=== PATIENT | male | born 1950 | race Caucasian/White ===

== ENCOUNTER → 2017-07-09 09:56 | Outpatient (CLI) | payer OTHER, SELFPAY ==
[2017-07-09 12:58] LABS: Microalbumin,Random Urine 52.4 mg/L (NO RANGE EST.)
[2017-07-14 12:08] LABS: Testosterone, Free 16.57 ng/dL (5.00-21.00)
[2017-07-14 14:24] LABS: Testosterone, % Free 3.03 % (1.50-4.20); Testosterone, Total 547 ng/dL (264-916)
== END ==
PROVIDERS: Family Provider Internal Medicine; PCP Internal Medicine; Visit Provider Internal Medicine
DX: E11.69 Type 2 diabetes mellitus with other specified complication (principal); E66.9 Obesity, unspecified; N52.9 Male erectile dysfunction, unspecified
CPT/HCPCS: 36415; 82043; 84402; 84403

== ENCOUNTER 2017-07-19 05:59 | Day surgery (SDC) | payer OTHER, SELFPAY ==
[2017-07-09 09:03] VITALS: BP 129/78; BMI 29.0
[2017-07-19 06:26] VITALS: BP 129/74; PULSE 89; RESP 18; O2SAT 98; BMI 29.3
[2017-07-19 07:15] VITALS: BP 107/56; BP 129/74; PULSE 85; RESP 16; TEMP 36.5; O2SAT 94
--- NOTE | 2017-07-19 07:17 | PCM.OPRPT ---
Problem List (1) Epigastric pain Status: Acute Report of Operation Date of Procedure: 07/19/17 Pre-Operative Diagnosis: r10.13 epigastric abdominal pain Post-Operative Diagnosis: Same Surgery/Procedure Performed:: [id number] esophagogastroduodenoscopy with biopsy Type of Anesthesia:: MAC Anesthesiologist: Abhilash Stephenson Description of Procedure: Patient was brought into the endoscopy suite. Back of his throat was sprayed with Cetacaine spray. A bite-block was placed. He was given graded anesthesia. The scope was inserted in the back of his throat and directed down through the esophagus into the stomach and into the duodenum without difficulty. Operative findings: 1. Duodenum: Normal appearance no mass lesions no ulcerations. 2. Stomach: Normal appearance no mass lesions minimal erythema was identified. Biopsy for H. pylori was obtained. Retroflexion did not reveal any signs of hiatal hernia. There was no ulcerations identified. There were no mass lesions identified. 3. Esophagus: Normal appearance no mass lesions no signs of esophagitis. The Z line was entirely normal. There was no signs of any erythema. This was an entirely normal upper scope we will wait for the biopsy for H. pylori. - Admit VTE Documentation VTE Present on Admission: No VTE Mechan Device Prophylaxis: None VTE Pharm Prophylaxis ordered?: No Reason prophylaxis not ordered:: Treatment Not Indicated
[2017-07-19 07:20] VITALS: BP 105/57; BP 129/74; PULSE 85; RESP 16; O2SAT 97
[2017-07-19 07:25] VITALS: BP 109/55; BP 129/74; PULSE 82; RESP 16; O2SAT 97
[2017-07-19 07:30] VITALS: BP 129/70; BP 129/74; PULSE 78; RESP 16; TEMP 36.3; O2SAT 100
[2017-07-19 07:45] VITALS: BP 129/74
== END 2017-07-19 07:45 | disposition home or self-care (01) ==
LOC: EN 06:00 → AC 06:02
PROVIDERS: Family Provider Internal Medicine; PCP Internal Medicine; Visit Provider Surgery
PROC: 0DJ08ZZ Inspection of Upper Intestinal Tract, Via Natural or Artificial Opening Endoscopic (ICD-10-PCS; CPT 43235; principal; 2017-07-19 06:55)
DX: R10.13 Epigastric pain (principal); E78.2 Mixed hyperlipidemia; I10 Essential (primary) hypertension; E11.9 Type 2 diabetes mellitus without complications; I44.0 Atrioventricular block, first degree; Z95.1 Presence of aortocoronary bypass graft; Z79.82 Long term (current) use of aspirin; Z87.891 Personal history of nicotine dependence
CPT/HCPCS: 43239; J7120

== ENCOUNTER 2017-08-02 16:10 | Outpatient (RCR) | payer OTHER, SELFPAY | END 2017-08-11 23:59 | LOC: NS 16:10 | PROVIDERS: Family Provider Internal Medicine; PCP Internal Medicine; Visit Provider Internal Medicine | DX: E11.69 Type 2 diabetes mellitus with other specified complication (principal); E66.9 Obesity, unspecified; Z71.3 Dietary counseling and surveillance | CPT/HCPCS: 97802 ==

== ENCOUNTER 2017-08-31 11:00 | Outpatient (RCR) | payer OTHER, SELFPAY | END 2017-09-11 23:59 | LOC: NS 11:00 | PROVIDERS: Family Provider Internal Medicine; PCP Internal Medicine; Visit Provider Internal Medicine | DX: E66.9 Obesity, unspecified (principal); E11.69 Type 2 diabetes mellitus with other specified complication; Z71.3 Dietary counseling and surveillance | CPT/HCPCS: 97803 ==

== ENCOUNTER → 2017-09-03 09:56 | Outpatient (CLI) | payer OTHER, SELFPAY | PROVIDERS: Family Provider Internal Medicine; PCP Internal Medicine; Visit Provider Nurse Practitioner Family | DX: E11.69 Type 2 diabetes mellitus with other specified complication (principal); E66.9 Obesity, unspecified | CPT/HCPCS: 36415; 83036 ==

== ENCOUNTER 2017-09-28 11:00 | Outpatient (RCR) | payer OTHER, SELFPAY | END 2017-10-11 23:59 | LOC: NS 11:00 | PROVIDERS: Family Provider Internal Medicine; PCP Internal Medicine; Visit Provider Internal Medicine | DX: E66.9 Obesity, unspecified (principal); E11.69 Type 2 diabetes mellitus with other specified complication; Z71.3 Dietary counseling and surveillance | CPT/HCPCS: 97803 ==

== ENCOUNTER 2017-10-27 09:00 | Outpatient (RCR) | payer OTHER, SELFPAY | END 2017-10-27 09:01 | disposition home or self-care (01) | LOC: NS 09:00 | PROVIDERS: Family Provider Internal Medicine; PCP Internal Medicine; Visit Provider Internal Medicine | DX: E66.9 Obesity, unspecified (principal); E11.69 Type 2 diabetes mellitus with other specified complication; Z71.3 Dietary counseling and surveillance | CPT/HCPCS: 97803 ==

== ENCOUNTER 2017-12-14 18:13 | Observation (INO) | payer OTHER, SELFPAY ==
[2017-12-14 18:14] VITALS: BP 162/80; PULSE 81; RESP 16; TEMP 36.4; O2SAT 100; BMI 28.0
--- NOTE | 2017-12-14 18:27 | ED.RN ---
PT WITH PUNCTURE ON BOTTOM OF RIGHT FOOT PT REPORTS STEPPING ON PIECE OF MULCH YESTERDAY. MINIMAL BLEEDING. REDNESS UP TO BASE OF ANKLE ON RIGHT LEG. MARKED WITH KARRIE.
--- NOTE | 2017-12-14 18:33 | ED.RN ---
pt reports stepping on mulch in the garage yesterday. puncture wound to right lower foot. reports minimal bleeding yesterday. pt with redness up into right ankle . marked with marker. pt reports tenderness but is walking.
--- NOTE | 2017-12-14 19:05 | ED.VISSUMM ---
- ER Visit Summary Date of Service: 12/14/17 Chief Complaint: Right foot cellulitis History of Present Illness: The patient is a 67 M puncture right foot yesterday around 4 PM while stepping in mulch. States put a piece of wood through his sandals. States he tried removing more with the razor yesterday. Tetanus unknown. Bleeding while removing however controlled. He is on baby aspirins. No fevers. He is a diabetic, states over past 24 hours increasing redness to the ankles. No previous similar symptoms. No allergies. Does not follow experience specialist. Physical Examination: General: Alert and oriented ?3, no acute distress HEENT: Normocephalic, atraumatic. Moist mucosa membranes Neck: supple, nontender. Cardiovascular: Regular rate and rhythm, no murmurs Respiratory: Normal breath sounds, symmetric, no distress Abdomen: Soft, nontender, nondistended Extremities: Right lower extremity: No knee or ankle tenderness. There is a puncture plantar aspect of foot near the third metatarsal. Mild tender palpation no active drainage. There is swelling erythema of the whole foot up to the ankle line. Neuro: no focal neurological deficits. Test Results: WBC 6.5. Hemoglobin 15.2. Creatinine 1.05. Glucose 153. ESR 3, CRP 4. Blood culture ?2. Right foot x-ray: No radiopaque foreign bodies, no soft tissue gas. Emergency Department Course and Treatment: Patient with progressive cellulitis foot to his ankle, erythema was outlined by nursing on presentation, on my evaluation the erythema was moving past the line. He is a diabetic. There is no drainage from the wound. Labs are stable, slightly elevated CRP. Was given Zosyn and vancomycin IV. There is no radiopaque foreign bodies on x-ray. Concerns for residual foreign body with the puncture causing his cellulitis, I did speak with covering experience specialist, Dr. Espinoza, he will follow-up as an inpatient. He states if symptoms do not improve tomorrow would likely get an MRI of the foot. I spoke with Dr. Yip, who will admit for further management. Treatment Plan: [] Disposition: Admission Impression: 1. Right foot cellulitis 2. Right foot puncture 3. History diabetes This note was generated with [employer] software. It may contain incorrect words, spelling, and punctuation that were not noted in review of the chart prior to signing ED Disposition - Plan for ED Patient: Disposition: Acute Care Hospital [facility] Chief Complaint: Lower Extremity Injury Diagnosis: Right foot and ankle cellulitis, Puncture wound of right foot Referrals: Orlando Claire MD [Primary Care Provider] -
[2017-12-14 19:21] LABS: Absolute Lymphocyte Count 1.67 X10^3/ul (0.83-4.51); Absolute Neutrophil Count 3.8 X10^3/uL (2.0-7.7); Basophil# 0.04 X10^3/uL; Basophil% 0.6 % (0-1); Eosinophil# 0.28 X10^3/uL; Eosinophils% 4.3 % (0-5); Hematocrit 45.5 % (40-54); Hemoglobin 15.2 g/dl (13.0-16.5); Lymphocyte # 1.67 X10^3/ul (4.0); Lymphocyte % 25.7 % (19-41); Mean Corp Hgb Conc 33.4 g/gl (32-36); Mean Corpuscular Hgb 31.8 pg (27.0-32.0); Mean Corpuscular Volume 95.2 fL (80-94); Mean Platelet Vol. 9.5 fl (6.2-12.0); Monocyte# 0.67 X10^3/uL; Monocyte% 10.3 % (0-10); Neutrophil # 3.84 X10^3/uL (2.7-7.7); Neutrophil % 58.9 % (47-70); Platelet Count 238 K/mm3 (150-450); RBC Distribution Width CV 12.4 % (11.6-14.6); RBC Distribution Width SD 42.7 fl (35.1-43.9); Red Blood Count 4.78 M/mm3 (4.6-6.2); White Blood Count 6.5 K/mm3 (4.4-11.0)
[2017-12-14 19:22] LABS: POSITIVE COUNT NO; POSITIVE DIFFERENTIAL NO; POSITIVE MORPHOLOGY NO
[2017-12-14 19:30] LABS: Prothrombin Time (Protime)PT. 13.3 SECONDS (11.7-14.9)
[2017-12-14] MEDS: Diphth,Pertuss(Acell),Tet Vac 0.5 ML Vial IM (19:30)
[2017-12-14 19:31] LABS: Partial Thromboplast Time 30.4 Seconds (24.1-36.2)
[2017-12-14 19:41] LABS: Anion Gap 7 (5-15); BUN 26 mg/dL (7-18); BUN/Creat Ratio 24.8 RATIO (10-20); CRP, High Sensitivity Cardiac 4.08 mg/L; Calcium,Total 8.8 mg/dL (8.5-10.1); Chloride 102 mmol/L (98-107); Creatinine, Serum 1.05 mg/dL (0.70-1.30); EST Glomerular Filtration Rate 75 mL/min (>60); Est Glom Filt Rate - Afr Amer 91 mL/min (>60); Estimated Creatinine Clearance 81.55 ml/min; Glucose 153 mg/dL (74-106); Potassium 4.3 mmol/L (3.5-5.1); Sodium Level 138 mmol/L (136-145)
[2017-12-14 19:48] LABS: Erythrocyte Sedimentation Rate 3 mm/hr (0-20)
[2017-12-14 20:28] VITALS: BP 131/64; PULSE 82; RESP 14; O2SAT 96
--- NOTE | 2017-12-14 20:50 | RAD_ITS ---
STUDY: X-RAY - RIGHT FOOT CLINICAL: Male, 67 years old. PATIENT STEPPED ON OBJECT 4PM YESTERDAY, POSSIBLE FOREIGN BODY POSTERIOR FOOT NEAR BASE OF METATARSALS, NOW HAS SYMPTOMS OF CELLULITIS. TECHNIQUE: 3 view(s) of the foot. COMPARISON: None. FINDINGS: Normal talus, calcaneus, and tarsal bones. Normal visualized subtalar, talonavicular, calcaneocuboid, tarsal and tarsometatarsal articulations. Normal metatarsi. Normal metatarsophalangeal joint of the great toe. Normal tibial and fibular sesamoid bones. Normal interphalangeal joint of the great toe. Normal phalanges of the great toe. Normal second through fifth metatarsophalangeal joints. Normal interphalangeal joints and phalanges of the lesser toes. The soft tissue structures are unremarkable. RAD/Foot min 3 Views IMPRESSION: Normal x-ray examination of the foot. There are no radiodense foreign bodies noted. Electronically Signed: Eyal Casarez MD at 21:32 EDT , Service support ,
[2017-12-14 22:18] VITALS: BP 130/74; PULSE 85; RESP 14; TEMP 36.1; O2SAT 99
[2017-12-14 22:20] LABS: Bedside Glucose 100 mg/dL (70-110)
--- NOTE | 2017-12-14 23:02 | PCM.HP.STD ---
Problem List (1) Cellulitis Status: Acute Qualifiers: Site of cellulitis: extremity Site of cellulitis of extremity: lower extremity Laterality: right Qualified Code(s): L03.115 - Cellulitis of right lower limb (2) Diabetes mellitus type 2 in nonobese Status: Chronic (3) Puncture wound of right foot Status: Acute (4) GERD (gastroesophageal reflux disease) Status: Chronic (5) Type 2 diabetes mellitus Status: Chronic (6) Epigastric pain Status: Resolved (7) Erectile dysfunction Status: Chronic (8) Valvular heart disease Status: Chronic Comment: Bicuspid aortic valve, mitral valve prolapse (9) Hyperlipemia, mixed Status: Chronic (10) Essential (primary) hypertension Status: Chronic (11) Hx of tonsillectomy Status: Chronic (12) Atherosclerosis of [place] coronary artery of [place] heart without angina pectoris Status: Chronic Comment: DYSON to LAD, Radial artery to high LCX, IVETT composite graft to lateral LCX 04/07/2005; (13) Overweight (BMI 25.0-29.9) Status: Chronic (14) History of tobacco use Status: Chronic (15) Unstable angina pectoris Status: Acute (16) S/P CABG x 2 Status: Chronic (17) Bicuspid aortic valve Status: Chronic (18) MVP (mitral valve prolapse) Status: Chronic History of Present Illness Date of Admission: 12/14/17 Chief Complaint: redness and pain in the Right foot The patient is a 67 year old M with a past medical history of hypertension, diabetes mellitus type 2, hyperlipidemia, coronary artery disease, CABG ?2 vessels in 2004, bicuspid aortic valve, mitral valve prolapse and GERD who presented to the emergency department at [facility] on 12/14/2017 complaining of pain with weightbearing in his right foot associated with redness extending up to the ankle. On 12/13/17 he was walking outside in his slippers through some mulch and apparently his slipper was penetrated by some sliver of wood. He felt a foreign body type sensation in his foot and he initially tried to do get out with a needle and when this was nonproductive he used a razor blade. Today his right foot is mildly swollen and painful with weightbearing. The erythema is now extending to just above the ankle. He denies fevers, chills, sweats. Plain x-ray of the foot in the emergency room revealed no foreign objects. Temp at presentation to the ER was 97.5?F. White blood cell count is normal at 6.5 with a normal differential. Electrolytes are normal and the BUN is mildly increased with a creatinine of 1.05. The sed rate is 3 and the CRP is 4.08. He was given Vanco and Zosyn in the ED. The ED physician was in contact with Dr. Espinoza who will see him in consult in the AM and if there is no improvement will recommend and MRI of the foot. On PE there is no DC from the puncture wound. Past Medical History Past Medical History (Chronic Problems): Chronic Problems (This Medical Record has been edited. Action required.) Diabetes mellitus type 2 in nonobese (Chronic) GERD (gastroesophageal reflux disease) (Chronic) Type 2 diabetes mellitus (Chronic) Erectile dysfunction (Chronic) Valvular heart disease (Chronic) Bicuspid aortic valve, mitral valve prolapse Hyperlipemia, mixed (Chronic) Essential (primary) hypertension (Chronic) Hx of tonsillectomy (Chronic) Atherosclerosis of [place] coronary artery of [place] heart without angina pectoris (Chronic) DYSON to LAD, Radial artery to high LCX, IVETT composite graft to lateral LCX 04/07/2005; Overweight (BMI 25.0-29.9) (Chronic) History of tobacco use (Chronic) S/P CABG x 2 (Chronic ~04/07/05) Bicuspid aortic valve (Chronic) MVP (mitral valve prolapse) (Chronic) Medical History: Medical History (This Medical Record has been edited. Action required.) Hyperlipemia, mixed (Chronic) E78.2 Essential (primary) hypertension (Chronic) I10 Diabetes mellitus type 2 in obese (Chronic) E11.69, E66.9 Overweight (BMI 25.0-29.9) (Chronic) E66.3 History of tobacco use (Chronic) Z87.891 Unstable angina pectoris (Acute) I20.0 Bicuspid aortic valve (Chronic) Q23.1 MVP (mitral valve prolapse) (Chronic) I34.1 Allergies No Known Allergies Allergy (Verified 12/14/17 18:15) Home Medications: Ambulatory Orders Medication Instructions Recorded Aspirin 325 mg PO DAILY 06/03/17 Niacin [Niacin ER] 500 mg PO DAILY 06/03/17 Ramipril [Altace] 2.5 mg PO DAILY 06/03/17 blood sugar diagnostic strips See Dose Instructions .ROUTE 06/09/17 .MEDSUPPLY #50 ea blood-glucose meter See Dose Instructions .ROUTE 06/09/17 .MEDSUPPLY #1 ea easy touch test strips #100 ea 07/09/17 lancets 30 gauge See Dose Instructions .ROUTE 07/14/17 .MEDSUPPLY #100 ea blood pressure monitor kit See Dose Instructions .ROUTE 08/06/17 .MEDSUPPLY #1 ea atorvastatin 40 mg tablet 20 mg PO QHS tab 10/15/17 metformin 1,000 mg tablet 1,000 mg PO BID #180 tab 10/15/17 tadalafil 20 mg tablet 20 mg PO QDAY PRN #6 tab 10/15/17 Surgical History: Surgical History (This Medical Record has been edited. Action required.) S/P CABG x 2 (Chronic) Onset Date: ~04/07/05 Z95.1 Surgical History: coronary bypass surgery - 2004, tonsillectomy Psychiatric History: No pertinent psych hx Lives: Spouse/ Significant Other Smoking Status: Never smoker - quit in 1997 Tobacco Use: Non-smoker Alcohol: Occasional Drugs: None - *Family History Maternal Family History: Family History (This Medical Record has been edited. Action required.) Mother CAD (coronary artery disease) Father CAD (coronary artery disease) Diabetes History Items: Heart Disease Paternal Family History: Family History (This Medical Record has been edited. Action required.) Mother CAD (coronary artery disease) Father CAD (coronary artery disease) Diabetes History Items: Heart Disease Sibling Family History: Family History (This Medical Record has been edited. Action required.) Mother CAD (coronary artery disease) Father CAD (coronary artery disease) Diabetes History Items: Cancer - of the throat in his brother who was a heavy drinker and a smoker Review of Systems Constitutional: Denies: Chills, Fever, Weight Change Eyes: Denies: Vision Change HEENT: Denies: Head Aches, Sinus Congestion, Sinus Drainage Cardiovascular: Denies: Chest Pain, Palpitations Respiratory: Denies: Cough, Shortness of breath at rest, Sputum production Gastrointestinal: Denies: Abdominal Pain, Nausea, Vomiting Genitourinary: Denies: Dysuria Musculoskeletal: Reports: Foot Pain - right. Denies: Joint Pain, Joint Tenderness Skin: Denies: Rash, Wounds Neurological: Denies: Numbness, Tingling, Focal weakness Psychiatric: Denies: Anxiety, Depression, Homicidal Ideations, Suicidal Ideations Hematologic/ Lymphatic: Denies: Easy Bruising, Easy Bleeding, Hx of blood clot VTE Information - Inpt Only VTE Present on Admission: No VTE Mechan Device Prophylaxis: None - he is ambulatory and the risk is only 2 VTE Pharm Prophylaxis ordered?: Yes Patient Problems: Active and Suspected Problems (This Medical Record has been edited. Action required.) Puncture wound of right foot (Acute) Cellulitis (Acute) - Physical Exam General: Alert, Oriented x3, Cooperative HEENT: Atraumatic, PERRLA, EOMI, Normocephalic Oral: No Gingival or Mucosal Lesions/ Ulcerations, Dry Mucosa Neck: Supple, No JVD, Negative Carotid Bruits, No Nodes, Trachea Midline Lungs: Clear to auscultation, Normal air movement Cardiovascular: Regular rate, Regular Rhythm, Normal S1, Normal S2, No murmurs, No rub noted, No Gallop Abdomen: Bowel Sounds Present, Soft, Non Tender Extremities: - - there is an opening in the skin over the plantar surface of the R foot. There is edema around the puncture site. The toes and dorsum of the foot are erythematous and the erythema extends to just proximal to the ankle. No DC could be expressed from the wound Skin: No rashes, Ulcer/ Wound - R foot plantar surface Musculoskeletal: No Muscle Wasting Neurological: Cranial nerves II-XII grossly intact, Neuro grossly intact Psych/Mental Status: Normal Affect, Appropriate Vital Signs Temp Pulse Resp BP Pulse Ox 97.0 F L 85 14 130/74 H 99 12/14/17 22:18 12/14/17 22:18 12/14/17 22:18 12/14/17 22:18 12/14/17 22:18 Oxygen Delivery Method Room Air Weight: 218 lb Body Mass Index (BMI) 28.0 Finger Stick Blood Glucose 100 Laboratory Tests Past 24 Hrs 12/14/17 12/14/17 12/14/17 19:13 19:13 19:13 WBC 6.5 RBC 4.78 Hgb 15.2 Hct 45.5 MCV 95.2 H MCH 31.8 MCHC 33.4 RDW 12.4 RDW Differential 42.7 Plt Count 238 MPV 9.5 Immature Gran % (Auto) 0.200 Neut % (Auto) 58.9 Lymph % (Auto) 25.7 [place] % (Auto) 10.3 H Eos % (Auto) 4.3 Baso % (Auto) 0.6 Absolute Neuts (auto) 3.8 Absolute Lymphs (auto) 1.67 Total Counted Not Reportable ESR 3 PT 13.3 INR 1.0 APTT 30.4 Sodium 138 Potassium 4.3 Chloride 102 Carbon Dioxide 29.0 Anion Gap 7 BUN 26 H Creatinine 1.05 Estim Creat Clear Calc 81.55 Est GFR (MDRD) Af Amer 91 Est GFR (MDRD) Non-Af 75 BUN/Creatinine Ratio 24.8 H Glucose 153 H Calcium 8.8 C-React Prot High Sens 4.08 H POC Glucose 12/14/17 22:09 POC Glucose 100 Assessment/Plan All Active Problems (This Medical Record has been edited. Action required.) Puncture wound of right foot (Acute) Cellulitis (Acute) Unstable angina pectoris (Acute) Epigastric pain (Resolved) Impressions 1. Puncture wound plantar surface of the Right foot 2. diabetic foot infection 3. DM II 4. Hypertension 5. Hyperlipidemia 6. Coronary artery disease 7. History of CABG ?2 in 2004 8. GERD 9. Bicuspid aortic valve 10. Mild mitral valve prolapse Admit to medical floor for observation Consult Dr. Espinoza check a HGBA1C Tight BS control dry dressing Recheck lab in the AM No hx of MRSA and not recently in a health care facility so will place him on Rocephin and Metronidazole per protocol Elevate the RLE If the erythema increases he gets worse in any way overnight will check an MRI of the right foot in the AM Code Visit OBSV E&M: [id number] Initial observation care L3
[2017-12-15 00:20] VITALS: BP 134/70; PULSE 82; RESP 16; TEMP 36.3; O2SAT 96
[2017-12-15] MEDS: 0.9% Normal Saline 1,000 ML 100 ML IV (00:51)
[2017-12-15] MEDS: 0.9% NaCl Peripheral Flush Adult/Peds IV (00:53)
[2017-12-15 00:57] VITALS: BMI 28.0; BMI 28.9
[2017-12-15] MEDS: Ceftriaxone 1 GM/50 ML BAG IV (02:22)
[2017-12-15 05:47] VITALS: BP 132/70; PULSE 83; RESP 18; TEMP 36.4; O2SAT 95
[2017-12-15 05:54] LABS: Absolute Lymphocyte Count 1.51 X10^3/ul (0.83-4.51); Absolute Neutrophil Count 3.1 X10^3/uL (2.0-7.7); Basophil# 0.04 X10^3/uL; Basophil% 0.7 % (0-1); Eosinophil# 0.28 X10^3/uL; Hematocrit 44.3 % (40-54); Hemoglobin 15.2 g/dl (13.0-16.5); Lymphocyte # 1.51 X10^3/ul (4.0); Lymphocyte % 26.9 % (19-41); Mean Corp Hgb Conc 34.3 g/gl (32-36); Mean Corpuscular Hgb 32.5 pg (27.0-32.0); Mean Corpuscular Volume 94.7 fL (80-94); Mean Platelet Vol. 9.8 fl (6.2-12.0); Monocyte# 0.67 X10^3/uL; Monocyte% 11.9 % (0-10); Neutrophil # 3.09 X10^3/uL (2.7-7.7); Neutrophil % 55.1 % (47-70); Platelet Count 228 K/mm3 (150-450); RBC Distribution Width CV 12.1 % (11.6-14.6); RBC Distribution Width SD 41.4 fl (35.1-43.9); Red Blood Count 4.68 M/mm3 (4.6-6.2); White Blood Count 5.6 K/mm3 (4.4-11.0)
[2017-12-15 06:00] LABS: Anion Gap 8 (5-15); BUN 22 mg/dL (7-18); BUN/Creat Ratio 23.7 RATIO (10-20); Calcium,Total 8.5 mg/dL (8.5-10.1); Chloride 107 mmol/L (98-107); Creatinine, Serum 0.93 mg/dL (0.70-1.30); EST Glomerular Filtration Rate 87 mL/min (>60); Est Glom Filt Rate - Afr Amer 105 mL/min (>60); Estimated Creatinine Clearance 92.07 ml/min; Glucose 145 mg/dL (74-106); Potassium 4.1 mmol/L (3.5-5.1); Sodium Level 141 mmol/L (136-145)
[2017-12-15 06:15] LABS: POSITIVE COUNT NO; POSITIVE DIFFERENTIAL NO; POSITIVE MORPHOLOGY NO
[2017-12-15 07:15] LABS: Hemoglobin A1c 6.4 % (4.2-6.3)
[2017-12-15 07:26] LABS: Bedside Glucose 146 mg/dL (70-110)
[2017-12-15 10:20] VITALS: BP 144/79; PULSE 92; RESP 16; TEMP 36.6; O2SAT 97
[2017-12-15] MEDS: metFORMIN HCl 1,000 MG Tablet 1000 MG PO (10:25)
[2017-12-15] MEDS: Ramipril 2.5 MG Capsule PO (10:27)
--- NOTE | 2017-12-15 10:31 | PCM.PROGNOTE ---
Patient Problems: Active and Suspected Problems (This Medical Record has been edited. Action required.) Puncture wound of right foot (Acute) Cellulitis (Acute) Subjective: This 67 year old diabetic male was consulted to podiatry after being admitted through the emergency room for cellulitis of foot and lower ankle after having stepped on a piece of mulch Wednesday around 4pm that went through the bottom of his slipper and into his foot. Patient is resting in bed with in the room. Patient says that they tried to make sure nothing was left in the foot using a pin and that the patient also use a razor blade to lightly try to remove anything that may have been left. He says that over the course of yesterday he noticed some redness and swelling and they decided to come to the ER since he is diabetic. Patient says there is some slight tenderness around the area but it is getting better. He also denies ever having any feelings of nausea, vomiting, fever, or chills. - Physical Exam General: Alert, Oriented x3, Cooperative, No apparent distress Extremities: Capillary Refill Less than 3 Seconds - to distal digits of foot bilateral, No Calf Tenderness - negative marizol and antoine sign bilateral, Edema - Very slight edema appreciated to plantar forefoot, but this is much improved since last night according to the patient and his , Peripheral Pulses Normal - DP and PT pulses palpable bilateral Skin: Ulcer/ Wound - Small puncture wound appreciated to plantar right foot. with some overlying hyperkeratotic tissue. This hyperkeratotic tissue was debrided. There was no remaining foreign body able to be visualized in the immediate area. There was no purulence, no deep probing or tracking. No cellulitis appreciated today. Some minor edema appreciated to forefoot plantarly, however, this is much improved since last night according to the patient and his . No increase in warmth today appreciated to foot. Musculoskeletal: Tenderness - Some slight tenderness appreciated in all directions surrounding the puncture wound. This tenderness is much improved again since yesterday, according to the patient. Neurological: Sensory exam intact to light touch and pain Psych/Mental Status: Normal Affect, Appropriate Vital Signs Temp Pulse Resp BP Pulse Ox 98 F 92 16 144/79 H 97 12/15/17 10:20 12/15/17 10:20 12/15/17 10:20 12/15/17 10:20 12/15/17 10:20 Oxygen Delivery Method Room Air Weight: 102.1 kg Body Mass Index (BMI) 28.9 Intake and Output for Last 24 Hours 12/13/17 12/14/17 12/15/17 23:59 23:59 23:59 Intake Total 677 / 677 Balance 677 / 677 Laboratory Tests Past 24 Hrs 12/15/17 12/15/17 12/15/17 05:05 05:05 05:05 WBC 5.6 RBC 4.68 Hgb 15.2 Hct 44.3 MCV 94.7 H MCH 32.5 H MCHC 34.3 RDW 12.1 RDW Differential 41.4 Plt Count 228 MPV 9.8 Immature Gran % (Auto) 0.400 Neut % (Auto) 55.1 Lymph % (Auto) 26.9 [place] % (Auto) 11.9 H Eos % (Auto) 5.0 Baso % (Auto) 0.7 Absolute Neuts (auto) 3.1 Absolute Lymphs (auto) 1.51 Total Counted Not Reportable Sodium 141 Potassium 4.1 Chloride 107 Carbon Dioxide 26.0 Anion Gap 8 BUN 22 H Creatinine 0.93 Estim Creat Clear Calc 92.07 Est GFR (MDRD) Af Amer 105 Est GFR (MDRD) Non-Af 87 BUN/Creatinine Ratio 23.7 H Glucose 145 H Hemoglobin A1c 6.4 H Calcium 8.5 POC Glucose 12/15/17 07:05 POC Glucose 146 H Medical Necessity - Tobacco Use Smoking Status: Former smoker Tobacco Use: Non-smoker Assessment/Plan All Active Problems (This Medical Record has been edited. Action required.) Puncture wound of right foot (Acute) Cellulitis (Acute) Unstable angina pectoris (Acute) Epigastric pain (Resolved) Puncture wound right plantar forefoot Cellulitis right foot-resolved Pain right foot This patient was carefully examined and evaluated bedside this morning. His vital signs remain stable at this time. His WBC is 5.6 and ESR is 3. Blood cultures pending. 3 view foot x-rays were taken last evening and results showed no radiodense foreign bodies and no soft tissue emphysema noted. Could consider MRI if necessary in the future. Over the last evening, the patient's cellulitis has resolved while on antibiotics. No erythema to the area today. Some improving edema to plantar forefoot as well as improving tenderness to area. The site of the puncture was carefully cleansed and then the area was carefully debrided using a number 15 blade in a selective manner. Upon debridement, the patient said he noticed even more of an improvement to his tenderness, but still noted some slight tenderness around the area. There was no purulence or any other drainage appreciated from the area, and no remaining foreign body was able to be visualized in the immediate area. If necessary in the future, could consider MRI or other imaging to evaluate if there is any remaining foreign body in the foot. The area was again carefully cleansed and then dressed with sterile gauze and katty dressing. If patient is discharged, I discussed the importance of keeping weight and pressure off the area until the forefoot is healed. They are to continue to carefully cleanse the area daily and dress the area in the manner discussed above. They were educated on all signs and symptoms of local and systemic infection to watch for. The patient will follow up at [facility] upon discharge for continued care. Please contact with any questions or concerns. Podiatry will continue to follow while in house.
[2017-12-15 11:31] LABS: Bedside Glucose 193 mg/dL (70-110)
--- NOTE | 2017-12-15 11:38 | PCM.DC ---
- Discharge Diagnoses Current Active Problems: Current Active and Chronic Problems (This Medical Record has been edited. Action required.) Puncture wound of right foot (Acute) Cellulitis (Acute) Diabetes mellitus type 2 in nonobese (Chronic) Reason(s) for Visit for Discharge Instructions: R Foot puncture wound with redness of surrounding skin You will use the following diet at home:: Calorie/Carbohydrate Controlled (specify 1200, 1400, etc) Your food should be the consistency of: Regular Discharge Activity: Return to Normal Activity - When your pain is controlled. Call your doctor if your incision/area has: Foul Smelling Discharge Call your doctor if you observe: Fever of 101 or Higher, Uncontrolled pain Allergies/Adverse Reactions: Allergies No Known Allergies Allergy (Verified 12/14/17 18:15) Medications to take at Discharge Aspirin 325 mg PO DAILY 06/03/17 Niacin [Niacin ER] 500 mg PO DAILY 06/03/17 Ramipril [Altace] 2.5 mg PO DAILY 06/03/17 blood sugar diagnostic strips See Dose Instructions .ROUTE .MEDSUPPLY #50 ea 06/09/17 blood-glucose meter See Dose Instructions .ROUTE .MEDSUPPLY #1 ea 06/09/17 easy touch test strips #100 ea 07/09/17 lancets 30 gauge See Dose Instructions .ROUTE .MEDSUPPLY #100 ea 07/14/17 blood pressure monitor kit See Dose Instructions .ROUTE .MEDSUPPLY #1 ea 08/06/17 atorvastatin 40 mg tablet 20 mg PO QHS tab 10/15/17 metformin 1,000 mg tablet 1,000 mg PO BID #180 tab 10/15/17 tadalafil 20 mg tablet 20 mg PO QDAY PRN #6 tab 10/15/17 Acetaminophen [Tylenol Tablet] 650 mg PO Q6H PRN PRN 10 Days #30 tab 12/15/17 Ciprofloxacin [Cipro] 500 mg PO BID 6 Days #12 tab 12/15/17 Metronidazole 500 mg PO BID 6 Days #12 tab 12/15/17 The following prescriptions were given: Acetaminophen [Tylenol Tablet] 650 mg PO Q6H PRN PRN 10 Days #30 tab PRN Reason: Mild Pain (scale 0-3)/T>100.7 Ciprofloxacin [Cipro] 500 mg PO BID 6 Days #12 tab Metronidazole 500 mg PO BID 6 Days #12 tab Primary Care Physician: Orlando Claire MD [Primary Care Provider] - Please follow up with your Primary Care Physician in: in 1 to 2 week Test Results: Please Follow Up With: Juan M Espinoza DPM When: within one to 2 weeks Proposed Discharge Date: 12/15/17
--- NOTE | 2017-12-15 11:48 | DCINST_ITS ---
- Discharge Diagnoses Current Active Problems: Current Active and Chronic Problems (This Medical Record has been edited. Action required.) Puncture wound of right foot (Acute) Cellulitis (Acute) Diabetes mellitus type 2 in nonobese (Chronic) Reason(s) for Visit for Discharge Instructions: R Foot puncture wound with redness of surrounding skin You will use the following diet at home:: Calorie/Carbohydrate Controlled ( specify 1200, 1400, etc) Your food should be the consistency of: Regular Discharge Activity: Return to Normal Activity - When your pain is controlled. Call your doctor if your incision/area has: Foul Smelling Discharge Call your doctor if you observe: Fever of 101 or Higher, Uncontrolled pain Allergies/Adverse Reactions: Allergies No Known Allergies Allergy (Verified 12/14/17 18:15) Medications to take at Discharge Aspirin 325 mg PO DAILY 06/03/17 Niacin [Niacin ER] 500 mg PO DAILY 06/03/17 Ramipril [Altace] 2.5 mg PO DAILY 06/03/17 blood sugar diagnostic strips See Dose Instructions .ROUTE .MEDSUPPLY #50 ea blood-glucose meter See Dose Instructions .ROUTE .MEDSUPPLY #1 ea 06/09/17 easy touch test strips #100 ea 07/09/17 lancets 30 gauge See Dose Instructions .ROUTE .MEDSUPPLY #100 ea 07/14/17 blood pressure monitor kit See Dose Instructions .ROUTE .MEDSUPPLY #1 ea atorvastatin 40 mg tablet 20 mg PO QHS tab 10/15/17 metformin 1,000 mg tablet 1,000 mg PO BID #180 tab 10/15/17 tadalafil 20 mg tablet 20 mg PO QDAY PRN #6 tab 10/15/17 Acetaminophen [Tylenol Tablet] 650 mg PO Q6H PRN PRN 10 Days #30 tab 12/15/17 Ciprofloxacin [Cipro] 500 mg PO BID 6 Days #12 tab 12/15/17 Metronidazole 500 mg PO BID 6 Days #12 tab 12/15/17 The following prescriptions were given: Acetaminophen [Tylenol Tablet] 650 mg PO Q6H PRN PRN 10 Days #30 tab PRN Reason: Mild Pain (scale 0-3)/T>100.7 Ciprofloxacin [Cipro] 500 mg PO BID 6 Days #12 tab Metronidazole 500 mg PO BID 6 Days #12 tab Primary Care Physician: Orlando Claire MD [Primary Care Provider] - Please follow up with your Primary Care Physician in: in 1 to 2 week Test Results: Please Follow Up With: Juan M Espinoza DPM When: within one to 2 weeks Proposed Discharge Date: 12/15/17
--- NOTE | 2017-12-15 17:03 | PCM.DC.SUM ---
Discharge Date and Diagnosis Date of Admission: 12/14/17 Date of Discharge: 12/15/17 - Secondary Discharge Diagnosis Chronic Problems (This Medical Record has been edited. Action required.) Diabetes mellitus type 2 in nonobese (Chronic) GERD (gastroesophageal reflux disease) (Chronic) Type 2 diabetes mellitus (Chronic) Erectile dysfunction (Chronic) Valvular heart disease (Chronic) Bicuspid aortic valve, mitral valve prolapse Hyperlipemia, mixed (Chronic) Essential (primary) hypertension (Chronic) Hx of tonsillectomy (Chronic) Atherosclerosis of [place] coronary artery of [place] heart without angina pectoris (Chronic) DYSON to LAD, Radial artery to high LCX, IVETT composite graft to lateral LCX 04/07/2005; Overweight (BMI 25.0-29.9) (Chronic) History of tobacco use (Chronic) S/P CABG x 2 (Chronic ~04/07/05) Bicuspid aortic valve (Chronic) MVP (mitral valve prolapse) (Chronic) Hospital Course and Treatment Imaging Results: Impressions Foot X-Ray 12/14/17 20:50 IMPRESSION: Normal x-ray examination of the foot. There are no radiodense foreign bodies noted. Electronically Signed: Eyal Casarez MD at 21:32 EDT , Service support , 12/14/17 20:50 Xray Foot [Foot min 3 Views] [RAD] Stat Laboratory Results 12/14/17 12/14/17 12/14/17 Range/Units 19:13 19:13 19:13 WBC 6.5 (4.4-11.0) K/mm3 RBC 4.78 (4.6-6.2) M/mm3 Hgb 15.2 (13.0-16.5) g/dl Hct 45.5 (40-54) % MCV 95.2 H (80-94) fL MCH 31.8 (27.0-32.0) pg MCHC 33.4 (32-36) g/gl RDW 12.4 (11.6-14.6) % RDW Differential 42.7 (35.1-43.9) fl Plt Count 238 (150-450) K/mm3 MPV 9.5 (6.2-12.0) fl Immature Gran % (Auto) 0.200 (0.0-0.9) % Neut % (Auto) 58.9 (47-70) % Lymph % (Auto) 25.7 (19-41) % [place] % (Auto) 10.3 H (0-10) % Eos % (Auto) 4.3 (0-5) % Baso % (Auto) 0.6 (0-1) % Absolute Neuts (auto) 3.8 (2.0-7.7) X10^3/uL Absolute Lymphs (auto) 1.67 (0.83-4.51) X10^3/ul Total Counted Not Reportable ESR 3 (0-20) mm/hr PT 13.3 (11.7-14.9) SECONDS INR 1.0 APTT 30.4 (24.1-36.2) Seconds Sodium 138 (136-145) mmol/L Potassium 4.3 (3.5-5.1) mmol/L Chloride 102 (98-107) mmol/L Carbon Dioxide 29.0 (21.0-32.0) mmol/L Anion Gap 7 (5-15) BUN 26 H (7-18) mg/dL Creatinine 1.05 (0.70-1.30) mg/dL Estim Creat Clear Calc 81.55 ml/min Est GFR (MDRD) Af Amer 91 (>60) mL/min Est GFR (MDRD) Non-Af 75 (>60) mL/min BUN/Creatinine Ratio 24.8 H (10-20) RATIO Glucose 153 H (74-106) mg/dL Hemoglobin A1c (4.2-6.3) % Calcium 8.8 (8.5-10.1) mg/dL C-React Prot High Sens 4.08 H ( - 3.00) mg/L POC Glucose (70-110) mg/dL 12/14/17 12/15/17 12/15/17 Range/Units 22:09 05:05 05:05 WBC 5.6 (4.4-11.0) K/mm3 RBC 4.68 (4.6-6.2) M/mm3 Hgb 15.2 (13.0-16.5) g/dl Hct 44.3 (40-54) % MCV 94.7 H (80-94) fL MCH 32.5 H (27.0-32.0) pg MCHC 34.3 (32-36) g/gl RDW 12.1 (11.6-14.6) % RDW Differential 41.4 (35.1-43.9) fl Plt Count 228 (150-450) K/mm3 MPV 9.8 (6.2-12.0) fl Immature Gran % (Auto) 0.400 (0.0-0.9) % Neut % (Auto) 55.1 (47-70) % Lymph % (Auto) 26.9 (19-41) % [place] % (Auto) 11.9 H (0-10) % Eos % (Auto) 5.0 (0-5) % Baso % (Auto) 0.7 (0-1) % Absolute Neuts (auto) 3.1 (2.0-7.7) X10^3/uL Absolute Lymphs (auto) 1.51 (0.83-4.51) X10^3/ul Total Counted Not Reportable ESR (0-20) mm/hr PT (11.7-14.9) SECONDS INR APTT (24.1-36.2) Seconds Sodium 141 (136-145) mmol/L Potassium 4.1 (3.5-5.1) mmol/L Chloride 107 (98-107) mmol/L Carbon Dioxide 26.0 (21.0-32.0) mmol/L Anion Gap 8 (5-15) BUN 22 H (7-18) mg/dL Creatinine 0.93 (0.70-1.30) mg/dL Estim Creat Clear Calc 92.07 ml/min Est GFR (MDRD) Af Amer 105 (>60) mL/min Est GFR (MDRD) Non-Af 87 (>60) mL/min BUN/Creatinine Ratio 23.7 H (10-20) RATIO Glucose 145 H (74-106) mg/dL Hemoglobin A1c (4.2-6.3) % Calcium 8.5 (8.5-10.1) mg/dL C-React Prot High Sens ( - 3.00) mg/L POC Glucose 100 (70-110) mg/dL 12/15/17 12/15/17 12/15/17 Range/Units 05:05 07:05 11:21 WBC (4.4-11.0) K/mm3 RBC (4.6-6.2) M/mm3 Hgb (13.0-16.5) g/dl Hct (40-54) % MCV (80-94) fL MCH (27.0-32.0) pg MCHC (32-36) g/gl RDW (11.6-14.6) % RDW Differential (35.1-43.9) fl Plt Count (150-450) K/mm3 MPV (6.2-12.0) fl Immature Gran % (Auto) (0.0-0.9) % Neut % (Auto) (47-70) % Lymph % (Auto) (19-41) % [place] % (Auto) (0-10) % Eos % (Auto) (0-5) % Baso % (Auto) (0-1) % Absolute Neuts (auto) (2.0-7.7) X10^3/uL Absolute Lymphs (auto) (0.83-4.51) X10^3/ul Total Counted ESR (0-20) mm/hr PT (11.7-14.9) SECONDS INR APTT (24.1-36.2) Seconds Sodium (136-145) mmol/L Potassium (3.5-5.1) mmol/L Chloride (98-107) mmol/L Carbon Dioxide (21.0-32.0) mmol/L Anion Gap (5-15) BUN (7-18) mg/dL Creatinine (0.70-1.30) mg/dL Estim Creat Clear Calc ml/min Est GFR (MDRD) Af Amer (>60) mL/min Est GFR (MDRD) Non-Af (>60) mL/min BUN/Creatinine Ratio (10-20) RATIO Glucose (74-106) mg/dL Hemoglobin A1c 6.4 H (4.2-6.3) % Calcium (8.5-10.1) mg/dL C-React Prot High Sens ( - 3.00) mg/L POC Glucose 146 H 193 H (70-110) mg/dL Podiatry Operations: None Procedures: - - Incision and drainage Summary of Care Provided: The patient is a 67 year old M with a significant history of diabetes, CABG, bicuspid aortic valve and mitral valve prolapse who was admitted because of a puncture wound of the plantar side of his right foot with associated cellulitis. In the emergency department patient was treated with vancomycin and Zosyn; and he had a tetanus shot. In patients patient was treated with IV ceftriaxone and IV Flagyl. Podiatry was consulted. Podiatry did incision and drainage of the puncture wound. The patient noticed a dramatic improvements of the pain and swelling of his right foot. A shared decision was made to discharge patient home on oral antibiotics. Oral ciprofloxacin and oral metronidazole was prescribed. Patient was instructed to return to the emergency department if his pain increases [] Discharge Diet: Carb Control Diet Discharge Activity: Return to Normal Activity - When your pain is controlled. Call your doctor if your incision/area has: Foul Smelling Discharge Call your doctor if you observe: Fever of 101 or Higher, Uncontrolled pain Home Medications: Medications to take at Discharge Aspirin 325 mg PO DAILY 06/03/17 Niacin [Niacin ER] 500 mg PO DAILY 06/03/17 Ramipril [Altace] 2.5 mg PO DAILY 06/03/17 blood sugar diagnostic strips See Dose Instructions .ROUTE .MEDSUPPLY #50 ea 06/09/17 blood-glucose meter See Dose Instructions .ROUTE .MEDSUPPLY #1 ea 06/09/17 easy touch test strips #100 ea 07/09/17 lancets 30 gauge See Dose Instructions .ROUTE .MEDSUPPLY #100 ea 07/14/17 blood pressure monitor kit See Dose Instructions .ROUTE .MEDSUPPLY #1 ea 08/06/17 atorvastatin 40 mg tablet 20 mg PO QHS tab 10/15/17 metformin 1,000 mg tablet 1,000 mg PO BID #180 tab 10/15/17 tadalafil 20 mg tablet 20 mg PO QDAY PRN #6 tab 10/15/17 Acetaminophen [Tylenol Tablet] 650 mg PO Q6H PRN PRN 10 Days #30 tab 12/15/17 Ciprofloxacin [Cipro] 500 mg PO BID 6 Days #12 tab 12/15/17 Metronidazole 500 mg PO BID 6 Days #12 tab 12/15/17 Following Prescrptions Were Given to Patient: Acetaminophen [Tylenol Tablet] 650 mg PO Q6H PRN PRN 10 Days #30 tab PRN Reason: Mild Pain (scale 0-3)/T>100.7 Ciprofloxacin [Cipro] 500 mg PO BID 6 Days #12 tab Metronidazole 500 mg PO BID 6 Days #12 tab Primary Care Physician: Orlando Claire MD [Primary Care Provider] - Please follow up with your Primary Care Physician in: in 1 to 2 week Please Follow Up With: Juan M Espinoza DPM When: within one to 2 weeks Please Follow Up With: Orlando Claire MD Disposition: Home Minutes spent on discharge:: 20 Patient Condition:: Good Medical Necessity - Tobacco Use Smoking Status: Former smoker Tobacco Use: Non-smoker Meaningful Use Info Meaningful Use Diagnoses (Choose all that apply): None applicable Code Visit Inpatient E&M: 39269 Disch Hosp
--- NOTE | 2017-12-15 17:11 | DS.PCM_ITS ---
Discharge Date and Diagnosis Date of Admission: 12/14/17 Date of Discharge: 12/15/17 - Secondary Discharge Diagnosis Chronic Problems (This Medical Record has been edited. Action required.) Diabetes mellitus type 2 in nonobese (Chronic) GERD (gastroesophageal reflux disease) (Chronic) Type 2 diabetes mellitus (Chronic) Erectile dysfunction (Chronic) Valvular heart disease (Chronic) Bicuspid aortic valve, mitral valve prolapse Hyperlipemia, mixed (Chronic) Essential (primary) hypertension (Chronic) Hx of tonsillectomy (Chronic) Atherosclerosis of [place] coronary artery of [place] heart without angina pectoris (Chronic) DYSON to LAD, Radial artery to high LCX, IVETT composite graft to lateral LCX ; Overweight (BMI 25.0-29.9) (Chronic) History of tobacco use (Chronic) S/P CABG x 2 (Chronic ~04/07/05) Bicuspid aortic valve (Chronic) MVP (mitral valve prolapse) (Chronic) Hospital Course and Treatment Imaging Results: Impressions Foot X-Ray 12/14/17 20:50 IMPRESSION: Normal x-ray examination of the foot. There are no radiodense foreign bodies noted. Electronically Signed: Eyal Casarez MD at 21:32 EDT , Service support , 12/14/17 20:50 Xray Foot [Foot min 3 Views] [RAD] Stat Laboratory Results 12/14/17 12/14/17 12/14/17 Range/Units 19:13 19:13 19:13 WBC 6.5 (4.4-11.0) K/mm3 RBC 4.78 (4.6-6.2) M/mm3 Hgb 15.2 (13.0-16.5) g/dl Hct 45.5 (40-54) % MCV 95.2 H (80-94) fL MCH 31.8 (27.0-32.0) pg MCHC 33.4 (32-36) g/gl RDW 12.4 (11.6-14.6) % RDW Differential 42.7 (35.1-43.9) fl Plt Count 238 (150-450) K/mm3 MPV 9.5 (6.2-12.0) fl Immature Gran % (Auto) 0.200 (0.0-0.9) % Neut % (Auto) 58.9 (47-70) % Lymph % (Auto) 25.7 (19-41) % [place] % (Auto) 10.3 H (0-10) % Eos % (Auto) 4.3 (0-5) % Baso % (Auto) 0.6 (0-1) % Absolute Neuts (auto) 3.8 (2.0-7.7) X10^3/uL Absolute Lymphs (auto) 1.67 (0.83-4.51) X10^3/ul Total Counted Not Reportable ESR 3 (0-20) mm/hr PT 13.3 (11.7-14.9) SECONDS INR 1.0 APTT 30.4 (24.1-36.2) Seconds Sodium 138 (136-145) mmol/L Potassium 4.3 (3.5-5.1) mmol/L Chloride 102 (98-107) mmol/L Carbon Dioxide 29.0 (21.0-32.0) mmol/L Anion Gap 7 (5-15) BUN 26 H (7-18) mg/dL Creatinine 1.05 (0.70-1.30) mg/dL Estim Creat Clear Calc 81.55 ml/min Est GFR (MDRD) Af Amer 91 (>60) mL/min Est GFR (MDRD) Non-Af 75 (>60) mL/min BUN/Creatinine Ratio 24.8 H (10-20) RATIO Glucose 153 H (74-106) mg/dL Hemoglobin A1c (4.2-6.3) % Calcium 8.8 (8.5-10.1) mg/dL C-React Prot High Sens 4.08 H ( - 3.00) mg/L POC Glucose (70-110) mg/dL 12/14/17 12/15/17 12/15/17 Range/Units 22:09 05:05 05:05 WBC 5.6 (4.4-11.0) K/mm3 RBC 4.68 (4.6-6.2) M/mm3 Hgb 15.2 (13.0-16.5) g/dl Hct 44.3 (40-54) % MCV 94.7 H (80-94) fL MCH 32.5 H (27.0-32.0) pg MCHC 34.3 (32-36) g/gl RDW 12.1 (11.6-14.6) % RDW Differential 41.4 (35.1-43.9) fl Plt Count 228 (150-450) K/mm3 MPV 9.8 (6.2-12.0) fl Immature Gran % (Auto) 0.400 (0.0-0.9) % Neut % (Auto) 55.1 (47-70) % Lymph % (Auto) 26.9 (19-41) % [place] % (Auto) 11.9 H (0-10) % Eos % (Auto) 5.0 (0-5) % Baso % (Auto) 0.7 (0-1) % Absolute Neuts (auto) 3.1 (2.0-7.7) X10^3/uL Absolute Lymphs (auto) 1.51 (0.83-4.51) X10^3/ul Total Counted Not Reportable ESR (0-20) mm/hr PT (11.7-14.9) SECONDS INR APTT (24.1-36.2) Seconds Sodium 141 (136-145) mmol/L Potassium 4.1 (3.5-5.1) mmol/L Chloride 107 (98-107) mmol/L Carbon Dioxide 26.0 (21.0-32.0) mmol/L Anion Gap 8 (5-15) BUN 22 H (7-18) mg/dL Creatinine 0.93 (0.70-1.30) mg/dL Estim Creat Clear Calc 92.07 ml/min Est GFR (MDRD) Af Amer 105 (>60) mL/min Est GFR (MDRD) Non-Af 87 (>60) mL/min BUN/Creatinine Ratio 23.7 H (10-20) RATIO Glucose 145 H (74-106) mg/dL Hemoglobin A1c (4.2-6.3) % Calcium 8.5 (8.5-10.1) mg/dL C-React Prot High Sens ( - 3.00) mg/L POC Glucose 100 (70-110) mg/dL 12/15/17 12/15/17 12/15/17 Range/Units 05:05 07:05 11:21 WBC (4.4-11.0) K/mm3 RBC (4.6-6.2) M/mm3 Hgb (13.0-16.5) g/dl Hct (40-54) % MCV (80-94) fL MCH (27.0-32.0) pg MCHC (32-36) g/gl RDW (11.6-14.6) % RDW Differential (35.1-43.9) fl Plt Count (150-450) K/mm3 MPV (6.2-12.0) fl Immature Gran % (Auto) (0.0-0.9) % Neut % (Auto) (47-70) % Lymph % (Auto) (19-41) % [place] % (Auto) (0-10) % Eos % (Auto) (0-5) % Baso % (Auto) (0-1) % Absolute Neuts (auto) (2.0-7.7) X10^3/uL Absolute Lymphs (auto) (0.83-4.51) X10^3/ul Total Counted ESR (0-20) mm/hr PT (11.7-14.9) SECONDS INR APTT (24.1-36.2) Seconds Sodium (136-145) mmol/L Potassium (3.5-5.1) mmol/L Chloride (98-107) mmol/L Carbon Dioxide (21.0-32.0) mmol/L Anion Gap (5-15) BUN (7-18) mg/dL Creatinine (0.70-1.30) mg/dL Estim Creat Clear Calc ml/min Est GFR (MDRD) Af Amer (>60) mL/min Est GFR (MDRD) Non-Af (>60) mL/min BUN/Creatinine Ratio (10-20) RATIO Glucose (74-106) mg/dL Hemoglobin A1c 6.4 H (4.2-6.3) % Calcium (8.5-10.1) mg/dL C-React Prot High Sens ( - 3.00) mg/L POC Glucose 146 H 193 H (70-110) mg/dL Podiatry Operations: None Procedures: - - Incision and drainage Summary of Care Provided: The patient is a 67 year old M with a significant history of diabetes, CABG, bicuspid aortic valve and mitral valve prolapse who was admitted because of a puncture wound of the plantar side of his right foot with associated cellulitis. In the emergency department patient was treated with vancomycin and Zosyn; and he had a tetanus shot. In patients patient was treated with IV ceftriaxone and IV Flagyl. Podiatry was consulted. Podiatry did incision and drainage of the puncture wound. The patient noticed a dramatic improvements of the pain and swelling of his right foot. A shared decision was made to discharge patient home on oral antibiotics. Oral ciprofloxacin and oral metronidazole was prescribed. Patient was instructed to return to the emergency department if his pain increases [] Discharge Diet: Carb Control Diet Discharge Activity: Return to Normal Activity - When your pain is controlled. Call your doctor if your incision/area has: Foul Smelling Discharge Call your doctor if you observe: Fever of 101 or Higher, Uncontrolled pain Home Medications: Medications to take at Discharge Aspirin 325 mg PO DAILY 06/03/17 Niacin [Niacin ER] 500 mg PO DAILY 06/03/17 Ramipril [Altace] 2.5 mg PO DAILY 06/03/17 blood sugar diagnostic strips See Dose Instructions .ROUTE .MEDSUPPLY #50 ea blood-glucose meter See Dose Instructions .ROUTE .MEDSUPPLY #1 ea 06/09/17 easy touch test strips #100 ea 07/09/17 lancets 30 gauge See Dose Instructions .ROUTE .MEDSUPPLY #100 ea 07/14/17 blood pressure monitor kit See Dose Instructions .ROUTE .MEDSUPPLY #1 ea atorvastatin 40 mg tablet 20 mg PO QHS tab 10/15/17 metformin 1,000 mg tablet 1,000 mg PO BID #180 tab 10/15/17 tadalafil 20 mg tablet 20 mg PO QDAY PRN #6 tab 10/15/17 Acetaminophen [Tylenol Tablet] 650 mg PO Q6H PRN PRN 10 Days #30 tab 12/15/17 Ciprofloxacin [Cipro] 500 mg PO BID 6 Days #12 tab 12/15/17 Metronidazole 500 mg PO BID 6 Days #12 tab 12/15/17 Following Prescrptions Were Given to Patient: Acetaminophen [Tylenol Tablet] 650 mg PO Q6H PRN PRN 10 Days #30 tab PRN Reason: Mild Pain (scale 0-3)/T>100.7 Ciprofloxacin [Cipro] 500 mg PO BID 6 Days #12 tab Metronidazole 500 mg PO BID 6 Days #12 tab Primary Care Physician: Orlando Claire MD [Primary Care Provider] - Please follow up with your Primary Care Physician in: in 1 to 2 week Please Follow Up With: Juan M Espinoza DPM When: within one to 2 weeks Please Follow Up With: Orlando Claire MD Disposition: Home Minutes spent on discharge:: 20 Patient Condition:: Good Medical Necessity - Tobacco Use Smoking Status: Former smoker Tobacco Use: Non-smoker Meaningful Use Info Meaningful Use Diagnoses (Choose all that apply): None applicable Code Visit Inpatient E&M: 44236 Disch Hosp
== END 2017-12-15 11:47 | disposition home or self-care (01) ==
LOC: ED 22:26 → PCU 23:06
PROVIDERS: Admitting Provider Internal Medicine; Emergency Provider Emergency Medicine; Family Provider Internal Medicine; PCP Internal Medicine; Visit Provider Hospitalist
DX: L03.115 Cellulitis of right lower limb (principal); S91.331A Puncture wound without foreign body, right foot, initial encounter; E11.9 Type 2 diabetes mellitus without complications; I10 Essential (primary) hypertension; E78.5 Hyperlipidemia, unspecified; K21.9 Gastro-esophageal reflux disease without esophagitis; I34.1 Nonrheumatic mitral (valve) prolapse; I25.10 Atherosclerotic heart disease of native coronary artery without angina pectoris; Q23.1 Congenital insufficiency of aortic valve; E78.00 Pure hypercholesterolemia, unspecified; Z23 Encounter for immunization; Z95.1 Presence of aortocoronary bypass graft; Z79.82 Long term (current) use of aspirin; Z79.84 Long term (current) use of oral hypoglycemic drugs; Z79.899 Other long term (current) drug therapy; W26.8XXA Contact with other sharp object(s), not elsewhere classified, initial encounter; Y93.01 Activity, walking, marching and hiking; Y92.007 Garden or yard of unspecified non-institutional (private) residence as the place of occurrence of the external cause; Y99.8 Other external cause status
CPT/HCPCS: 36415; 73630; 80048; 82962; 83036; 85025; 85610; 85652; 85730; 86141; 87040; 90715; 96361; 96365; 96366; 96367; 99218; 99282; J7030; J7040; J7050; A4216; G0378

== ENCOUNTER → 2018-03-24 07:20 | Outpatient (CLI) | payer OTHER, SELFPAY ==
[2018-03-24 08:40] LABS: Microalbumin,Random Urine 11.5 mg/L (NO RANGE EST.); Microalbumin:Creatinine Ratio 9.6 mg/g CRE (<30 mg/g CRE)
[2018-03-24 08:51] LABS: AST(SGOT) 16 U/L (15-37); Alanine Aminotransfer ALT/SGPT 34 U/L (16-61); Albumin, Serum 3.9 g/dL (3.2-5.0); Alkaline Phosphatase 59 U/L (45-117); Bilirubin, Direct 0.11 mg/dL (0.00-0.30); Cholesterol 129 mg/dL (200); Globulin 3.9 g/dL (2.2-4.2); High Density Lipoprotein 35 mg/dL; PSA,Total - Annual Screen 1.01 ng/mL (0.00-4.00); Protein, Total 7.8 g/dL (6.4-8.2); Thyroid Stim Hormone (TSH) 2.55 uIU/mL (0.358-3.74); Triglycerides 107 mg/dL; Very Low Density Lipoprotein 21 mg/dL (5-40)
[2018-03-24 10:58] LABS: Hemoglobin A1c 6.6 % (4.2-6.3)
== END ==
PROVIDERS: Family Provider Internal Medicine; PCP Internal Medicine; Referring Provider Nurse Practitioner Family; Visit Provider Nurse Practitioner Family
DX: E11.9 Type 2 diabetes mellitus without complications (principal); E78.2 Mixed hyperlipidemia; E66.3 Overweight; Z12.5 Encounter for screening for malignant neoplasm of prostate
CPT/HCPCS: 36415; 80061; 80076; 82043; 82570; 83036; 84153; 84443; G0103

== ENCOUNTER → 2018-09-22 08:56 | Outpatient (CLI) | payer OTHER, SELFPAY ==
[2018-09-21 09:06] VITALS: BMI 29.7
[2018-09-22 09:41] LABS: AST(SGOT) 21 U/L (15-37); Alanine Aminotransfer ALT/SGPT 35 U/L (16-61); Albumin, Serum 3.8 g/dL (3.2-5.0); Alkaline Phosphatase 51 U/L (45-117); Bilirubin, Direct 0.17 mg/dL (0.00-0.30); Cholesterol 113 mg/dL (200); Globulin 3.4 g/dL (2.2-4.2); High Density Lipoprotein 39 mg/dL; Protein, Total 7.2 g/dL (6.4-8.2); Triglycerides 52 mg/dL; Very Low Density Lipoprotein 10 mg/dL (5-40)
== END ==
PROVIDERS: Family Provider Internal Medicine; PCP Internal Medicine; Referring Provider Nurse Practitioner Family; Visit Provider Nurse Practitioner Family
DX: E78.5 Hyperlipidemia, unspecified (principal); Z79.899 Other long term (current) drug therapy
CPT/HCPCS: 36415; 80061; 80076

== ENCOUNTER → 2018-12-28 06:31 | Outpatient (CLI) | payer OTHER, SELFPAY ==
[2018-09-26 08:53] VITALS: BMI 29.2
[2018-12-28 08:54] LABS: AST(SGOT) 17 U/L (15-37); Alanine Aminotransfer ALT/SGPT 29 U/L (16-61); Alkaline Phosphatase 53 U/L (45-117); Bilirubin, Direct 0.15 mg/dL (0.00-0.30); Cholesterol 118 mg/dL (200); Globulin 3.3 g/dL (2.2-4.2); High Density Lipoprotein 39 mg/dL; Protein, Total 7.3 g/dL (6.4-8.2); Triglycerides 69 mg/dL; Very Low Density Lipoprotein 14 mg/dL (5-40)
== END ==
PROVIDERS: Family Provider Internal Medicine; PCP Internal Medicine; Referring Provider Nurse Practitioner Family; Visit Provider Nurse Practitioner Family
DX: E78.2 Mixed hyperlipidemia (principal); I25.10 Atherosclerotic heart disease of native coronary artery without angina pectoris
CPT/HCPCS: 36415; 80061; 80076

== ENCOUNTER → 2019-04-14 09:45 | Outpatient (CLI) | payer OTHER, SELFPAY ==
[2019-03-29 09:15] VITALS: BMI 29.2
--- NOTE | 2019-04-14 09:47 | ART_ITS ---
Reason For Study: DIMINISHED PEDAL PULSES Procedure A bilateral lower extremity continuous wave Doppler with analog waveform analysis and ankle brachial indexes. Left Segmental Pressures Left brachial= 137mmHg. Left posterior tibial artery = 182mmHg. Left dorsalis pedis artery = 175mmHg. The left dorsalis pedis waveforms are triphasic. The left posterior tibial artery waveforms are triphasic. ABSENT toe waveform bilaterally. Right Segmental Pressures Right brachial= 143mmHg. Right posterior tibial artery = 185mmHg. Right dorsalis pedis artery = 170mmHg. The right dorsalis pedis waveforms are triphasic. The right posterior tibial artery waveforms are triphasic. Indices The right ankle brachial index by the dorsalis pedis is 1.22. The right ankle brachial index by the posterior tibial artery is 1.27. The left ankle brachial index by the dorsalis pedis is 1.19. The left ankle brachial index by the posterior tibial artery is 1.29. Interpretation Summary Triphasic Doppler waveforms are noted at ankle level bilaterally. Resting ankle-brachial indices are normal bilaterally. Arterial flow could not be detected at digital level bilaterally. Arterial flow appears to be normal at ankle level bilaterally. Arterial flow could not be demonstrated at digital level bilaterally, suggesting severe, distal, small-vessel arterial occlusive disease at digital level bilaterally. Ordering Physician: Sid Nye Referring Physician: Sid Nye Performed By: SHAMAR MCKEON RDCS
== END ==
PROVIDERS: Family Provider Nurse Practitioner Family; PCP Nurse Practitioner Family; Referring Provider Nurse Practitioner Family; Visit Provider Nurse Practitioner Family
DX: R09.89 Other specified symptoms and signs involving the circulatory and respiratory systems (principal)
CPT/HCPCS: 93922

== ENCOUNTER → 2019-05-22 08:02 | Outpatient (CLI) | payer OTHER, SELFPAY ==
[2019-05-08 08:14] VITALS: BMI 29.4
--- NOTE | 2019-05-22 08:04 | ECHOCS_ITS ---
Reason For Study: MURMUR Procedure This was a 2D Doppler, Color Flow transthoracic echocardiogram. The study was technically difficult. Contrast injection was performed. Exam performed in department. Left Ventricle Normal LV size. Left ventricular systolic function is normal. The estimated ejection fraction is 60 %. No evidence for diastolic dysfunction. No regional wall motion abnormalities noted. Right Ventricle Normal RV size. Normal systolic function. Atria Normal left atrium. Normal right atrium. No doppler evidence for ASD. Mitral Valve There is mild to moderate mitral annular calcification. Extension of the mitral annular calcification onto the posterior mitral valve leaflet. Mild diffuse mitral valve thickening. Trivial mitral valve insufficiency. Tricuspid Valve Normal tricuspid valve. Mild tricuspid valve insufficiency. Right ventricular systolic pressure estimated to be 26 mmHg. Aortic Valve Bicuspid aortic valve. Moderate to severe focal aortic valve calcification. Mild aortic stenosis. Trivial aortic valve insufficiency. Pulmonic Valve The pulmonic valve is not well visualized. Mild (1+) pulmonic valve insufficiency. Great Vessels The aortic root is not well visualized. Pericardium/Pleural No pericardial effusion. Medication 22 gauge I.V. with prn adaptor inserted into right arm. Diluted definity 4.0ml given slow IV push to enhance endocardial definition. MMode/2D Measurements & Calculations LVIDd: 4.3 cm IVSd: 1.2 cm LVOT diam: 2.4 cm LVIDs: 3.1 cm LVPWd: 1.2 cm RVDd: 4.2 cm FS: 28.2 % LVOT area: 4.5 cm2 LAV(MOD-bp): 56.7 ml LVAd ap4: 40.6 cm2 SV(MOD-sp4): 86.9 ml LAV(MOD-bp) Indexed: 24.8 ml/m2 EDV(MOD-sp4): 139.4 ml LAV(MOD-sp2): 57.9 ml EDV(sp4-el): 148.0 ml LAV(MOD-sp4): 57.5 ml LVAs ap4: 22.6 cm2 ESV(MOD-sp4): 52.5 ml ESV(sp4-el): 54.3 ml EF(MOD-sp4): 62.3 % EF(sp4-el): 63.3 % SV(sp4-el): 93.7 ml LA A4 area: 20.3 cm2 LA dimension(2D): 3.9 cm RA A4 area: 15.1 cm2 Time Measurements MV dec time: 0.18 sec Doppler Measurements & Calculations MV E max dhaval: 72.6 cm/sec Lat Peak E' Dhaval: 7.9 cm/sec Med Peak E' Dhaval: 6.3 cm/sec MV A max dhaval: 70.2 cm/sec E/E' lat: 9.1 E/E' med: 11.6 MV E/A: 1.0 Ao V2 max: 203.4 cm/sec LV V1 max: 76.4 cm/sec SV(LVOT): 73.5 ml Ao max P.6 mmHg LV V1 max P.3 mmHg Ao V2 mean: 149.8 cm/sec LV V1 mean P.3 mmHg Ao mean P.9 mmHg LV V1 mean: 53.8 cm/sec Ao V2 VTI: 42.9 cm LV V1 VTI: 16.3 cm PERRI(I,D): 1.7 cm2 PERRI(V,D): 1.7 cm2 TR max dhaval: 239.7 cm/sec TR max P.0 mmHg Interpretation Summary The study was technically difficult. Contrast injection was performed. Left ventricular systolic function is normal. The estimated ejection fraction is 60 %. There is mild to moderate mitral annular calcification. Extension of the mitral annular calcification onto the posterior mitral valve leaflet. Mild diffuse mitral valve thickening. Trivial mitral valve insufficiency. Mild tricuspid valve insufficiency. Bicuspid aortic valve. Moderate to severe focal aortic valve calcification. Mild aortic stenosis. Trivial aortic valve insufficiency. Mild (1+) pulmonic valve insufficiency. Right ventricular systolic pressure estimated to be 26 mmHg. No evidence for diastolic dysfunction. Ordering Physician: Nikos Márquez Referring Physician: EYAL WHARTON Performed By: Val White, MINACS, RVT
== END ==
PROVIDERS: Family Provider Nurse Practitioner Family; PCP Nurse Practitioner Family; Referring Provider Internal Medicine Cardiovascular Disease; Visit Provider Internal Medicine Cardiovascular Disease
DX: R01.1 Cardiac murmur, unspecified (principal); I38 Endocarditis, valve unspecified
CPT/HCPCS: 93306; Q9957; A4216; C8929

== ENCOUNTER → 2019-05-23 08:24 | Outpatient (CLI) | payer OTHER, SELFPAY ==
[2019-05-08 08:14] VITALS: BMI 29.4
[2019-05-23 12:21] LABS: Anion Gap 6 (5-15); BUN 16 mg/dL (7-18); BUN/Creat Ratio 14.4 RATIO (10-20); Calcium,Total 9.5 mg/dL (8.5-10.1); Chloride 100 mmol/L (98-107); Creatinine, Serum 1.11 mg/dL (0.70-1.30); EST Glomerular Filtration Rate 70 mL/min (>60); Est Glom Filt Rate - Afr Amer 85 mL/min (>60); Glucose 179 mg/dL (74-106); Sodium Level 136 mmol/L (136-145)
== END ==
PROVIDERS: Family Provider Nurse Practitioner Family; PCP Nurse Practitioner Family; Visit Provider Nurse Practitioner Family
DX: I10 Essential (primary) hypertension (principal)
CPT/HCPCS: 36415; 80048

== ENCOUNTER → 2019-05-31 11:22 | Outpatient (CLI) | payer OTHER, SELFPAY ==
[2019-05-31 11:11] VITALS: BMI 28.2
--- NOTE | 2019-05-31 11:22 | RAD_ITS ---
STUDY: X-RAY - PELVIS AND LEFT HIP REASON FOR EXAM: Male, 68 years old. Left hip pain TECHNIQUE: 3 views of the pelvis and hip. COMPARISON: None. FINDINGS: There is a non-specific bowel gas pattern. Normal visualized soft tissue structures. Normal bilateral iliac wings, sacroiliac joints and visualized sacrum. Normal bilateral superior and inferior pubic rami. Normal pubic symphysis. Normal bilateral ischial tuberosities. Normal visualized femoral head. Normal acetabulum. Normal hip joint. RAD/HIP, UNI W/ Pelvis 2-3 Views IMPRESSION: Normal x-ray examination of the pelvis and hip. Electronically Signed: Jovanni Lee DO at 23:17 EST Tel [phone], Service support ,
--- NOTE | 2019-05-31 11:22 | RAD_ITS ---
STUDY: X-RAY - LUMBOSACRAL SPINE REASON FOR EXAM: Male, 68 years old. Left hip pain x2 years. TECHNIQUE: 7 view(s) of the lumbosacral spine were obtained. COMPARISON: None FINDINGS: Normal lumbar lordosis. There is no substantial scoliosis. There is normal alignment of the vertebrae. No subluxation following lateral flexion and extension positioning. Schmorl''s nodes in the anterior vertebral endplates at T12-L1, L1-L2 and L2-L3 disc space levels. No acute fractures. Moderate disc space height narrowing at L1-L2, L2-L3 and L5-S1 disc space levels. Normal bilateral sacral ala, sacroiliac joints, and visualized sacrum. Vascular calcifications along the abdominal aorta increases at the aortoiliac bifurcation and in both common iliac arteries. RAD/L/S Spine Comp/w Bending Views IMPRESSION: 1. No acute fracture or malalignment of the lumbar spine. 2. Moderate disc space height narrowing at L1-L2, L2-L3 and L5-S1 disc space levels. 3. No subluxation of the lumbar spine in the lateral flexion and extension views. Electronically Signed: José Miguel Nguyen MD at 13:16 EST , Service support ,
== END ==
PROVIDERS: Family Provider Nurse Practitioner Family; PCP Nurse Practitioner Family; Referring Provider Orthopaedic Surgery; Visit Provider Orthopaedic Surgery
DX: M54.5 Low back pain (principal); M25.552 Pain in left hip
CPT/HCPCS: 72114; 73502

== ENCOUNTER 2019-06-20 08:00 | Outpatient (RCR) | payer OTHER, SELFPAY ==
[2019-05-31 11:11] VITALS: BMI 28.2
--- NOTE | 2019-06-02 08:08 | HP.PTEVAL ---
Patient's Visit Information POLI LUCAS is a 68 year old M referred to Physical Therapy by Sav Block DO with a diagnosis of L hip OA. Date of Evaluation: 06/02/19 Physical Therapist: Eyal Loya PT, ATC - Visit Plan Frequency: 2-3x /Week Duration: 4 Weeks Plan: L hip strengthening and stretching, balance and proprio, core strengthening, nustep, and HEP - Subjective Findings: Pt reports he has had L hip pain for over one year. Pt reports he has been pain meds which have made a big difference. Pt reports his pain is located on the medial aspect of his L hip. Pt reports he fell about one year ago which may have been what caused his pain, but he isnt sure this is what caused his pain. Pt reports he had xrays on his L hip which revealed bone spurs throughout. Pt reports occasional sleep difficulty secondary to pain. Pt reports walking and car transfers were very difficult until he started taking the pain meds he is on now. No popping/clicking/locking up in his L hip. Pt reports he has had LBP for a chronic period of time. 2/10 pain at rest, 12/10 pain at worst. - Pain L hip Pain Intensity (Out of 10): 2 Pain Intensity Range: 10 - Objective Neuro: B LE sensation is WNL to light touch. B patellar reflex= 2/3. Palpation: No pain on the lateral aspect of L hip. No obvious deformity. ROM: Minimal limitation with hip adduction and flexion. MMT: L hip strength is grossly 4/5 throughout. R hip strength is 5/5 throughout. Special tests: Pos darion and quadrant test - Goals Goal 1:: Decrease L hip pain x 50% to aid with sleep Goal Time Frame: 4-6 Weeks Goal 2:: Increase L LE strength x 1 grade to aid with IADL's Goal Time Frame: 4-6 Weeks Goal 3:: I with HEP Goal Time Frame: 4-6 Weeks - Rehabilitation Potential Physical Therapy Diagnosis: L hip pain, weakness, and limited ROM secondary to L hip OA Rehabilitation Potential: Good - Anticipated Interventions Patient/Client Instruction: Educate patient on: Condition, Plan of Care For the Purpose of:: To improve self management Therapeutic Exercise to Include: Strength training, Endurance training, Balance training, Flexibilty training, Dynamic Lumbar Stabilization For the Purpose of:: To decrease pain, To increase ROM, To improve muscle performance and motor function Thank you for the opportunity to evaluate your patient. For Medicare and Medicare HMO plans, please review the plan of care and approve it. It will need to be FAXED BACK to us at [phone] for Medicare purposes. For Medicare only, by signing this I certify the plan of care. Please let me know if there are questions or concerns regarding this plan of care. Physician Signature: Date:
--- NOTE | 2019-06-20 08:20 | HP.PTDCSUM ---
HP - PT D/C Summary It has been my pleasure to treat POLI LUCAS under orders from Sav Block DO, for the diagnosis of L hip OA for a total of 3 visit(s). Discharge Date: Please see the following information for a summary of their discharge status. - Subjective Subjective: This isnt helping at all. I am going to just go and get the surgery done. - Pain L hip Pain Intensity (Out of 10): 7 - Overall Improvement % Improvement: 0 - Objective Objective/Function: L hip pain 7/10. Pt feels as though PT has made no significant improvements at this time. - Goals Goal 1:: Decrease L hip pain x 50% to aid with sleep Goal Progress: Not Progressing Goal 2:: Increase L LE strength x 1 grade to aid with IADL's Goal Progress: Not Progressing Goal 3:: I with HEP Goal Progress: Goal Met - Plan Plan: Discontinue, RTD. - D/C Information If there are questions or concerns regarding this patient's physical therapy, please feel free to call me at [phone]. Thank you for the referral of this patient. Sincerely, Eyal Loya, PT, ATC
--- NOTE | 2019-06-21 08:24 | RAD_ITS ---
STUDY: X-RAY - PELVIS REASON FOR EXAM: Male, 68 years old. PRE OP with measuring ball per order, left hip pain TECHNIQUE: One view of the pelvis was obtained. COMPARISON: None. FINDINGS: There is a non-specific bowel gas pattern. Normal visualized soft tissue structures. Normal bilateral iliac wings, sacroiliac joints and visualized sacrum. Normal visualized bilateral superior and inferior pubic rami. Normal pubic symphysis. Normal ischial tuberosities. There are osteoarthritic changes of the right femoral head with marginal osteophyte formation. There is osteoarthritic spur formation of the right acetabular rim. There is mild articular joint space narrowing of the right hip. There are osteoarthritic changes of the left femoral head with marginal osteophyte formation. There is osteoarthritic spur formation of the left acetabular rim. There is moderate articular joint space narrowing of the left hip. RAD/Pelvis 1 or 2 Views IMPRESSION: Left worse than right osteoarthrosis. Electronically Signed: Cralos Karimi MD (Brooks) at 12:10 EST , Service support ,
== END 2019-06-20 19:00 | disposition home or self-care (01) ==
LOC: PT 08:00
PROVIDERS: Family Provider Nurse Practitioner Family; PCP Nurse Practitioner Family; Referring Provider Orthopaedic Surgery; Visit Provider Orthopaedic Surgery
DX: M16.12 Unilateral primary osteoarthritis, left hip (principal); M51.36 Other intervertebral disc degeneration, lumbar region; M76.12 Psoas tendinitis, left hip
CPT/HCPCS: 72170; 97110; 97161; 97530

== ENCOUNTER → 2019-06-21 08:27 | Outpatient (CLI) | payer OTHER, SELFPAY ==
[2019-06-21 07:58] VITALS: BMI 28.2
== END ==
PROVIDERS: Family Provider Nurse Practitioner Family; PCP Nurse Practitioner Family; Referring Provider Orthopaedic Surgery; Visit Provider Orthopaedic Surgery
DX: Z00.00 Encounter for general adult medical examination without abnormal findings (principal)

== ENCOUNTER → 2019-06-30 07:50 | Outpatient (CLI) | payer OTHER, SELFPAY ==
[2019-06-21 07:58] VITALS: BMI 28.2
[2019-06-29 14:14] VITALS: BMI 28.3
--- NOTE | 2019-06-30 07:50 | CT_ITS ---
Exam: CT of the pelvis and hips. HISTORY: Left hip pain. FINDINGS: TECHNIQUE: Transaxial CT of the hip, knee were obtained. Coronal and sagittal reconstruction images of the knee were provided. Individualized dose optimization techniques were used for this CT. COMPARISON: Radiographs 06/21/2019 FINDINGS: Standard protocol for the preoperative planning for the MakoPlasty robotic knee surgery was performed. There is mild symmetric osteoarthrosis of both hips. No significant degenerative changes of the knees. Normal femoral shafts. Normal pelvic bones. Grossly normal soft tissues. CT/Extremity Lower without Contra IMPRESSION: Preoperative MakoPlasty Robotic knee surgical CT evaluation with findings as described above. Electronically Signed: León Coughlin MD at 17:14 EST , Service support ,
== END ==
PROVIDERS: Family Provider Nurse Practitioner Family; PCP Nurse Practitioner Family; Referring Provider Orthopaedic Surgery; Visit Provider Orthopaedic Surgery
DX: M16.12 Unilateral primary osteoarthritis, left hip (principal)
CPT/HCPCS: 73700

== ENCOUNTER 2019-07-13 09:56 | Observation (INO) | payer OTHER, MEDICARE, SELFPAY ==
[2019-06-21 07:58] VITALS: BMI 28.2
[2019-06-29 14:14] VITALS: BP 142/80; PULSE 89; RESP 16; TEMP 36.6; O2SAT 97; BMI 28.3
--- NOTE | 2019-06-29 14:42 | SDCEKG_ITS ---
Test Reason : Blood Pressure : / mmHG Vent. Rate : 085 BPM Atrial Rate : 085 BPM P-R Int : 246 ms QRS Dur : 092 ms QT Int : 354 ms P-R-T Axes : 058 071 052 degrees QTc Int : 421 ms Sinus rhythm with 1st degree A-V block Otherwise normal ECG Confirmed by MALCOLM CAMPO, BRITTNEY ([id number]), editor school photograph EILEEN ISLAS ([id number]) on 07/03/2019 12:10:58 PM Referred By: Sav Block Confirmed By:BRITTNEY FOWLER MD
[2019-06-29 15:10] LABS: Hematocrit 48.1 % (40-54); Hemoglobin 16.3 g/dL (13.0-16.5); Mean Corp Hgb Conc 33.9 g/dL (32-36); Mean Corpuscular Hgb 31.4 pg (27.0-32.0); Mean Corpuscular Volume 92.7 fL (80-94); Mean Platelet Vol. 9.5 fl (6.2-12.0); Platelet Count 315 K/mm3 (150-450); RBC Distribution Width CV 11.6 % (11.6-14.6); RBC Distribution Width SD 39.5 fl (35.1-43.9); Red Blood Count 5.19 M/mm3 (4.6-6.2); White Blood Count 6.8 K/mm3 (4.4-11.0)
[2019-06-29 17:25] LABS: Hemoglobin A1c 6.7 % (4.2-6.3)
[2019-07-13] VITALS (16 sets, daily range): BP systolic 99–150; BP diastolic 55–78; PULSE 53–103; RESP 16–96; TEMP 36–36.7; O2SAT 92–100; BMI 28.3; BMI 31.4
[2019-07-13] MEDS: Acetaminophen 500 MG Tablet 1000 MG PO ×3 (06:04→22:51)
[2019-07-13] MEDS: Gabapentin 600 MG Tablet PO (06:04)
[2019-07-13] MEDS: Celecoxib 200 MG Capsule 400 MG PO (06:05)
[2019-07-13] MEDS: Scopolamine 1mg/72hr Patch 1 PATCH TRANSDERM. (06:06)
[2019-07-13] MEDS: Magnesium Sulfate 4gm/100mL 4 GM/100 ML IV.SOLN. IV (06:12)
[2019-07-13] MEDS: Lactated Ringers 1,000 ML 100 ML IV ×3 (06:14→10:01)
[2019-07-13] MEDS: Insulin Lispro 100 UNIT/ML INSULN.PEN SC ×3 (06:53→22:51)
[2019-07-13 06:56] LABS: Bedside Glucose 269 mg/dL (70-110)
[2019-07-13] MEDS: Cefazolin 2 GM in 0.9% Normal Saline 100 ML IV ×2 (07:27→22:58)
--- NOTE | 2019-07-13 07:33 | HP.PCM_ITS ---
History and Physical Date of Admission: 07/13/19 Intake Intake Visit Reasons: LEFT HIP Is patient in pain?: Yes Allergies No Known Allergies Allergy (Verified 06/21/19 08:29) [facility] Social History (Updated 06/21/19 @ 11:12 by Sav Block DO) Smoking Status: Former smoker how long ago did patient quit smokin years ago alcohol intake: current alcohol intake frequency: a few times a week Alcohol type: beer, wine substance use type: does not use caffeine: Yes Type: coffee Number of servings: 2 what type of physical activity do you participate in: none seatbelt use: always do you feel safe at home: Yes HPI LEFT HIP: Details: Parts of this documentation were recorded by a scribe, this documentation accurately reflects the service provided and the decisions made by me, Sav Block DO 06/21/19 0758. POLI LUCAS is a 68 year old M here today for continued left hip pain. Patient states that his pain is over his anterior hip and thigh, deep into his groin. Patient complains of pain into his knee. He has increased pain with standing and walking. He complains of a catching into his hip. He tried aquatic therapy and land therapy which is not helpful. Denies numbness, tingling or other associated symptoms. ROS Musc Reports joint pain, Reports limited joint movement, Reports stiffness Ortho Exam Left Hip Skin/Wound: Yes CDI, No Ecchymosis, No soft tissue swelling, No Erythema Hip: Absent eccymosis, soft tissue swelling, erythema or TTP Greater Troch HIP: ER 80 degrees with groin pain. 0 degrees IR with groin pain. groin pain with adduction. good ankle strength. Supplemental Info 06/21/2019 x-ray left hip: moderate DJD Assessment & Plan Problems 1. Primary osteoarthritis of left hip M16.12 Plan Spoke with the patient about the hip replacement surgery and hip precautions for 3 months to prevent a dislocation. Risks, benefits and alternatives of surgery reviewed including risk of bleeding, infection, nerve, artery and/or tissue damage continued pain or symptoms and expected post-operative course, leg length discrepancy dislocation fracture continued pain. He will need physical therapy following surgery. discussed use of robotics and pin sites Ordered a CT scan for preop planning with liz. Follow up for his 2 week post op appointment or sooner if pain, swelling, numbness or associated symptoms, or concerns develop. All questions answered. Patient in agreement of plan. Orders Orders: Pelvis 1 or 2 Views Today M16.12, M76.12 Extremity Lower without Contra Today M16.12 Coding Level of Care Code Off vis,est,level 3 Diagnoses Primary osteoarthritis of left hip M16.12 ??Osteoarthritis type: primary I have re-examined the patient. There are no clinical changes since date of exam
[2019-07-13] MEDS: dexAMETHasone 10 MG/ML Vial IV (07:39)
--- NOTE | 2019-07-13 09:57 | RAD_ITS ---
STUDY: X-RAY - PELVIS AND LEFT HIP REASON FOR EXAM: Male, 68 years old. POST OP TECHNIQUE: 2 views of the pelvis and hip. COMPARISON: Comparison is made with prior study of June 21, 2019. FINDINGS: The patient is status post left total hip replacement. There is good alignment. Postoperative soft tissue changes. RAD/Hip Min 2 Views (Portable) IMPRESSION: Status post total hip replacement. There is good alignment. Postoperative soft tissue changes. Electronically Signed: Cristopher Fox, at 12:36 EST , Service support ,
--- NOTE | 2019-07-13 10:03 | PCM.OPRPT ---
Report of Operation Date of Procedure: 07/13/19 Description of Surgical Findings:: Preoperative diagnosis: DJD left hip Postoperative diagnosis: Same Procedure: CT-guided Tim plasty assisted left total hip arthroplasty Implants: Essie Accolade II stem size 5, 127 degree neck angle +7.5 neck length 54 mm cup with 30 mm cancellous screw 36 mm ceramic head Anesthesia: General EBL: 650 cc Complications: None Condition: Stable to PACU Indication for procedure: This is a 68-year-old male who has had long-standing arthrosis of the hip who has failed conservative treatment and wished to undergo total hip arthroplasty. We did discuss operative versus nonoperative intervention including risks of bleeding, infection , nerve artery tissue damage, need for further surgery, fracture, leg length discrepancy dislocation blood clot and need for postoperative physical therapy and postoperative expectations. An informed consent was signed. Procedure: Patient was met in the preoperative holding area once again the operative extremity was identified by both patient and physician and was marked. Patient was met by anesthesia general anesthesia was started. patient was then positioned in the lateral decubitus position on a well-padded pegboard with an axillary roll. All bony prominences were checked and padded. The patient was prepped and draped in the usual sterile fashion. A timeout was called to ensure the proper patient procedure and extremity were being contemplated. Anatomic landmarks were palpated and marked for a standard posterior lateral approach. Prior to this the ASIS was palpated and 3 fingerbreadths proximal to this 3 pins were placed at a 45 degree angle into the iliac crest with good purchase stab incisions were made into the skin prior to placement. The Tim plasty array was then secured. A 10 blade scalpel was used to make a posterior incision through the skin and subcutaneous tissue. In retractors were used and electrocautery was used to maintain meticulous hemostasis and dissect full-thickness flaps until the gluteal fascia was reached. The gluteal fascia was incised in line with the gluteal fibers. The bursal tissue was then freed from the underside and a Charnley retractor was placed. The femoral trochanteric checkpoint was placed in leg length was assessed using the trochanteric checkpoint and an EKG lead that was placed on the knee prior to prepping the leg .the fat pad was then elevated off of the external rotators with electrocautery and the external rotators were dissected off of the greater trochanter including the piriformis and were tagged with #1 Ethibond for later repair. The joint capsule opened with posterior trapdoor technique. The hip was surgically dislocated. The measurement on the preoperative CT from the top of the lesser trochanter to the femoral neck cut was marked Hohmann was placed around the lesser trochanter. A neck cutting guide was used to cameron the neck with a Bovie and an oscillating saw was used complete the femoral neck cut. The femoral head was then removed and sized. We then turned our attention to the acetabulum. A Bovie was used to make a perforation in the anterior joint capsule and a Zhou retractor was placed this was repeated in the 6 o'clock position a wide marizol was placed there. With a long handled knife the labral and pulvinar tissue were removed. We then registered the acetabulum with the pointing array and confirmed our landmarks. Also placed a checkpoint in the superior acetabulum and a Steinmann pin was also placed in this location to aid in retraction. Once the socket was thoroughly prepared and labral tissue pulmonary was removed we single reamed with the robotic arm. We then used the robotic arm to position the acetabular implant and impacted it into place under robotic guidance. We then proceeded to place a posterior superior screw by drilling first measuring and inserting the screw. We then inserted a trial liner. And turned our attention back to the femur at this point a femoral elevator was used. As well as a pointed wide Hohmann around the lesser trochanter and a Hohmann to help retract the gluteus medius. A box chisel was used to remove excess lateral neck followed by a canal finder and a lateralizing reamer. This was followed by sequential broaches. Attention was made of the version within the canal based on preoperative templating. Once the final broach was seated we then trialed reduced the hip it was determined that a 127 degree neck angle with a 7.5 neck length was the appropriate size. We then checked stability with shuck testing as well as flexion and internal rotation. then proceeded with hip extension and checked leg lengths at the knees and heels as well as with the trochanteric checkpoint and knee EKG lead. At this point trials were removed. A liner was inserted to the cup. The femoral stem was inserted. We re-trialed and then proceeded to impact the femoral head onto the Ba taper. We then surgically reduce the hip check stability again and leg lengths and were satisfied. Betadine rinse was allowed to sit for 5 minutes while everyone changed their gloves. Thorough irrigation was performed. Followed by closure of the external rotators with #2 FiberWire followed by closure of gluteal fascia with #1 Ethibond. 0 Vicryl fat stitches and 2-0 Vicryl subcutaneous stitches and eric in the skin. A pulls were placed in the pin sites over the iliac crest with Xeroform 4 x 4 and OpSite. dressing was applied to incisional area with Mepilex Ag and an abduction pillow was placed. Patient tolerated the procedure well there was no intraoperative complications all counts were correct and the patient was brought back to the PACU in stable condition
[2019-07-13] MEDS: Lactated Ringers 1,000 ML 125 ML IV ×2 (11:50→18:50)
[2019-07-13 12:25] LABS: Bedside Glucose 211 mg/dL (70-110)
[2019-07-13] MEDS: Cefazolin 1 GM/50 ML BAG IV (14:48)
--- NOTE | 2019-07-13 16:56 | PN_ITS ---
Subjective: Patient seen and examined. Underwent left total hip arthroplasty by Dr. Block today. Patient reports significant postoperative pain however now improved. Denies other current symptoms or complaints. - Physical Exam Vitals/I&O's: Vital Signs Temp Pulse Resp BP Pulse Ox 98.1 F 91 16 111/71 98 07/13/19 15:42 07/13/19 15:42 07/13/19 15:42 07/13/19 15:42 07/13/19 15:42 Oxygen Flow Rate (L/min) 2 Oxygen Delivery Method Nasal Cannula Weight: 238 lb 5.115 oz Body Mass Index (BMI) 31.4 Finger Stick Blood Glucose 211 Intake and Output for Last 24 Hours 07/11/19 07/12/19 07/13/19 23:59 23:59 23:59 Intake Total 3380 / 3380 Balance 3380 / 3380 General: Alert, Oriented x3, Cooperative HEENT: Atraumatic, PERRLA, EOMI, Normocephalic Neck: Supple, No JVD, Negative Carotid Bruits Lungs: Clear to auscultation, Normal air movement Cardiovascular: Regular rate, Regular Rhythm, Normal S1, No murmurs Abdomen: Bowel Sounds Present, Soft, Non Tender Extremities: No clubbing, No cyanosis Skin: No rashes, No breakdown, - - Left hip postop dressing intact. Musculoskeletal: No Tenderness to Palpation of Joints or Extremities, - - Left hip postoperative tenderness Neurological: Cranial nerves II-XII grossly intact Psych/Mental Status: Normal Affect, Appropriate Laboratory Results 07/13/19 05:47: POC Glucose 269 H 07/13/19 11:58: POC Glucose 211 H Current Medications Acetaminophen (Tylenol) 1,000 mg PO Q8 [facility] Last Admin: 07/13/19 14:47 Dose: 1,000 mg Documented by: Apixaban (Eliquis) 2.5 mg PO BID [facility] Hydromorphone HCl (Dilaudid Inj) 0.5 mg IV Q2H PRN PRN PRN Reason: Pain Score 6-10/10 Lactated Ringer's () 1,000 mls @ 100 mls/hr IV .Q10H [facility] Last Infusion: 07/13/19 11:48 Dose: Infused Documented by: Cefazolin Sodium () 1 gm in 50 mls @ 100 mls/hr IV Q8H [facility] Stop: 07/14/19 07:29 Last Infusion: 07/13/19 16:36 Dose: Infused Documented by: Ketorolac Tromethamine (Toradol) 15 mg IV Q6H PRN PRN PRN Reason: Pain Score 1-5/10 Ondansetron HCl (Zofran) 4 mg IV Q6H PRN PRN PRN Reason: NAUSEA Oxycodone HCl (Oxyir) 5 - 10 mg PO Q4H PRN PRN PRN Reason: Pain Score 4-10/10 Senna/Docusate Sodium (Senokot-S, Cecilia-Colace) 2 tablet PO BID [facility] Last Admin: 07/13/19 14:08 Dose: Not Given Documented by: Sodium Chloride () 10 - 40 ml IV UD PRN PRN Reason: SALINE FLUSH Medical Necessity - Tobacco Use Smoking Status: Former smoker Assessment/Plan All Active Problems (Last Reviewed 05/01/19 @ 09:01 by Kate Hatfield) Nonrheumatic mitral (valve) prolapse (Acute) Epigastric pain (Resolved) 1. Status post total left hip arthroplasty-postop day 0. Management per ortho. Pain currently well controlled. 2. CAD with history of CABG-continue aspirin, statin, ramipril. Follows with Dr. Márquez. 3. Valvular heart disease-bicuspid aortic valve, mitral valve prolapse. Recent echo stable. 4. Hyperlipidemia-continue statin. 5. Hypertension-stable, continue ramipril, HCTZ regimen. 6. Type 2 diabetes mellitus-hold metformin regimen. Accu-Cheks with sliding scale insulin. Recent hemoglobin A1c 6.7%. 7. GERD-continue PPI. Previously took as needed at home, recommend daily use while on Eliquis. DVT prophylaxis-Eliquis This patient was seen by PENNY Dominguez under the supervision of Dr. Yip.
[2019-07-13 22:51] LABS: Bedside Glucose 227 mg/dL (70-110)
[2019-07-13] MEDS: Atorvastatin Calcium 40 MG Tablet PO (22:52)
[2019-07-13] MEDS: Senna/Docusate Sodium 1 Tablet 2 TABLET PO (22:52)
[2019-07-14 05:23] VITALS: BP 116/73; PULSE 100; RESP 18; TEMP 36.7; O2SAT 98
[2019-07-14] MEDS: Acetaminophen 500 MG Tablet 1000 MG PO ×2 (05:39→13:42)
[2019-07-14] MEDS: Ketorolac 15 MG/ML Vial IV (05:51)
[2019-07-14] MEDS: 0.9% Saline Lock 10 ML Syringe IV ×3 (05:52→09:42)
[2019-07-14 06:50] LABS: Hematocrit 38.5 % (40-54); Hemoglobin 13.1 g/dL (13.0-16.5); Mean Corpuscular Hgb 31.9 pg (27.0-32.0); Mean Corpuscular Volume 93.7 fL (80-94); Mean Platelet Vol. 9.4 fl (6.2-12.0); Platelet Count 279 K/mm3 (150-450); RBC Distribution Width CV 11.8 % (11.6-14.6); RBC Distribution Width SD 40.6 fl (35.1-43.9); Red Blood Count 4.11 M/mm3 (4.6-6.2); White Blood Count 9.8 K/mm3 (4.4-11.0)
[2019-07-14] MEDS: APIXABAN 2.5 MG TABLET PO (06:50)
[2019-07-14 06:51] LABS: Scan Indicated on CBC? Y/N NO
[2019-07-14 07:05] LABS: Bedside Glucose 139 mg/dL (70-110)
[2019-07-14 07:12] LABS: Anion Gap 5 (5-15); BUN 18 mg/dL (7-18); Calcium,Total 8.5 mg/dL (8.5-10.1); Chloride 108 mmol/L (98-107); Creatinine, Serum 1.06 mg/dL (0.70-1.30); EST Glomerular Filtration Rate 74 mL/min (>60); Est Glom Filt Rate - Afr Amer 90 mL/min (>60); Estimated Creatinine Clearance 77.47 ml/min; Glucose 132 mg/dL (74-106); Magnesium 2.4 mg/dL (1.6-2.6); Potassium 4.2 mmol/L (3.5-5.1); Sodium Level 140 mmol/L (136-145)
[2019-07-14] MEDS: Senna/Docusate Sodium 1 Tablet 2 TABLET PO (07:46)
[2019-07-14] MEDS: Cefazolin 2 GM in 0.9% Normal Saline 100 ML IV (07:47)
[2019-07-14] MEDS: hydroCHLOROthiazide 12.5mg 12.5 MG PO (07:47)
[2019-07-14] MEDS: Aspirin E.C. 81 MG Tablet PO (07:47)
--- NOTE | 2019-07-14 07:57 | PCM.DC.ORTHO ---
Discharge Diet: 2200 Calorie Control Diet Weight Bearing Status: Weight bearing as tolerated Keep extremity elevated above heart level: Operative Extremity Call your doctor if you observe: Shortness of breath, Chest pain Additional Instructions: Begin daily showering warm water antibacterial soap postop day #3( 72hrs Post-operatively) and then daily. Leave the dressing on for 72 hours postoperatively then may remove prior to first shower and change dressing daily after this until no drainage for 2 consecutive days then may leave open to air. Follow hip precautions as reviewed by hospital physical therapist. Wear compression stockings, may remove at night. Start physical therapy as directed in hospital. Call with any concerns Allergies/Adverse Reactions: Allergies No Known Allergies Allergy (Verified 07/13/19 05:53) Medications to take at Discharge omeprazole 40 mg capsule,delayed release 40 mg PO DAILY PRN cap 09/26/18 aspirin 81 mg tablet,delayed release 81 mg PO DAILY 12/28/18 ramipril 10 mg capsule 10 mg PO DAILY #90 cap 02/13/19 tadalafil 20 mg tablet 20 mg PO QDAY PRN #18 tab 06/01/19 atorvastatin 40 mg tablet 40 mg PO QHS #90 tab 06/02/19 Hydrochlorothiazide 12.5 mg PO DAILY 06/29/19 metFORMIN HCl [Glucophage] 1,000 mg PO BID 06/29/19 Acetaminophen [Tylenol] 1,000 mg PO Q6H PRN #100 tab 07/14/19 Apixaban [Eliquis] 2.5 mg PO BID #42 tab 07/14/19 Oxycodone [Oxyir] 5 - 10 mg PO Q4H PRN PRN #15 tab 07/14/19 The following prescriptions were given: Apixaban [Eliquis] 2.5 mg PO BID #42 tab Transmission Status: Sent to [facility] Oxycodone [Oxyir] 5 - 10 mg PO Q4H PRN PRN #15 tab PRN Reason: Pain Score 4-10/10 Transmission Status: Sent to [facility] Acetaminophen [Tylenol] 1,000 mg PO Q6H PRN #100 tab Transmission Status: Sent to [facility] Primary Care Physician: Sid Nye NP-C [Primary Care Provider] - Test Results: Test results from this visit will be discussed in further detail at your follow-up appointment, if applicable. Please Follow Up With: Sav Block DO - 2 weeks
--- NOTE | 2019-07-14 09:09 | PCM.DC.SUM ---
Discharge Date and Diagnosis Date of Admission: 07/13/19 Date of Discharge: 07/14/19 - Secondary Discharge Diagnosis Chronic Problems (Last Reviewed 05/01/19 @ 09:01 by Kate Hatfield) History of coronary artery bypass surgery (Chronic ~04/07/05) DYSON to LAD, Radial artery to high LCX, IVETT composite graft to lateral LCX 04/07/2005; GERD (gastroesophageal reflux disease) (Chronic) Type 2 diabetes mellitus (Chronic) Valvular heart disease (Chronic) Bicuspid aortic valve, mitral valve prolapse Hyperlipemia, mixed (Chronic) Essential (primary) hypertension (Chronic) Atherosclerosis of habematolel coronary artery of habematolel heart without angina pectoris (Chronic) DYSON to LAD, Radial artery to high LCX, IVETT composite graft to lateral LCX 04/07/2005; Overweight (BMI 25.0-29.9) (Chronic) Bicuspid aortic valve (Chronic) Hospital Course and Treatment Operations: None Summary of Care Provided: The patient is a 68 year old M patient with long-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 Patient underwent Tim plasty assisted total hip arthroplasty day of admission. Patient did receive pre-and postoperative antibiotics which were discontinued within 23 hours postoperatively. Patient did receive general anesthesia and postoperatively her pain was controlled with both IV and p.o. pain medication. Patient did receive 2 g of tranexamic acid. hemoglobin and hematocrit were monitored postoperatively as well as her vital signs and patient did not require any blood transfusion. . Dressing will be changed daily beginning postop day #3 before shower will be removed and replaced after. Pt was started on Eliquis 2.5 mg twice daily postop day #1 for which will continue for 3 weeks post hospital discharge . Patient was seen by physical therapy was ambulating the halls well. patient will be discharged home with out patient physical therapy will follow-up in the office in 2 weeks. - Physical Exam Vitals/I&O's: Vital Signs Temp Pulse Resp BP Pulse Ox 98.1 F 100 18 116/73 98 07/14/19 05:23 07/14/19 05:23 07/14/19 05:23 07/14/19 05:23 07/14/19 05:23 Oxygen Flow Rate (L/min) 2 Oxygen Delivery Method Room Air Weight: 238 lb 5.115 oz Body Mass Index (BMI) 31.4 Finger Stick Blood Glucose 211 Intake and Output for Last 24 Hours 07/12/19 07/13/19 07/14/19 23:59 23:59 23:59 Intake Total 5633.75 / 6533.75 1399 Balance 5633.75 / 6533.75 1399 General: Alert, Oriented x3, Cooperative, No apparent distress Extremities: - - Dressings clean dry and intact compartment soft neurovascular intact EHL tibialis anterior gastrocsoleus intact sensation to light touch palpable pedal pulses. Laboratory Results 07/13/19 11:58: POC Glucose 211 H 07/13/19 22:44: POC Glucose 227 H 07/14/19 06:37: WBC 9.8, RBC 4.11 L, Hgb 13.1, Hct 38.5 L, MCV 93.7, MCH 31.9, MCHC 34.0, RDW Std Deviation 40.6, RDW Coeff of Libra 11.8, Plt Count 279, MPV 9.4 07/14/19 06:37: Sodium 140, Potassium 4.2, Chloride 108 H, Carbon Dioxide 27.0, Anion Gap 5, BUN 18, Creatinine 1.06, Estim Creat Clear Calc 77.47, Est GFR (MDRD) Af Amer 90, Est GFR (MDRD) Non-Af 74, BUN/Creatinine Ratio 17.0, Glucose 132 H, Calcium 8.5, Magnesium 2.4 07/14/19 06:48: POC Glucose 139 H Current Medications Acetaminophen (Tylenol) 1,000 mg PO Q8 [facility] Last Admin: 07/14/19 05:39 Dose: 1,000 mg Documented by: Apixaban (Eliquis) 2.5 mg PO BID [facility] Last Admin: 07/14/19 06:50 Dose: 2.5 mg Documented by: Aspirin (Ecotrin) 81 mg PO DAILYCM [facility] Last Admin: 07/14/19 07:47 Dose: 81 mg Documented by: Atorvastatin Calcium (Lipitor) 40 mg PO QHS [facility] Last Admin: 07/13/19 22:52 Dose: 40 mg Documented by: Hydrochlorothiazide () 12.5 mg PO DAILY [facility] Last Admin: 07/14/19 07:47 Dose: 12.5 mg Documented by: Hydromorphone HCl (Dilaudid Inj) 0.5 mg IV Q2H PRN PRN PRN Reason: Pain Score 6-10/10 Lactated Ringer's () 1,000 mls @ 125 mls/hr IV .Q8H [facility] Last Admin: 07/14/19 05:58 Dose: Not Given Documented by: Insulin Human Lispro (Humalog Kwikpen (Bkc)) 0 unit SC ACHS [facility]; Protocol Last Admin: 07/14/19 06:49 Dose: Not Given Documented by: Ketorolac Tromethamine (Toradol) 15 mg IV Q6H PRN PRN PRN Reason: Pain Score 1-5/10 Last Admin: 07/14/19 05:51 Dose: 15 mg Documented by: Ondansetron HCl (Zofran) 4 mg IV Q6H PRN PRN PRN Reason: NAUSEA Oxycodone HCl (Oxyir) 5 - 10 mg PO Q4H PRN PRN PRN Reason: Pain Score 4-10/10 Pantoprazole Sodium (Protonix) 40 mg PO DAILY PRN PRN Reason: REFLUX Ramipril (Altace) 10 mg PO DAILY [facility] Senna/Docusate Sodium (Senokot-S, Cecilia-Colace) 2 tablet PO BID [facility] Last Admin: 07/14/19 07:46 Dose: 2 tablet Documented by: Sodium Chloride () 10 - 40 ml IV UD PRN PRN Reason: SALINE FLUSH Last Admin: 07/14/19 07:47 Dose: 10 ml Documented by: Discharge Diet: 2200 Calorie Control Diet Weight Bearing Status: Weight bearing as tolerated Keep extremity elevated above heart level: Operative Extremity Call your doctor if you observe: Shortness of breath, Chest pain Home Medications: Medications to take at Discharge omeprazole 40 mg capsule,delayed release 40 mg PO DAILY PRN cap 09/26/18 aspirin 81 mg tablet,delayed release 81 mg PO DAILY 12/28/18 ramipril 10 mg capsule 10 mg PO DAILY #90 cap 02/13/19 tadalafil 20 mg tablet 20 mg PO QDAY PRN #18 tab 06/01/19 atorvastatin 40 mg tablet 40 mg PO QHS #90 tab 06/02/19 Hydrochlorothiazide 12.5 mg PO DAILY 06/29/19 metFORMIN HCl [Glucophage] 1,000 mg PO BID 06/29/19 Acetaminophen [Tylenol] 1,000 mg PO Q6H PRN #100 tab 07/14/19 Apixaban [Eliquis] 2.5 mg PO BID #42 tab 07/14/19 Oxycodone [Oxyir] 5 - 10 mg PO Q4H PRN PRN #15 tab 07/14/19 Following Prescrptions Were Given to Patient: Apixaban [Eliquis] 2.5 mg PO BID #42 tab Transmission Status: Received by [facility] Oxycodone [Oxyir] 5 - 10 mg PO Q4H PRN PRN #15 tab PRN Reason: Pain Score 4-10/10 Transmission Status: Received by [facility] Acetaminophen [Tylenol] 1,000 mg PO Q6H PRN #100 tab Transmission Status: Received by [facility] Primary Care Physician: Sid Nye NP-C [Primary Care Provider] - Please Follow Up With: Sav Block DO - 2 weeks Additional Instructions: Begin daily showering warm water antibacterial soap postop day #3( 72hrs Post-operatively) and then daily. Leave the dressing on for 72 hours postoperatively then may remove prior to first shower and change dressing daily after this until no drainage for 2 consecutive days then may leave open to air. Follow hip precautions as reviewed by hospital physical therapist. Wear compression stockings, may remove at night. Start physical therapy as directed in hospital. Call with any concerns Medical Necessity - Tobacco Use Smoking Status: Former smoker Meaningful Use Info Meaningful Use Diagnoses (Choose all that apply): None applicable
[2019-07-14 09:51] LABS: Bedside Glucose 157 mg/dL (70-110)
--- NOTE | 2019-07-14 09:51 | PN_ITS ---
Reason for Visit: Left total hip arthroplasty Objective: Seen and examined. Patient had left total hip arthroplasty. Blood pressure is stable. Left hip pain is much better. Patient is walking around nursing station under the supervision of physical therapist. Vitals/I&O's: Vital Signs Temp Pulse Resp BP Pulse Ox 98.1 F 100 18 116/73 98 07/14/19 05:23 07/14/19 05:23 07/14/19 05:23 07/14/19 05:23 07/14/19 05:23 Oxygen Flow Rate (L/min) 2 Oxygen Delivery Method Room Air Weight: 238 lb 5.115 oz Body Mass Index (BMI) 31.4 Finger Stick Blood Glucose 211 Intake and Output for Last 24 Hours 07/12/19 07/13/19 07/14/19 23:59 23:59 23:59 Intake Total 5633.75 / 6533.75 1510 / 1510 Balance 5633.75 / 6533.75 1510 / 1510 General: Alert, Oriented x3, Cooperative HEENT: Atraumatic, PERRLA, EOMI, Normocephalic Neck: Supple, No JVD, Negative Carotid Bruits Lungs: Clear to auscultation, Normal air movement, No rhonchi, No wheeze, No rales Cardiovascular: Regular rate, Regular Rhythm, Normal S1, Normal S2, No murmurs Abdomen: Bowel Sounds Present, Soft, Non Tender, Non-Distended Extremities: No edema, Capillary Refill Less than 3 Seconds Skin: No rashes, No breakdown Musculoskeletal: Arthritic Changes, Tenderness - Left hip postoperative mild tenderness. Dressing is dry. Lymphatic: No Cervical, Supraclavicular, or Inguinal Adenopathy Neurological: Cranial nerves II-XII grossly intact, Deep Tendon Reflexes 2+/4 and Symmetrical, Neuro grossly intact Psych/Mental Status: Normal Affect, Appropriate Laboratory Results 07/13/19 11:58: POC Glucose 211 H 07/13/19 22:44: POC Glucose 227 H 07/14/19 06:37: WBC 9.8, RBC 4.11 L, Hgb 13.1, Hct 38.5 L, MCV 93.7, MCH 31.9, MCHC 34.0, RDW Std Deviation 40.6, RDW Coeff of Libra 11.8, Plt Count 279, MPV 9.4 07/14/19 06:37: Sodium 140, Potassium 4.2, Chloride 108 H, Carbon Dioxide 27.0, Anion Gap 5, BUN 18, Creatinine 1.06, Estim Creat Clear Calc 77.47, Est GFR (MDRD) Af Amer 90, Est GFR (MDRD) Non-Af 74, BUN/Creatinine Ratio 17.0, Glucose 132 H, Calcium 8.5, Magnesium 2.4 07/14/19 06:48: POC Glucose 139 H 07/14/19 09:45: POC Glucose 157 H Current Medications Acetaminophen (Tylenol) 1,000 mg PO Q8 [facility] Last Admin: 07/14/19 05:39 Dose: 1,000 mg Documented by: Apixaban (Eliquis) 2.5 mg PO BID [facility] Last Admin: 07/14/19 06:50 Dose: 2.5 mg Documented by: Aspirin (Ecotrin) 81 mg PO DAILYCM [facility] Last Admin: 07/14/19 07:47 Dose: 81 mg Documented by: Atorvastatin Calcium (Lipitor) 40 mg PO QHS [facility] Last Admin: 07/13/19 22:52 Dose: 40 mg Documented by: Hydrochlorothiazide () 12.5 mg PO DAILY [facility] Last Admin: 07/14/19 07:47 Dose: 12.5 mg Documented by: Hydromorphone HCl (Dilaudid Inj) 0.5 mg IV Q2H PRN PRN PRN Reason: Pain Score 6-10/10 Lactated Ringer's () 1,000 mls @ 125 mls/hr IV .Q8H [facility] Last Admin: 07/14/19 05:58 Dose: Not Given Documented by: Insulin Human Lispro (Humalog Kwikpen (Bkc)) 0 unit SC [facility]; Protocol Last Admin: 07/14/19 06:49 Dose: Not Given Documented by: Ketorolac Tromethamine (Toradol) 15 mg IV Q6H PRN PRN PRN Reason: Pain Score 1-5/10 Last Admin: 07/14/19 05:51 Dose: 15 mg Documented by: Ondansetron HCl (Zofran) 4 mg IV Q6H PRN PRN PRN Reason: NAUSEA Oxycodone HCl (Oxyir) 5 - 10 mg PO Q4H PRN PRN PRN Reason: Pain Score 4-10/10 Pantoprazole Sodium (Protonix) 40 mg PO DAILY PRN PRN Reason: REFLUX Ramipril (Altace) 10 mg PO DAILY [facility] Senna/Docusate Sodium (Senokot-S, Cecilia-Colace) 2 tablet PO BID [facility] Last Admin: 07/14/19 07:46 Dose: 2 tablet Documented by: Sodium Chloride () 10 - 40 ml IV UD PRN PRN Reason: SALINE FLUSH Last Admin: 07/14/19 09:42 Dose: 10 ml Documented by: Medical Necessity - Tobacco Use Smoking Status: Former smoker Assessment/Plan All Active Problems (Last Reviewed 05/01/19 @ 09:01 by Kate Hatfield) Nonrheumatic mitral (valve) prolapse (Acute) Epigastric pain (Resolved) This is a 68-year-old gentleman with history of diabetes mellitus type 2 was admitted for elective left hip total arthroplasty. Patient also has bicuspid aortic valve. 1. Status post total left hip arthroplasty-postop day 1, on 07/13/2019. Pain is much better controlled. Patient is walking around the nursing station. Plan is for discharge today 2. CAD with history of CABG-continue aspirin, statin, ramipril. Follows with Dr. Márquez. 3. Valvular heart disease-bicuspid aortic valve, mitral valve prolapse. Patient had echo in May 2019 reported as EF 60% with moderate to severe focal aortic valve calcification, bicuspid aortic valve with mild . RVSP 26 mmHg. 4. Hyperlipidemia-continue statin. 5. Hypertension-normotensive continue ramipril, HCTZ regimen. 6. Type 2 diabetes mellitus-hold metformin regimen. Accu-Cheks with sliding scale insulin. Recent hemoglobin A1c 6.7%. Continue home medication metformin 7. GERD-continue PPI. Previously took as needed at home, recommend daily use while on Eliquis. Patient is being discharged by orthopedic surgeon. Code Visit Inpatient E&M: 82366 Subs Hosp L2
--- NOTE | 2019-07-14 09:52 | CASEMGMT ---
STEPHAN CANTRELL Face to Face with patient for initial transition planning/care coordination assessment. RN CM introduced self and role at [facility]. Patient sitting in chair, alert and oriented, at bedside. Patient willing to participate in assessment and is able to answer all questions appropriately. Care providers, pharmacy, and demographics verified. Patient wishes to discharge home and is setup with outpatient therapy at [facility]. Patient states he has no further needs or concerns at this time. CM to follow for discharge planning needs that may arise. PCP: Alethea Specialists: dagmar Block; Willi, harness worker Preferred Pharmacy: [facility] Insurance: MMO Prescription Benefit: yes Living Will/HPOA: yes, [employer] LNOK: Living Arrangements: Patient lives with in 3 story home with bedroom on 2nd floor with railing. Patient independent at home prior to surgery. Transportation: DME/HHC: Patient has walker, cane, and raised toilet seat. Patient is setup with [facility] for Monday 07/17 for outpatient therapy. Disposition Plan: Patient to discharge home with outpatient therapy, family support, and follow-up plans in place. Gwendolyn WILSON, RN, CM
[2019-07-14 10:32] VITALS: BP 122/65; PULSE 103; RESP 18; TEMP 36.8; O2SAT 96
[2019-07-14] MEDS: Ramipril 10 MG Capsule PO (10:34)
[2019-07-14] MEDS: Insulin Lispro 100 UNIT/ML INSULN.PEN SC (11:55)
[2019-07-14 12:00] LABS: Bedside Glucose 197 mg/dL (70-110)
[2019-07-14] MEDS: oxyCODONE 5 MG Tablet PO (12:57)
== END 2019-07-14 07:51 | disposition home or self-care (01) ==
LOC: MS3 07-14 07:03
PROVIDERS: Anesthesiology; Admitting Provider Orthopaedic Surgery; Family Provider Nurse Practitioner Family; PCP Nurse Practitioner Family; Referring Provider Orthopaedic Surgery; Visit Provider Orthopaedic Surgery
PROC: 8E0Y0CZ Robotic Assisted Procedure of Lower Extremity, Open Approach (ICD-10-PCS; CPT 27130; principal; 2019-07-13 07:00)
DX: M16.12 Unilateral primary osteoarthritis, left hip (principal); K21.9 Gastro-esophageal reflux disease without esophagitis; I25.10 Atherosclerotic heart disease of native coronary artery without angina pectoris; I10 Essential (primary) hypertension; I44.0 Atrioventricular block, first degree; Q23.1 Congenital insufficiency of aortic valve; E78.5 Hyperlipidemia, unspecified; E66.9 Obesity, unspecified; E11.9 Type 2 diabetes mellitus without complications; Z79.899 Other long term (current) drug therapy; Z79.82 Long term (current) use of aspirin; Z79.84 Long term (current) use of oral hypoglycemic drugs; Z95.1 Presence of aortocoronary bypass graft; Z87.891 Personal history of nicotine dependence; Z68.31 Body mass index [BMI] 31.0-31.9, adult; Z71.3 Dietary counseling and surveillance
CPT/HCPCS: 01214; 27130; 36415; 73502; 80048; 82962; 83036; 83735; 85027; 87081; 93005; 96361; 96365; 96366; 96375; 97110; 97161; 97166; 97530; 97535; 97802; 99218; 99251; C1713; C1776; J7120; A4216; G0378; G0379; G0463; J2405

== ENCOUNTER 2019-09-01 09:30 | Outpatient (RCR) | payer OTHER, SELFPAY ==
[2019-06-21 07:58] VITALS: BMI 28.2
[2019-07-13 13:42] VITALS: BMI 31.4
--- NOTE | 2019-07-17 10:36 | HP.PTEVAL ---
Patient's Visit Information POLI LUCAS is a 68 year old M referred to Physical Therapy by Sav Block DO with a diagnosis of L WHITLEY. Date of Evaluation: 07/17/19 Physical Therapist: Eyal Loya PT, ATC - Visit Plan Frequency: 2-3x /Week Duration: 4-6 Weeks Plan: L LE strengthening, balance and proprio, core stab ex's, nustep, and HEP - Subjective Findings: DOS: 07/13/19. Pt had a L WHITLEY secondary to a chronic Hx of L hip pain. Pt reports his pain is much better than prior to having surgery. Pt reports he is mostly sore over the incision at this time. No tingling or numbness in L LE at this time. Pt reports no sleep difficulty as long as he is taking pain meds. Pt had stair training at the hospital but must go up the stairs one step at a time. Pt reports he is I with all transfers at this time. Pt reports he is to follow up with his surgeon on the . 2/10 pain at this time as he is mostly stiff. - Pain L WHITLEY Pain Intensity (Out of 10): 2 Pain Intensity Range: 2 - Objective Neuro: B LE sensation is WNL to light touch. B patellar tendon reflex= 2/3. ROM: B LE's are WFL following WHITLEY precautions. MMT: R LE is 5/5 throughout. L LE is grossly 4-/5 and painful with testing. Gait: Pt is able to ambulate 680 feet until having to rest secondary to weakness in L LE - Goals Goal 1:: Decrease L hip pain x 50% to aid with sleep Goal Time Frame: 4-6 Weeks Goal 2:: Increase L hip strength x 1 grade to aid with stair negotiation Goal Time Frame: 4-6 Weeks Goal 3:: Pt will be able to ambulate with LRD 1000' feet to aid with community ambulation Goal Time Frame: 4-6 Weeks Goal 4:: I with HEP Goal Time Frame: 4-6 Weeks - Rehabilitation Potential Physical Therapy Diagnosis: Pt has L hip pain, weakness, and decreased tolerance for ambulation secondary to L WHITLEY Rehabilitation Potential: Good - Anticipated Interventions Patient/Client Instruction: Educate patient on: Condition, Plan of Care For the Purpose of:: To improve self management Therapeutic Exercise to Include: Strength training, Endurance training, Balance training, Gait and locomotor training, Dynamic Lumbar Stabilization For the Purpose of:: To decrease pain, To improve muscle performance and motor function, To increase tolerance to activity/condition/position Cryotherapy (ice pack, ice massage): Yes For the Purpose of:: To decrease pain Thank you for the opportunity to evaluate your patient. For Medicare and Medicare HMO plans, please review the plan of care and approve it. It will need to be FAXED BACK to us at [phone] for Medicare purposes. For Medicare only, by signing this I certify the plan of care. Please let me know if there are questions or concerns regarding this plan of care. Physician Signature: Date:
--- NOTE | 2019-08-07 10:05 | HP.PTREVAL ---
Sav Block, DO, It has been my pleasure to treat POLI LUCAS over the last 10 visits for L WHITLEY. Please see the progress note below for an update on the physical therapy plan of care! Subjective: No pain at this time. Very sore yesterday. Objective/Function: L hip pain 0/10, increases to 5/10 at worst. L LE MMT 4+/5. L LE WFL with ROM. Pt is progressing well toward Rx goals Plan Plan: Cont with POC Goals Goal 1:: Decrease L hip pain x 50% to aid with sleep Goal Time Frame: 4-6 Weeks Goal Progress: Goal Met Goal 2:: Increase L hip strength x 1 grade to aid with stair negotiation Goal Time Frame: 4-6 Weeks Goal Progress: Progressing Goal 3:: Pt will be able to ambulate with LRD 1000' feet to aid with community ambulation Goal Time Frame: 4-6 Weeks Goal Progress: Progressing Goal 4:: I with HEP Goal Time Frame: 4-6 Weeks Goal Progress: Progressing Anticipated Interventions Patient/Client Instruction: Educate patient on: Condition, Plan of Care For the Purpose of:: To improve self management Therapeutic Exercise to Include: Strength training, Endurance training, Balance training, Gait and locomotor training, Dynamic Lumbar Stabilization For the Purpose of:: To decrease pain, To improve muscle performance and motor function, To increase tolerance to activity/condition/position Cryotherapy (ice pack, ice massage): Yes For the Purpose of:: To decrease pain Please do not hesitate to contact me at [phone] by phone or if you have questions or concerns regarding this new plan of care! Sincerely, Eyal Loya, PT, ATC
--- NOTE | 2019-08-25 10:00 | HP.PTREVAL ---
Sav Block, DO, It has been my pleasure to treat POLI LUCAS over the last 17 visits for L WHITLEY. Please see the progress note below for an update on the physical therapy plan of care! Subjective: Pt reports no pain this date Objective/Function: 0/10 pain this date. L hip strength 5/5 throughout. Pt is able to ambulate greater than 1000' with ease. I with HEP Plan Plan: Cont with POC Goals Goal 1:: Decrease L hip pain x 50% to aid with sleep Goal Time Frame: 4-6 Weeks Goal Progress: Goal Met Goal 2:: Increase L hip strength x 1 grade to aid with stair negotiation Goal Time Frame: 4-6 Weeks Goal Progress: Goal Met Goal 3:: Pt will be able to ambulate with LRD 1000' feet to aid with community ambulation Goal Time Frame: 4-6 Weeks Goal Progress: Goal Met Goal 4:: I with HEP Goal Time Frame: 4-6 Weeks Goal Progress: Progressing Anticipated Interventions Patient/Client Instruction: Educate patient on: Condition, Plan of Care For the Purpose of:: To improve self management Therapeutic Exercise to Include: Strength training, Endurance training, Balance training, Gait and locomotor training, Dynamic Lumbar Stabilization For the Purpose of:: To decrease pain, To improve muscle performance and motor function, To increase tolerance to activity/condition/position Cryotherapy (ice pack, ice massage): Yes For the Purpose of:: To decrease pain Please do not hesitate to contact me at [phone] by phone or if you have questions or concerns regarding this new plan of care! Sincerely, Eyal Loya, PT, ATC
--- NOTE | 2019-09-01 10:03 | HP.PTDCSUM ---
It has been my pleasure to treat POLI LUCAS referred by Sav Block DO, with the diagnosis of L WHITLEY for a total of 20 visit(s). Discharge Date: Please see the following information for a summary of their discharge status. Subjective: Mild pain this date L WHITLEY Pain Intensity (Out of 10): 1 % Improvement: 90 Objective/Function: Pt I now with HEP. Rx goals achieved Goal 1:: Decrease L hip pain x 50% to aid with sleep Goal Progress: Goal Met Goal 2:: Increase L hip strength x 1 grade to aid with stair negotiation Goal Progress: Goal Met Goal 3:: Pt will be able to ambulate with LRD 1000' feet to aid with community ambulation Goal Progress: Goal Met Goal 4:: I with HEP Goal Progress: Goal Met Plan: Discharge If there are questions or concerns regarding this patient's physical therapy, please feel free to call me at [phone]. Thank you for the referral of this patient. Sincerely, Eyal Loya, PT, ATC
== END 2019-09-01 19:00 | disposition home or self-care (01) ==
LOC: PT 09:30
PROVIDERS: Family Provider Nurse Practitioner Family; PCP Nurse Practitioner Family; Referring Provider Orthopaedic Surgery; Visit Provider Orthopaedic Surgery
DX: Z96.642 Presence of left artificial hip joint (principal); Z47.1 Aftercare following joint replacement surgery
CPT/HCPCS: 97110; 97140; 97161; 97164

== ENCOUNTER → 2019-10-06 11:01 | Outpatient (CLI) | payer OTHER, SELFPAY ==
[2019-10-06 08:06] VITALS: BMI 31.4
--- NOTE | 2019-10-06 11:02 | RAD_ITS ---
STUDY: X-RAY - PELVIS AND LEFT HIP REASON FOR EXAM: Male, 68 years old. PAIN, 3 MONTH POST OP TECHNIQUE: 3 views of the pelvis and hip. COMPARISON: Comparison is made with prior examination dated July 13, 2019. FINDINGS: The patient is status post left hip replacement. There is good alignment. There has been no change. Persistent deformity of the right femoral head and neck. 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 Prostatic calcifications. RAD/HIP, UNI W/ Pelvis 2-3 Views IMPRESSION: Stable left total hip replacement. Electronically Signed: Cristopher Fox, at 11:38 EDT , Service support ,
== END ==
PROVIDERS: PCP Nurse Practitioner Family; Referring Provider Orthopaedic Surgery; Visit Provider Orthopaedic Surgery
DX: M25.552 Pain in left hip (principal)
CPT/HCPCS: 73502

== ENCOUNTER → 2019-10-25 06:29 | Outpatient (CLI) | payer OTHER, SELFPAY ==
[2019-10-06 08:06] VITALS: BMI 31.4
[2019-10-25 08:14] LABS: AST(SGOT) 13 U/L (15-37); Alanine Aminotransfer ALT/SGPT 27 U/L (16-61); Albumin, Serum 3.6 g/dL (3.2-5.0); Alkaline Phosphatase 60 U/L (45-117); Bilirubin, Direct 0.11 mg/dL (0.00-0.30); Cholesterol 113 mg/dL (200); Globulin 3.6 g/dL (2.2-4.2); High Density Lipoprotein 36 mg/dL; Protein, Total 7.2 g/dL (6.4-8.2); Triglycerides 66 mg/dL; Very Low Density Lipoprotein 13 mg/dL (5-40)
== END ==
PROVIDERS: PCP Nurse Practitioner Family; Referring Provider Nurse Practitioner Family; Visit Provider Nurse Practitioner Family
DX: E78.2 Mixed hyperlipidemia (principal)
CPT/HCPCS: 36415; 80061; 80076

== ENCOUNTER → 2020-02-06 10:00 | Outpatient (CLI) | payer OTHER, SELFPAY ==
[2020-02-06 09:21] VITALS: BMI 28.6
[2020-02-06 12:37] LABS: Anion Gap 5 (5-15); BUN 16 mg/dL (7-18); BUN/Creat Ratio 15.8 RATIO (10-20); Calcium,Total 9.3 mg/dL (8.5-10.1); Chloride 101 mmol/L (98-107); Creatinine, Serum 1.01 mg/dL (0.70-1.30); EST Glomerular Filtration Rate 78 mL/min (>60); Est Glom Filt Rate - Afr Amer 95 mL/min (>60); Glucose 132 mg/dL (74-106); Potassium 4.1 mmol/L (3.5-5.1); Sodium Level 137 mmol/L (136-145)
== END ==
PROVIDERS: PCP Internal Medicine; Referring Provider Nurse Practitioner Family; Visit Provider Nurse Practitioner Family
DX: I10 Essential (primary) hypertension (principal)
CPT/HCPCS: 36415; 80048

== ENCOUNTER → 2020-05-20 05:56 | Outpatient (CLI) | payer OTHER, SELFPAY ==
[2020-05-20 07:30] LABS: AST(SGOT) 11 U/L (15-37); Alanine Aminotransfer ALT/SGPT 27 U/L (16-61); Albumin, Serum 3.8 g/dL (3.2-5.0); Alkaline Phosphatase 58 U/L (45-117); Bilirubin, Direct 0.19 mg/dL (0.00-0.30); Cholesterol 122 mg/dL (200); Globulin 3.5 g/dL (2.2-4.2); High Density Lipoprotein 38 mg/dL; Protein, Total 7.3 g/dL (6.4-8.2); Triglycerides 75 mg/dL; Very Low Density Lipoprotein 15 mg/dL (5-40)
== END ==
PROVIDERS: PCP Internal Medicine; Referring Provider Nurse Practitioner Family; Visit Provider Nurse Practitioner Family
DX: E78.00 Pure hypercholesterolemia, unspecified (principal); E78.2 Mixed hyperlipidemia
CPT/HCPCS: 36415; 80061; 80076

== ENCOUNTER → 2020-11-12 06:03 | Outpatient (CLI) | payer OTHER, SELFPAY ==
[2020-10-09 09:10] VITALS: BMI 29.7
[2020-11-12 07:27] LABS: AST(SGOT) 21 U/L (15-37); Alanine Aminotransfer ALT/SGPT 36 U/L (16-61); Albumin, Serum 3.7 g/dL (3.2-5.0); Alkaline Phosphatase 61 U/L (45-117); Bilirubin, Direct 0.13 mg/dL (0.00-0.30); Cholesterol 117 mg/dL (200); Globulin 3.7 g/dL (2.2-4.2); High Density Lipoprotein 39 mg/dL; Protein, Total 7.4 g/dL (6.4-8.2); Triglycerides 71 mg/dL; Very Low Density Lipoprotein 14 mg/dL (5-40)
== END ==
PROVIDERS: PCP Nurse Practitioner Family; Referring Provider Nurse Practitioner Family; Visit Provider Nurse Practitioner Family
DX: E78.00 Pure hypercholesterolemia, unspecified (principal); E78.2 Mixed hyperlipidemia
CPT/HCPCS: 36415; 80061; 80076

== ENCOUNTER → 2021-01-08 09:00 | Outpatient (CLI) | payer OTHER, SELFPAY ==
[2021-01-08 08:37] VITALS: BMI 28.8
[2021-01-08 12:10] LABS: Absolute Lymphocyte Count 1.09 X10^3/uL (0.83-4.51); Absolute Neutrophil Count 2.8 X10^3/uL (2.0-7.7); Basophil# 0.05 X10^3/uL; Eosinophil# 0.45 X10^3/uL; Eosinophils% 9.3 % (0-5); Hematocrit 47.1 % (40-54); Hemoglobin 15.7 g/dL (13.0-16.5); Lymphocyte # 1.09 X10^3/ul (0.83-4.51); Lymphocyte % 22.6 % (19-41); Mean Corp Hgb Conc 33.3 g/dL (32-36); Mean Corpuscular Volume 93.1 fL (80-94); Monocyte# 0.45 X10^3/uL; Monocyte% 9.3 % (0-10); NRBC Flagged by Analyzer 0 % (0-5); Neutrophil # 2.77 X10^3/uL (2.7-7.7); Neutrophil % 57.4 % (47-70); Platelet Count 317 K/mm3 (150-450); RBC Distribution Width CV 11.9 % (11.6-14.6); RBC Distribution Width SD 40.7 fl (35.1-43.9); Red Blood Count 5.06 M/mm3 (4.6-6.2); White Blood Count 4.8 K/mm3 (4.4-11.0)
[2021-01-08 12:37] LABS: Microalbumin,Random Urine 12.1 mg/L (NO RANGE EST.); Microalbumin:Creatinine Ratio 12.6 mg/g CRE (<30 mg/g CRE)
[2021-01-08 12:39] LABS: PSA,Total - Annual Screen 1.19 ng/mL (0.00-4.00); Thyroid Stim Hormone (TSH) 1.71 uIU/mL (0.358-3.74)
== END ==
PROVIDERS: PCP Nurse Practitioner Family; Referring Provider Nurse Practitioner Family; Visit Provider Nurse Practitioner Family
DX: I25.10 Atherosclerotic heart disease of native coronary artery without angina pectoris (principal); E11.9 Type 2 diabetes mellitus without complications; I10 Essential (primary) hypertension
CPT/HCPCS: 36415; 82043; 82570; 84153; 84443; 85025; G0103

== ENCOUNTER → 2021-03-03 14:07 | Outpatient (CLI) | payer OTHER, SELFPAY | PROVIDERS: PCP Nurse Practitioner Family; Referring Provider Physician Assistant; Visit Provider Physician Assistant | DX: U07.1 COVID-19 (principal); Z20.822 Contact with and (suspected) exposure to COVID-19; R05 Cough; R09.81 Nasal congestion | CPT/HCPCS: 87635; U0005; U0003 ==

== ENCOUNTER 2021-03-06 14:26 | Outpatient (CLI) | payer OTHER, SELFPAY ==
[2021-03-06] MEDS: 0.9% Saline Lock 10 ML Syringe IV (14:52)
[2021-03-06 14:54] VITALS: BP 149/69; PULSE 88; RESP 16; TEMP 36.6; O2SAT 100; BMI 28.3
[2021-03-06 15:22] VITALS: BP 133/64; PULSE 87; RESP 16; TEMP 36.8; O2SAT 97
[2021-03-06 16:22] VITALS: BP 130/65; PULSE 79; RESP 16; TEMP 36.7; O2SAT 94
== END 2021-03-06 16:45 | disposition home or self-care (01) ==
LOC: ICUOUT 14:26 → MS3 14:27
PROVIDERS: PCP Nurse Practitioner Family; Referring Provider Nurse Practitioner Adult Health; Visit Provider Nurse Practitioner Adult Health
DX: Z23 Encounter for immunization (principal); U07.1 COVID-19
CPT/HCPCS: J7050; M0243; A4216; Q0244

== ENCOUNTER → 2021-04-18 12:45 | Outpatient (CLI) | payer OTHER, SELFPAY ==
--- NOTE | 2021-04-18 12:48 | ECHOCS_ITS ---
Reason For Study: Bicuspid AoV Procedure This was a 2D Doppler, Color Flow transthoracic echocardiogram. The study was technically difficult. Contrast injection was performed. Exam performed in department. Left Ventricle Normal LV size. Sigmoid septum. Left ventricular systolic function is normal. The estimated ejection fraction is 65 %. No evidence for diastolic dysfunction. No regional wall motion abnormalities noted. Right Ventricle Normal RV size. Normal systolic function. Atria Normal left atrium. Normal right atrium. No doppler evidence for ASD. Mitral Valve There is mild mitral annular calcification. Extension of the mitral annular calcification onto the posterior mitral valve leaflet. Trivial mitral valve insufficiency. Tricuspid Valve Normal tricuspid valve. Trivial tricuspid valve insufficiency. Right ventricular systolic pressure estimated to be 19 mmHg. Aortic Valve Bicuspid aortic valve. Severe focal aortic valve calcification. Mild aortic stenosis. Trivial aortic valve insufficiency. Pulmonic Valve The pulmonic valve is not well visualized. Trivial pulmonic valve insufficiency. Great Vessels Normal sized aortic root. Pericardium/Pleural No pericardial effusion. Medication Diluted definity 2ml given slow IV push to enhance endocardial definition. MMode/2D Measurements & Calculations LVIDd: 4.1 cm IVSd: 1.0 cm LVOT diam: 2.4 cm LVIDs: 2.8 cm LVPWd: 1.1 cm RVDd: 3.9 cm FS: 31.8 % LVOT area: 4.6 cm2 Ao root diam: 2.6 cm LAV(MOD-bp): 63.4 ml LVAd ap4: 32.2 cm2 LAV(MOD-bp) Indexed: 27.7 ml/m2 LVLd ap4: 8.2 cm LAV(MOD-sp2): 62.8 ml EDV(MOD-sp4): 101.7 ml LAV(MOD-sp4): 63.5 ml EDV(sp4-el): 106.7 ml LVAs ap4: 17.5 cm2 LVLs ap4: 6.9 cm ESV(MOD-sp4): 37.0 ml ESV(sp4-el): 37.5 ml EF(MOD-sp4): 63.6 % EF(sp4-el): 64.8 % SV(MOD-sp4): 64.6 ml SV(sp4-el): 69.2 ml LA A4 area: 21.7 cm2 LA dimension(2D): 4.7 cm RA A4 area: 16.0 cm2 Doppler Measurements & Calculations MV E max dhaval: 67.6 cm/sec Lat Peak E' Dhaval: 9.5 cm/sec Med Peak E' Dhaval: 6.6 cm/sec MV A max dhaval: 81.9 cm/sec E/E' lat: 7.1 E/E' med: 10.2 MV E/A: 0.82 Ao V2 max: 226.8 cm/sec LV V1 max: 90.5 cm/sec SV(LVOT): 86.6 ml Ao max P.6 mmHg LV V1 max P.3 mmHg Ao V2 mean: 166.9 cm/sec LV V1 mean P.9 mmHg Ao mean P.1 mmHg LV V1 mean: 65.6 cm/sec Ao V2 VTI: 47.2 cm LV V1 VTI: 18.9 cm PERRI(I,D): 1.8 cm2 PERRI(V,D): 1.8 cm2 TR max dhaval: 201.6 cm/sec TR max P.3 mmHg ECHO/Echo Complete W/ Contrast Interpretation Summary The study was technically difficult. Contrast injection was performed. Left ventricular systolic function is normal. The estimated ejection fraction is 65 %. Sigmoid septum. There is mild mitral annular calcification. Extension of the mitral annular calcification onto the posterior mitral valve l eaflet. Trivial mitral valve insufficiency. Trivial tricuspid valve insufficiency. Bicuspid aortic valve. Severe focal aortic valve calcification. Mild aortic stenosis. Trivial aortic valve insufficiency. Trivial pulmonic valve insufficiency. Right ventricular systolic pressure estimated to be 19 mmHg. No evidence for diastolic dysfunction. Ordering Physician: Nikos Márquez Referring Physician: Sid Nye Performed By: Xochitl Ca, MINACS, RVT
== END ==
PROVIDERS: PCP Nurse Practitioner Family; Referring Provider Internal Medicine Cardiovascular Disease; Visit Provider Internal Medicine Cardiovascular Disease
DX: Q23.1 Congenital insufficiency of aortic valve (principal)
CPT/HCPCS: 93306; Q9957; A4216; C8929

== ENCOUNTER → 2021-05-14 06:20 | Outpatient (CLI) | payer OTHER, SELFPAY ==
[2021-05-14 07:15] LABS: AST(SGOT) 18 U/L (15-37); Alanine Aminotransfer ALT/SGPT 36 U/L (16-61); Albumin, Serum 3.8 g/dL (3.2-5.0); Alkaline Phosphatase 53 U/L (45-117); Bilirubin, Direct 0.16 mg/dL (0.00-0.30); Cholesterol 133 mg/dL (200); Globulin 3.8 g/dL (2.2-4.2); High Density Lipoprotein 38 mg/dL; Protein, Total 7.6 g/dL (6.4-8.2); Triglycerides 105 mg/dL; Very Low Density Lipoprotein 21 mg/dL (5-40)
== END ==
PROVIDERS: PCP Nurse Practitioner Family; Referring Provider Nurse Practitioner Family; Visit Provider Nurse Practitioner Family
DX: E78.00 Pure hypercholesterolemia, unspecified (principal); E78.2 Mixed hyperlipidemia
CPT/HCPCS: 36415; 80061; 80076

== ENCOUNTER → 2021-12-19 | Outpatient (CLI) | payer OTHER, SELFPAY ==
[2021-12-19 11:37] LABS: Absolute Neutrophil Count 4.1 X10^3/uL (2.0-7.7); Basophil# 0.08 X10^3/uL; Basophil% 1.2 % (0-1); Eosinophil# 0.57 X10^3/uL; Eosinophils% 8.6 % (0-5); Hematocrit 53.3 % (40-54); Lymphocyte % 19.6 % (19-41); Mean Corp Hgb Conc 33.8 g/dL (32-36); Mean Corpuscular Hgb 31.4 pg (27.0-32.0); Mean Corpuscular Volume 92.9 fL (80-94); Mean Platelet Vol. 9.6 fl (6.2-12.0); Monocyte# 0.52 X10^3/uL; Monocyte% 7.8 % (0-10); NRBC Flagged by Analyzer 0 % (0-5); Neutrophil # 4.13 X10^3/uL (2.7-7.7); Neutrophil % 62.3 % (47-70); Platelet Count 305 K/mm3 (150-450); RBC Distribution Width CV 12.1 % (11.6-14.6); RBC Distribution Width SD 41.6 fl (35.1-43.9); Red Blood Count 5.74 M/mm3 (4.6-6.2); White Blood Count 6.6 K/mm3 (4.4-11.0)
[2021-12-19 11:52] LABS: Differential Indicated SCAN CRITERIA MET
[2021-12-19 12:00] LABS: AST(SGOT) 22 U/L (15-37); Alanine Aminotransfer ALT/SGPT 46 U/L (16-61); Alkaline Phosphatase 63 U/L (45-117); Anion Gap 5 (5-15); BUN 22 mg/dL (7-18); Calcium,Total 9.7 mg/dL (8.5-10.1); Chloride 101 mmol/L (98-107); Creatinine, Serum 1.22 mg/dL (0.70-1.30); EST Glomerular Filtration Rate 63 mL/min (>60); Est Glom Filt Rate - Afr Amer 76 mL/min (>60); Glucose 157 mg/dL (74-106); Potassium 4.6 mmol/L (3.5-5.1); Sodium Level 136 mmol/L (136-145)
[2021-12-24 07:14] LABS: Pathologist Review Reviewed
== END | disposition home or self-care (01) ==
LOC: BIMLAB 08:51
PROVIDERS: PCP Nurse Practitioner Family; Referring Provider Physician Assistant; Visit Provider Physician Assistant
DX: E11.9 Type 2 diabetes mellitus without complications (principal); I10 Essential (primary) hypertension
CPT/HCPCS: 36415; 80053; 85025

== ENCOUNTER → 2022-01-26 | Outpatient (CLI) | payer OTHER, SELFPAY ==
[2022-01-26 12:02] LABS: Absolute Lymphocyte Count 1.23 X10^3/uL (0.83-4.51); Absolute Neutrophil Count 3.9 X10^3/uL (2.0-7.7); Basophil# 0.06 X10^3/uL; Eosinophil# 0.29 X10^3/uL; Eosinophils% 4.8 % (0-5); Hematocrit 49.5 % (40-54); Hemoglobin 16.6 g/dL (13.0-16.5); Lymphocyte # 1.23 X10^3/ul (0.83-4.51); Lymphocyte % 20.6 % (19-41); Mean Corp Hgb Conc 33.5 g/dL (32-36); Mean Corpuscular Hgb 32.3 pg (27.0-32.0); Mean Corpuscular Volume 96.3 fL (80-94); Mean Platelet Vol. 10.2 fl (6.2-12.0); Monocyte# 0.53 X10^3/uL; Monocyte% 8.9 % (0-10); NRBC Flagged by Analyzer 0 % (0-5); Neutrophil # 3.86 X10^3/uL (2.7-7.7); Neutrophil % 64.5 % (47-70); Platelet Count 269 K/mm3 (150-450); RBC Distribution Width CV 11.9 % (11.6-14.6); RBC Distribution Width SD 42.3 fl (35.1-43.9); Red Blood Count 5.14 M/mm3 (4.6-6.2)
== END | disposition home or self-care (01) ==
LOC: BIMLAB 09:18
PROVIDERS: PCP Nurse Practitioner Family; Referring Provider Physician Assistant; Visit Provider Physician Assistant
DX: D58.2 Other hemoglobinopathies (principal)
CPT/HCPCS: 36415; 85025

== ENCOUNTER → 2022-01-27 | Outpatient (CLI) | payer OTHER, SELFPAY ==
[2022-01-27 07:39] LABS: AST(SGOT) 18 U/L (15-37); Alanine Aminotransfer ALT/SGPT 28 U/L (16-61); Albumin, Serum 3.4 g/dL (3.2-5.0); Alkaline Phosphatase 57 U/L (45-117); Bilirubin, Direct 0.11 mg/dL (0.00-0.30); Cholesterol 130 mg/dL (200); Globulin 3.5 g/dL (2.2-4.2); High Density Lipoprotein 35 mg/dL; Protein, Total 6.9 g/dL (6.4-8.2); Triglycerides 109 mg/dL; Very Low Density Lipoprotein 22 mg/dL (5-40)
== END | disposition home or self-care (01) ==
LOC: LAB 06:02
PROVIDERS: Internal Medicine Cardiovascular Disease; PCP Nurse Practitioner Family; Referring Provider Nurse Practitioner Family; Visit Provider Nurse Practitioner Family
DX: E78.00 Pure hypercholesterolemia, unspecified (principal); E78.2 Mixed hyperlipidemia
CPT/HCPCS: 36415; 80061; 80076

== ENCOUNTER → 2022-03-17 | Outpatient (CLI) | payer OTHER, SELFPAY ==
[2022-03-17 10:36] LABS: Bacteria 0 SEEN /hpf (None Seen); Mucous, Urine 0 SEEN /hpf (<or=2+); Red Blood Cells-Urine 0 SEEN /hpf (0-5); Squamous Epithelial Cells - UA 0 SEEN /hpf (0-5); White Blood Cells 0 SEEN /hpf (0-5)
[2022-03-17 12:17] LABS: Absolute Lymphocyte Count 1.07 X10^3/uL (0.83-4.51); Absolute Neutrophil Count 4.8 X10^3/uL (2.0-7.7); Basophil# 0.04 X10^3/uL; Basophil% 0.6 % (0-1); Eosinophils% 3.1 % (0-5); Hematocrit 52.4 % (40-54); Hemoglobin 17.3 g/dL (13.0-16.5); Lymphocyte # 1.07 X10^3/ul (0.83-4.51); Lymphocyte % 16.4 % (19-41); Mean Corpuscular Hgb 31.6 pg (27.0-32.0); Mean Corpuscular Volume 95.8 fL (80-94); Monocyte# 0.43 X10^3/uL; Monocyte% 6.6 % (0-10); NRBC Flagged by Analyzer 0 % (0-5); Neutrophil # 4.78 X10^3/uL (2.7-7.7); Platelet Count 295 K/mm3 (150-450); RBC Distribution Width CV 11.6 % (11.6-14.6); RBC Distribution Width SD 40.3 fl (35.1-43.9); Red Blood Count 5.47 M/mm3 (4.6-6.2); White Blood Count 6.5 K/mm3 (4.4-11.0)
[2022-03-17 12:26] LABS: Color, Urine Yellow (Yellow); Glucose, Dipstick 1000 mg/dl (Normal); Ketone-Dipstick 5 mg/dl (Negative); Leukocyte Esterase-Dipstick Negative /ul (Negative); Nitrite-Dipstick Negative (Negative); Occult Blood-Urine Negative /ul (Negative); Protein-Dipstick Negative (Negative); Urine Bilirubin Dipstick Negative (Negative); Urine Clarity Clear (Clear); Urine Urobilinogen Normal (Normal); Urine pH 6.5 (5.0 - 8.0)
[2022-03-17 12:33] LABS: Anion Gap 8 (5-15); BUN 24 mg/dL (7-18); BUN/Creat Ratio 21.8 RATIO (10-20); Calcium,Total 9.8 mg/dL (8.5-10.1); Chloride 102 mmol/L (98-107); EST Glomerular Filtration Rate 71 mL/min (>60); Est Glom Filt Rate - Afr Amer 85 mL/min (>60); Glucose 180 mg/dL (74-106); Potassium 4.3 mmol/L (3.5-5.1); Sodium Level 138 mmol/L (136-145)
[2022-03-17 12:53] LABS: Hemoglobin A1c 7.2 % (3.8-5.6)
[2022-03-17 12:58] LABS: Microalbumin,Random Urine 10.7 mg/L (NO RANGE EST.); Microalbumin:Creatinine Ratio 38.2 mg/g CRE (<30 mg/g CRE)
== END | disposition home or self-care (01) ==
LOC: BIMLAB 10:14
PROVIDERS: PCP Nurse Practitioner Family; Referring Provider Nurse Practitioner Family; Visit Provider Nurse Practitioner Family
DX: E11.9 Type 2 diabetes mellitus without complications (principal); R10.9 Unspecified abdominal pain; M54.50 Low back pain, unspecified
CPT/HCPCS: 36415; 80048; 81001; 82043; 82570; 83036; 85025

== ENCOUNTER → 2022-05-26 | Outpatient (CLI) | payer OTHER, SELFPAY | END | disposition home or self-care (01) | PROVIDERS: PCP Nurse Practitioner Family; Visit Provider Nurse Practitioner Gerontology | DX: G47.10 Hypersomnia, unspecified (principal) | CPT/HCPCS: 95810 ==

== ENCOUNTER → 2022-06-02 | Outpatient (CLI) | payer OTHER, SELFPAY ==
--- NOTE | 2022-06-02 09:57 | STRESSREP ---
Stress Test Report Date: Procedure: Exercise tolerance test/imaging study Indications: CAD; CABG; aortic valve disorder; mitral valve prolapse Consent: Per the patient Procedure: The patient exercised on a Del protocol for 9 minutes completing Stage III achieving a peak heart rate of 133 bpm (88% predicted maximal heart rate) with resting blood pressure of 128/70 mmHg and a peak blood pressure 190/58 mmHg and a peak MET capacity of 10 METs. The baseline ECG demonstrated normal sinus rhythm. The peak exercise ECG demonstrated no obvious ECG changes. There was an isolated PVC during exercise. The functional capacity was considered good. There was no complaint of chest discomfort during exercise or recovery. The examination was discontinued secondary to dyspnea. Impression: 1. Technically adequate (percent predicted maximal heart rate greater than 85%) exercise tolerance test 2. Peak exercise ECG with no obvious ECG changes 3. There was an isolated PVC during exercise 4. Nuclear images pending Myocardial perfusion imaging study: Technique: The patient was injected with 14.5 mCi of technetium 99m Cardiolite and subsequently rest SPECT Cardiolite nuclear imaging was obtained in the horizontal long, vertical long, and short axis views. The patient exercised on a Del protocol for 9 minutes completing Stage III achieving a peak heart rate of 133 bpm (88% predicted maximal heart rate) with resting blood pressure of 128/70 mmHg and a peak blood pressure 190/58 mmHg and a peak MET capacity of 10 METs. The patient was injected with 45.0 mCi of technetium 99m Cardiolite and subsequently stress SPECT Cardiolite nuclear imaging was obtained in the horizontal long, vertical long, and short axis views. A gated Cardiolite study at peak stress was obtained. Interpretation: Rest and stress SPECT Cardiolite nuclear imaging status post realignment, normalization, and attenuation correction, demonstrates the appearance of subtle diminished tracer uptake in the distal anterior/anteroseptal segments at rest which appears to improve/normalize following stress. There is end systolic thickening and brightening. The gated Cardiolite study demonstrates myocardial thickening and inward wall motion. The reported LVEF is 65%. Impression: 1. Rest and stress SPECT Cardiolite nuclear imaging demonstrate myocardial perfusion changes at rest which appear to improve/normalize following stress appearing compatible with shifting soft tissue attenuation/artifact with no myocardial perfusion changes considered diagnostic for associated stress-induced myocardial ischemia. 2. The gated Cardiolite study reports an LVEF of 65%. This note was generated with Dragon dictation software. It may contain incorrect words, spelling, and punctuation that were not noted in checking the note before signing.
== END | disposition home or self-care (01) ==
LOC: CVS 06:38
PROVIDERS: PCP Nurse Practitioner Family; Referring Provider Nurse Practitioner Gerontology; Visit Provider Nurse Practitioner Gerontology
DX: I25.10 Atherosclerotic heart disease of native coronary artery without angina pectoris (principal)
CPT/HCPCS: 78452; 93017; A9500; A4216

== ENCOUNTER → 2022-06-15 | Outpatient (CLI) | payer OTHER, SELFPAY | END | disposition home or self-care (01) | PROVIDERS: PCP Nurse Practitioner Family; Visit Provider Nurse Practitioner Acute Care | DX: G47.33 Obstructive sleep apnea (adult) (pediatric) (principal) | CPT/HCPCS: 95811 ==

== ENCOUNTER → 2022-09-18 | Outpatient (CLI) | payer OTHER, SELFPAY ==
[2022-09-18 12:58] LABS: Hematocrit 53.7 % (40-54); Hemoglobin 17.9 g/dL (13.0-16.5); Mean Corp Hgb Conc 33.3 g/dL (32-36); Mean Corpuscular Hgb 32.2 pg (27.0-32.0); Mean Corpuscular Volume 96.6 fL (80-94); Mean Platelet Vol. 9.5 fl (6.2-12.0); Platelet Count 299 K/mm3 (150-450); RBC Distribution Width SD 43.1 fl (35.1-43.9); Red Blood Count 5.56 M/mm3 (4.6-6.2); White Blood Count 5.5 K/mm3 (4.4-11.0)
[2022-09-18 13:09] LABS: AST(SGOT) 19 U/L (15-37); Alanine Aminotransfer ALT/SGPT 42 U/L (16-61); Albumin, Serum 3.7 g/dL (3.2-5.0); Alkaline Phosphatase 62 U/L (45-117); Anion Gap 7 (5-15); BUN 15 mg/dL (7-18); BUN/Creat Ratio 13.4 RATIO (10-20); Calcium,Total 9.5 mg/dL (8.5-10.1); Chloride 102 mmol/L (98-107); Creatinine, Serum 1.12 mg/dL (0.70-1.30); EST Glomerular Filtration Rate 69 mL/min (>60); Est Glom Filt Rate - Afr Amer 83 mL/min (>60); Globulin 3.8 g/dL (2.2-4.2); Glucose 135 mg/dL (74-106); Potassium 4.5 mmol/L (3.5-5.1); Protein, Total 7.5 g/dL (6.4-8.2); Sodium Level 137 mmol/L (136-145); Thyroid Stim Hormone (TSH) 2.27 uIU/mL (0.358-3.74)
== END | disposition home or self-care (01) ==
LOC: BIMLAB 08:51
PROVIDERS: PCP Nurse Practitioner Family; Referring Provider Nurse Practitioner Family; Visit Provider Nurse Practitioner Family
DX: D75.1 Secondary polycythemia (principal); E11.9 Type 2 diabetes mellitus without complications; I10 Essential (primary) hypertension; E78.2 Mixed hyperlipidemia
CPT/HCPCS: 36415; 80053; 84443; 85027

== ENCOUNTER → 2022-09-21 | Outpatient (CLI) | payer OTHER, SELFPAY ==
[2022-09-21 12:50] LABS: Carboxyhemoglobin Frac (CO) 2.8 % (0.0-1.5)
== END | disposition home or self-care (01) ==
LOC: BIMLAB 09:03
PROVIDERS: PCP Nurse Practitioner Family; Referring Provider Nurse Practitioner Family; Visit Provider Nurse Practitioner Family
DX: Z77.29 Contact with and (suspected) exposure to other hazardous substances (principal)
CPT/HCPCS: 36415; 82375

== ENCOUNTER → 2022-12-11 | Outpatient (CLI) | payer OTHER, SELFPAY ==
[2022-12-11 14:41] LABS: Carboxyhemoglobin Frac (CO) 2.1 % (0.0-1.5)
[2022-12-11 14:41] LABS: Hematocrit 50.9 % (40-54); Hemoglobin 16.7 g/dL (13.0-16.5); Mean Corp Hgb Conc 32.8 g/dL (32-36); Mean Corpuscular Hgb 31.7 pg (27.0-32.0); Mean Corpuscular Volume 96.8 fL (80-94); Mean Platelet Vol. 9.2 fl (6.2-12.0); Platelet Count 280 K/mm3 (150-450); RBC Distribution Width SD 42.8 fl (35.1-43.9); Red Blood Count 5.26 M/mm3 (4.6-6.2); White Blood Count 6.6 K/mm3 (4.4-11.0)
[2022-12-11 22:12] LABS: Carboxyhemoglobin Order ORDER TUBE
== END | disposition home or self-care (01) ==
LOC: MTLAB 14:09
PROVIDERS: PCP Nurse Practitioner Family; Referring Provider Nurse Practitioner Family; Visit Provider Nurse Practitioner Family
DX: D75.1 Secondary polycythemia (principal); Z77.29 Contact with and (suspected) exposure to other hazardous substances
CPT/HCPCS: 36415; 82375; 85027

== ENCOUNTER → 2023-03-26 | Outpatient (CLI) | payer OTHER, SELFPAY ==
[2023-03-26 07:37] LABS: AST(SGOT) 14 U/L (15-37); Alanine Aminotransfer ALT/SGPT 37 U/L (16-61); Albumin, Serum 3.5 g/dL (3.2-5.0); Alkaline Phosphatase 61 U/L (45-117); Bilirubin, Direct 0.23 mg/dL (0.00-0.30); Cholesterol 111 mg/dL (200); Globulin 3.7 g/dL (2.2-4.2); High Density Lipoprotein 37 mg/dL; Protein, Total 7.2 g/dL (6.4-8.2); Triglycerides 78 mg/dL; Very Low Density Lipoprotein 16 mg/dL (5-40)
== END | disposition home or self-care (01) ==
LOC: LAB 05:59
PROVIDERS: PCP Nurse Practitioner Family; Referring Provider Nurse Practitioner Gerontology; Visit Provider Nurse Practitioner Gerontology
DX: E78.2 Mixed hyperlipidemia (principal)
CPT/HCPCS: 36415; 80061; 80076

== ENCOUNTER → 2023-04-28 | Outpatient (CLI) | payer OTHER, SELFPAY ==
--- NOTE | 2023-04-28 09:51 | ECHOD_ITS ---
Reason For Study: BICUSPID AORTIC VALVE Procedure This was a 2D Doppler, Color Flow transthoracic echocardiogram. Exam performed in department. Left Ventricle Normal LV size. Left ventricular systolic function is normal. The estimated ejection fraction is 60 %. Stage 1 diastolic dysfunction. No regional wall motion abnormalities noted. Right Ventricle Normal RV size. Normal systolic function. Atria Normal left atrium. Normal right atrium. Mitral Valve Posteior leaflet restriction of the mitral valve. Mild focal mitral valve calcification of the posterior leaflet. Tricuspid Valve Normal tricuspid valve. Mild tricuspid valve insufficiency. Aortic Valve Bicuspid aortic valve. Mild focal aortic valve calcification. Peak aortic valve gradient 26 mmHg. Mean aortic valve gradient 16 mmHg. Pulmonic Valve Normal pulmonic valve. Great Vessels Normal aortic root. The pulmonary artery is normal size. Normal inferior vena cava. Pericardium/Pleural No pericardial effusion. MMode/2D Measurements & Calculations LVIDd: 4.3 cm IVSd: 1.2 cm LVOT diam: 2.4 cm LVIDs: 2.6 cm LVPWd: 1.0 cm LVOT area: 4.4 cm2 RVDd: 3.4 cm FS: 39.6 % Ao root diam: 3.5 cm LAV(MOD-bp): 43.3 ml LVAd ap4: 23.8 cm2 LAV(MOD-bp) Indexed: 19.5 ml/m2 LVLd ap4: 7.0 cm LAV(MOD-sp2): 46.5 ml EDV(MOD-sp4): 65.1 ml LAV(MOD-sp4): 36.6 ml EDV(sp4-el): 68.7 ml LVAs ap4: 13.3 cm2 LVLs ap4: 6.2 cm ESV(MOD-sp4): 25.1 ml ESV(sp4-el): 24.5 ml EF(MOD-sp4): 61.5 % EF(sp4-el): 64.4 % LVAd ap2: 25.8 cm2 SV(MOD-sp4): 40.0 ml SV(MOD-sp2): 38.7 ml LVLd ap2: 7.8 cm EDV(MOD-sp2): 68.7 ml EDV(sp2-el): 72.0 ml LVAs ap2: 15.2 cm2 LVLs ap2: 6.6 cm ESV(MOD-sp2): 30.0 ml ESV(sp2-el): 29.9 ml EF(MOD-sp2): 56.3 % SV(sp4-el): 44.2 ml LA dimension(2D): 4.3 cm LA A4 area: 15.9 cm2 RA A4 area: 14.8 cm2 TAPSE: 1.1 cm Time Measurements MV dec time: 0.11 sec Doppler Measurements & Calculations MV E max dhaval: 70.2 cm/sec Lat Peak E' Dhaval: 7.9 cm/sec Med Peak E' Dhaval: 13.2 cm/sec MV A max dhaval: 89.8 cm/sec E/E' lat: 8.8 E/E' med: 5.3 MV E/A: 0.78 Ao V2 max: 257.4 cm/sec LV V1 max: 74.3 cm/sec MV dec slope: 649.9 cm/sec2 Ao max P.5 mmHg LV V1 max P.2 mmHg Ao V2 mean: 188.9 cm/sec LV V1 mean P.2 mmHg Ao mean P.6 mmHg LV V1 mean: 50.2 cm/sec Ao V2 VTI: 46.3 cm LV V1 VTI: 15.8 cm AV (velocity ratio): 0.34 PERRI(I,D): 1.5 cm2 PERRI(V,D): 1.3 cm2 SV(LVOT): 68.8 ml PA V2 max: 118.6 cm/sec TR max dhaval: 196.3 cm/sec PA max PG (full): 3.6 mmHg TR max P.4 mmHg ECHO/Echo Complete Interpretation Summary Normal LV size. Left ventricular systolic function is normal. The estimated ejection fraction is 60 %. Mild focal aortic valve calcification. Mean aortic valve gradient 16 mmHg. Stage 1 diastolic dysfunction. Mild tricuspid valve insufficiency. Bicuspid aortic valve. Ordering Physician: Suma Glasgow Referring Physician: Suma Glasgow Performed By: Cindi Mcdonald RDCS
== END | disposition home or self-care (01) ==
LOC: CVS 09:50
PROVIDERS: PCP Nurse Practitioner Family; Referring Provider Nurse Practitioner Gerontology; Visit Provider Nurse Practitioner Gerontology
DX: I35.0 Nonrheumatic aortic (valve) stenosis (principal); I34.1 Nonrheumatic mitral (valve) prolapse; I38 Endocarditis, valve unspecified
CPT/HCPCS: 93306

== ENCOUNTER → 2023-12-08 | Outpatient (CLI) | payer OTHER, SELFPAY ==
[2023-12-08 06:58] LABS: Absolute Lymphocyte Count 1.39 X10^3/uL (0.83-4.51); Absolute Neutrophil Count 4.4 X10^3/uL (2.0-7.7); Basophil# 0.09 X10^3/uL; Basophil% 1.3 % (0-1); Eosinophil# 0.39 X10^3/uL; Eosinophils% 5.6 % (0-5); Hematocrit 52.3 % (40-54); Hemoglobin 17.3 g/dL (13.0-16.5); Lymphocyte # 1.39 X10^3/ul (0.83-4.51); Mean Corp Hgb Conc 33.1 g/dL (32-36); Mean Corpuscular Volume 96.9 fL (80-94); Mean Platelet Vol. 9.4 fl (6.2-12.0); Monocyte# 0.67 X10^3/uL; Monocyte% 9.7 % (0-10); NRBC Flagged by Analyzer 0 % (0-5); Neutrophil # 4.38 X10^3/uL (2.7-7.7); Neutrophil % 63.1 % (47-70); Platelet Count 281 K/mm3 (150-450); RBC Distribution Width CV 11.9 % (11.6-14.6); White Blood Count 6.9 K/mm3 (4.4-11.0)
[2023-12-08 07:57] LABS: AST(SGOT) 19 U/L (15-37); Alanine Aminotransfer ALT/SGPT 38 U/L (16-61); Albumin, Serum 3.6 g/dL (3.2-5.0); Alkaline Phosphatase 67 U/L (45-117); Anion Gap 4 (5-15); BUN 20 mg/dL (7-18); BUN/Creat Ratio 18.3 RATIO (10-20); Calcium,Total 8.8 mg/dL (8.5-10.1); Chloride 104 mmol/L (98-107); Cholesterol 137 mg/dL (200); Creatinine, Serum 1.09 mg/dL (0.70-1.30); EST Glomerular Filtration Rate 71 mL/min (>60); Est Glom Filt Rate - Afr Amer 86 mL/min (>60); Globulin 3.6 g/dL (2.2-4.2); Glucose 142 mg/dL (74-106); High Density Lipoprotein 38 mg/dL; Potassium 3.9 mmol/L (3.5-5.1); Protein, Total 7.2 g/dL (6.4-8.2); Sodium Level 136 mmol/L (136-145); Triglycerides 91 mg/dL; Very Low Density Lipoprotein 18 mg/dL (5-40)
[2023-12-08 08:02] LABS: Microalbumin,Random Urine 10.8 mg/L (NO RANGE EST.)
== END | disposition home or self-care (01) ==
LOC: LAB 06:01
PROVIDERS: PCP Nurse Practitioner Family; Referring Provider Nurse Practitioner Family; Visit Provider Nurse Practitioner Family
DX: E11.9 Type 2 diabetes mellitus without complications (principal)
CPT/HCPCS: 36415; 80053; 80061; 82043; 84443; 85025

== ENCOUNTER → 2024-04-05 | Outpatient (CLI) | payer OTHER, SELFPAY ==
--- OUTSIDE RECORDS SUMMARY | 2024-04-05 09:08 | XMS RPT_ITS | CCD ---
Author Organization [facility] Care Team Providers Care Paint Line Supervisor Name Role Phone Ammon Cooper MD Unavailable Nikos Márquez MD Unavailable Pantera Leon Unavailable Unavailable EMILI Sanchez, Kate Chavez Unavailable Rosa Elena Glez Unavailable Unavailable REINALDO HERNANDEZ Unavailable Unavailable Maryana Lorenzana PA-C Unavailable Rosa Elena Glez Unavailable Unavailable Medications Completed/Discontinued Medications Medication Drug Class(es) Dates Sig (Normalized) Sig (Original) aspirin 325 mg delayed release oral tablet (16 sources) Nonsteroidal Anti-inflammatory Drug Start: 08-21-2011 take 1 tablet by mouth once daily ECOTRIN 325 MG TBEC One tablet by mouth daily ASPIRIN [id number] Harjeet Best MD Start: 08-21-2011 take 1 tablet by maryann th once daily ECOTRIN 325 MG TBEC One tablet by mouth daily ASPIRIN [id number] Harjeet Best MD Start: 09-30-2010 take 1 tablet by maryann th once daily ASPIRIN 81 MG TABS One tablet by mouth daily ASPIRIN [id number] Urvashi Brown Start: 09-30-2010 take 1 tablet by maryann th once daily ASPIRIN 81 MG TABS One tablet by mouth daily ASPIRIN [id number] Urvashi Brown atorvastatin 80 mg oral tablet (20 sources) HMG-CoA Reductase Inhibitor Start: 08-12-2012 take 1 tablet by mouth once daily LIPITOR 80 MG TABS One tablet by mouth daily ATORVASTATIN CALCIUM [id number] Nikos Márquez MD Start: 09-30-2010 take 1 tablet by maryann th once daily LIPITOR 40 MG TABS One tablet by mouth daily ATORVASTATIN CALCIUM [id number] Harjeet Best MD MULTIPLE VITAMINS-MINERALS (1 source) Start: 02-17-2013 take 1 tablet by mouth once daily CENTRUM SILVER TABS One tablet by mouth daily MULTIPLE VITAMINS-MINERALS [id number] Nikos Márquez MD MULTIPLE VITAMINS-MINERALS (7 sources) Start: 02-17-2013 take 1 tablet by mouth once daily CENTRUM SILVER TABS One tablet by mouth daily MULTIPLE VITAMINS-MINERALS [id number] Nikos Márquez MD niacin 500 mg oral tablet (20 sources) Nicotinic Acid Start: 09-30-2010 take 1 tablet by mouth once daily NIASPAN 500 MG CR-TABS One tablet by mouth daily NIACIN (ANTIHYPERLIPIDEMIC) [id number] Nikos Márquez MD Start: 09-30-2010 End: 03-09-2017 take 1 tablet by mouth once daily at bedtime NIACIN 500 MG TABS (ER) One tablet by mouth daily at bedtime NIACIN [id number] Ammon Cooper MD OMEGA-3 FATTY ACIDS CPDR (2 sources) Start: 09-22-2013 take 1 tablet by mouth once daily OMEGA 3 CPDR One tablet by mouth daily OMEGA-3 FATTY ACIDS CPDR [id number] Nikos Márquez MD Start: 02-17-2013 OMEGA 3 CPDR 2 OMEGA-3 FATTY ACIDS CPDR [id number] Nikos Márquez MD OMEGA-3 FATTY ACIDS CPDR (14 sources) Start: 09-22-2013 take 1 tablet by mouth once daily OMEGA 3 CPDR One tablet by mouth daily OMEGA-3 FATTY ACIDS CPDR [id number] Nikos Márquez MD Start: 02-17-2013 OMEGA 3 CPDR 2 OMEGA-3 FATTY ACIDS CPDR [id number] Nikos Márquez MD ramipril 2.5 mg oral capsule (20 sources) Angiotensin Converting Enzyme Inhibitor Start: 08-10-2011 take 1 tablet by mouth twice daily ALTACE 2.5 MG CAPS One tablet by mouth twice daily RAMIPRIL [id number] Harjeet Best MD Start: 08-10-2011 take 1 tablet by maryann th twice daily ALTACE 2.5 MG CAPS One tablet by mouth twice daily RAMIPRIL [id number] Harjeet Best MD Start: 09-30-2010 take 1 tablet by maryann th once daily ALTACE 2.5 MG CAPS One tablet by mouth daily RAMIPRIL [id number] Nikos Márquez MD Start: 09-30-2010 take 1 tablet by maryann th once daily ALTACE 2.5 MG CAPS One tablet by mouth daily RAMIPRIL [id number] Nikos Márquez MD Problems Active Problems Problem Classification Problem Date Documented Date Episodic/Chronic Cardiac and circulatory congenital anomalies (8 sources) Bicuspid aortic valve; Translations: [Congenital insufficiency of aortic valve] Onset: 09-30-2010 04-05-2015 Chronic Cardiac dysrhythmias (8 sources) Conduction disorder of the heart; Translations: [Conduction disorder, unspecified] Onset: 09-30-2010 09-30-2010 Chronic Coronary atherosclerosis and other heart disease (16 sources) Atherosclerotic heart disease of [place] coronary artery without angina pectoris; Translations: [Coronary arteriosclerosis] Onset: 09-30-2010 09-14-2016 Chronic Disorders of lipid metabolism (8 sources) Hyperlipidemia; Translations: [Hyperlipidemia, unspecified] Onset: 09-30-2010 09-30-2010 Chronic Essential hypertension (8 sources) Hypertensive disorder; Translations: [Essential (primary) hypertension] Onset: 02-03-2011 02-03-2011 Chronic Heart valve disorders (8 sources) Aortic valve stenosis; Translations: [Nonrheumatic aortic (valve) stenosis] Onset: 09-30-2010 09-30-2010 Chronic Other nutritional; endocrine; and metabolic disorders (20 sources) Body mass index (BMI) 33.0-33.9, adult; Translations: [Body mass index (BMI) 30.0-30.9, adult] Onset: 02-17-2013 Resolved: 09-21-2014 02-17-2013 Chronic Other nutritional; endocrine; and metabolic disorders (20 sources) Body mass index (BMI) 32.0-32.9, adult; Translations: [Body mass index (BMI) 30.0-30.9, adult] Onset: 02-17-2013 Resolved: 09-21-2014 03-29-2017 Chronic Other nutritional; endocrine; and metabolic disorders (3 sources) Body mass index (BMI) 30.0-30.9, adult; Translations: [Body mass index (BMI) 30.0-30.9, adult] Onset: 03-23-2014 09-18-2016 Chronic Other nutritional; endocrine; and metabolic disorders (6 sources) Body mass index (BMI) 34.0-34.9, adult; Translations: [Body mass index (BMI) 34.0-34.9, adult] Onset: 02-17-2013 Resolved: 09-21-2014 09-21-2014 Chronic Unclassified (7 sources) Long-term drug therapy; Translations: [Other prison (current) drug therapy] Onset: 02-03-2011 02-03-2011 Past or Other Problems Problem Classification Problem Date Documented Da te Episodic/Chronic Coronary atherosclerosis and other heart disease (8 sources) Presence of aortocoronary bypass graft; Translations: [Presence of aortocoronary bypass graft] Onset: 09-30-2010 09-30-2010 Episodic Other aftercare (1 source) Other local intermodal truck driver (current) drug therapy; Translations: [Other prison (current) drug therapy] Onset: 02-03-2011 02-03-2011 Episodic Other skin disorders (8 sources) Epidermoid cyst of skin; Translations: [Sebaceous cyst] Onset: 03-09-2017 03-09-2017 Episodic Unclassified (8 sources) Family history of ischemic heart disease; Translations: [Family history of ischemic heart disease and other diseases of the circulatory system] Onset: 09-30-2010 09-30-2010 Episodic Results Test Name Value Interpretation Reference Range Facility Clinical Lists Update: Prelo investigator cash shortage 04-13-2017 Left ventricular Ejection fraction 60 % Invalid Interpretation Code [employer] Phone: Office Visiton 03-29-2017 Documentation of current medications (procedure) Done Invalid Interpretation Code [employer] Phone: [phone] Fall risk assessment No Invalid Interpretation Code [employer] Phone: [phone] Protein mass conc Done Invalid Interpretation Code [employer] Phone: [phone] Lab Report: Lipid Profileon 03-25-2017 Cholesterol 144 mg/dL Invalid Interpretation Code 200 [employer] Work Phone: [phone] HDL Cholesterol 44 mg/dL Invalid Interpretation Code [employer] Work Phone: [phone] LDL Cholesterol 83 mg/dL Invalid Interpretation Code 0-130 [employer] Phone: [phone] Triglyceride 86 mg/dL Invalid Interpretation Code [employer] Work Phone: [phone] very low density lipoproteins 17 mg/dL Invalid Interpretation Code 5-40 [employer] Work Phone: [phone] Lab Report: Liver Profileon 03-25-2017 Alanine aminotransferase (ALT) 34 U/L Invalid Interpretation Code 12-78 [employer] Phone: [phone] Albumin 3.7 g/dL Invalid Interpretation Code 3.4-5.0 [employer] Phone: [phone] Alkaline phosphatase (ALP) 58 U/L Invalid Interpretation Code 45-117 [employer] Work Phone: [phone] ALP enzyme act/vol (Bld) 58 U/L Invalid Interpretation Code 45-117 [employer] Phone: [phone] Aspartate aminotransferase (AST) 17 U/L Invalid Interpretation Code 15-37 [employer] Phone: [phone] Bilirubin (direct) 0.19 mg/dL Invalid Interpretation Code 0.00-0.30 [employer] Phone: [phone] Bilirubin (total) 0.80 mg/dL Invalid Interpretation Code 0.20-1.00 [employer] Work Phone: [phone] Globulin 4.0 g/dL High 2.3-3.5 [employer] Phone: [phone] Protein 7.7 g/dL Invalid Interpretation Code 6.4-8.2 [employer] Phone: [phone] Office Visit: f/u august hearnon 03-18-2017 Dietary management education, guidance, and counseling (procedure) yes Invalid Interpretation Code [employer] Phone: [phone] Documentation of current medications (procedure) Done Invalid Interpretation Code [employer] Phone: Fall risk assessment No Invalid Interpretation Code [facility] [employer] Work Phone: Protein mass conc Done Invalid Interpretation Code [facility] [employer] Work Phone: Tobacco smoking status NHIS Former smoker Invalid Interpretation Code [facility] [employer] Work Phone: Tobacco use [facility] Former smoker Invalid Interpretation Code [facility] Work Phone: Office Visit: right shoulder lipomaon 03-09-2017 Dietary management education, guidance, and counseling (procedure) yes Invalid Interpretation Code [facility] [employer] Work Phone: Documentation of current medications (procedure) Done Invalid Interpretation Code [facility] [employer] Work Phone: Fall risk assessment No Invalid Interpretation Code [facility] [employer] Work Phone: Tobacco use [facility] Former smoker Invalid Interpretation Code [facility] [employer] Work Phone: CNOVon 01-08-2017 CNOV Office Visit ([facility]) ------[facility][id number][facility] 1950 [facility] Department01/08/17 8:00 AM REINALDO HERNANDEZ During your visit today, we recorded the following information about you:Palak Vogel Ma 01/08/2017 8:56 AM SignedAMB ROOMING INTAKE FLOWSHEET DATARisk ScreeningDo you have concerns about personal safety or safety in the home?: NoPainPain Score: 7/10Pain Location: Other: See Comment (bilateral elbow)Description: SharpDuration Amount of Time: (ongoing)Frequency: ContinuousIntervention: MedicationPatient here today for 13 week 1 day post visit bilateral lateralepicondylitis, LANDgt;Dhruv Hernandez DO 01/08/2017 8:56 AM SignedPoli Lucas presents with pain in the bilateral elbow. Pain radiates to,the forearm. Associated symptoms are, stiffness. Right arm injected 3 monthsago with good relief but symptoms are returning. Left elbow is worse thanright.Patient describes pain with palpation over the lateral elbow, and withrotational movements and extension movements of the forearm and wrist.PAST MEDICAL HISTORYDiagnosis Date- Hernia of other specified sites of abdominal cavity without mention ofobstruction or gangrene INGUINAL- Other and unspecified hyperlipidemiapulmonary stenosisCurrent Outpatient Prescriptions on File Prior to Visit:[place]-3 Fatty Acids 500 mg cap Take 1 capsule by mouth once daily.atorvastatin (LIPITOR) 80 mg tablet Take 40 mg by mouth daily at bedtime. Forcholesterol.aspirin, enteric coated (ECOTRIN) 325 mg EC tablet Take 1 tablet by mouth oncedaily. Take with food.triamcinolone acetonide 0.1 % cream Apply 1 application to affected area twicedaily.ramipril 2.5 mg capsule Take 1 capsule by mouth once daily.niacin 500 mg CR capsule Take 1 capsule by mouth daily at bedtime.MULTI-VITAMIN TAB Take one(1) tablet daily.No current facility-administered medications on file prior to visit.Physical Exam Findings:General exam: Normal,Extremeties right elbow tenderness to palpation over the lateral epicondyles.Pain is reproduced with resisted wrist extension, forearm rotation.Sensorineural examination of the upper extremity is normal.Assessment:Traumati c lateral epicondylitis right elbowPlan:1. Patient Instructions: apply ice and do exercises for stretching andstrengthening, handout given2. PROCEDURE: INJECTIONThe risk, benefits and alternatives of injection and no injection therapy werediscussed. Personnel were discussed and the patient consented for an injection. The patient has been identified by name and birthdate. The injection site wasidentified, marked and prepped with a alcohol swab. Time out completed. Thepoint of maximal tenderness and the lateral epicondyle of the right and leftelbow were injected with a 22 gauge needle with 1cc Celestone (6 mg), and 1ccxylocaine plain 1%. The injection site was then dressed with a bandaid. Thepatient tolerated the injection well. The patient was instructed to call theoffice if any adverse local effects occurred or any if any questions orconcerns arise.To [place] Provider: SELF [[id number]]Allergies As of Date: 01/08/2017(No Known Allergies)Date Reviewed: 01/08/2017Reviewed by: Palak Vogel Ma - Fully AssessedReason for Visit: Established Patient [175] Cmt: 13 week 1 day post visit right lateral epicondylitisPrimary Visit Diagnosis:Lateral epicondylitis of both elbows [M77.11, M77.12]Prescriptions as of 01/08/2017 Sig: OMEGA-3 FATTY ACIDS 500 MG CA* Take 1 capsule by mouth once * ATORVASTATIN 80 MG TABLET Take 40 mg by mouth daily at * ASPIRIN 325 MG TABLET,DELAYED* Take 1 tablet by mouth once d* * RAMIPRIL 2.5 MG CAPSULE Take 1 capsule by mouth once * * NIACIN ER 500 MG CAPSULE,EXTE* Take 1 capsule by mouth daily* * MULTI-VITAMIN TABLET Take one(1) tablet daily. TRIAMCINOLONE ACETONIDE 0.1 %* Apply 1 application to affect*Problem List As Of Date 01/08/2017 Noted Resolved HYPERLIPIDEMIA NEC/NOS [E78.5] HERNIA NEC [K45.8] More... CORONARY ATHEROSCLER UNSPEC VESSEL [I25.10] INVALID FOR* S/P CABG x 3 [Z95.1] INVALID FOR* Status:Closed by REINALDO HERNANDEZ DO, V on 01/08/[address] [facility] PROGRESSon 01-08-2017 PROGRESS HNO ID: [id number] thor: Rosaura Serrano: (none)Author Type: PhysicianType: Progress NotesFiled: 01/08/2017 8:56 AMNote Text:Poli Lucas presents with pain in the bilateral elbow. Pain radiatesto, the forearm. Associated symptoms are, stiffness. Right arm injected3 months ago with good relief but symptoms are returning. Left elbow isworse than right.Patient describes pain with palpation over the lateral elbow, and withrotational movements and extension movements of the forearm and wrist.PAST MEDICAL HISTORYDiagnosis Date- Hernia of other specified sites of abdominal cavity without mention ofobstruction or gangrene INGUINAL- Other and unspecified hyperlipidemiapulmonary stenosisCurrent Outpatient Prescriptions on File Prior to Visit:[place]-3 Fatty Acids 500 mg cap Take 1 capsule by mouth once daily.atorvastatin (LIPITOR) 80 mg tablet Take 40 mg by mouth daily at bedtime.For cholesterol.aspirin, enteric coated (ECOTRIN) 325 mg EC tablet Take 1 tablet by mouthonce daily. Take with food.triamcinolone acetonide 0.1 % cream Apply 1 application to affected areatwice daily.ramipril 2.5 mg capsule Take 1 capsule by mouth once daily.niacin 500 mg CR capsule Take 1 capsule by mouth daily at bedtime.MULTI-VITAMIN TAB Take one(1) tablet daily.No current facility-administered medications on file prior to visit.Physical Exam Findings:General exam: Normal,Extremeties right elbow tenderness to palpation over the lateralepicondyles. Pain is reproduced with resisted wrist extension, forearmrotation. Sensorineural examination of the upper extremity is normal.Assessment:Traumati c lateral epicondylitis right elbowPlan:1. Patient Instructions: apply ice and do exercises for stretching andstrengthening, handout given2. PROCEDURE: INJECTIONThe risk, benefits and alternatives of injection and no injection therapywere discussed. Personnel were discussed and the patient consented for aninjection. The patient has been identified by name and birthdate. Theinjection site was identified, marked and prepped with a alcohol swab.Time out completed. The point of maximal tenderness and the lateralepicondyle of the right and left elbow were injected with a 22 gaugeneedle with 1cc Celestone (6 mg), and 1cc xylocaine plain 1%. Theinjection site was then dressed with a bandaid. The patient tolerated theinjection well. The patient was instructed to call the office if anyadverse local effects occurred or any if any questions or concerns arise.Reinaldo Hernandez DO Normal [facility] PROGRESS HNO ID: [id number] thor: Palak Browneice: (none)Author Type: (none)Type: Progress NotesFiled: 01/08/2017 8:56 AMNote Text:AMB ROOMING INTAKE FLOWSHEET DATARisk ScreeningDo you have concerns about personal safety or safety in the home?: NoPainPain Score: 7/10Pain Location: Other: See Comment (bilateral elbow)Description: SharpDuration Amount of Time: (ongoing)Frequency: ContinuousIntervention: MedicationPatient here today for 13 week 1 day post visit bilateral lateralepicondylitis, L>R. Normal [facility] Replaced Document: Midmark E CG Observationson 09-18-2016 EKG QRS axis 62 deg Invalid Interpretation Code [facility] Work Phone: electrocardiogram interpretation Sinus Rhythm -First degree A-V block Chidi = [id number] RHYTHM Invalid Interpretation Code [facility] Work Phone: GE use only - for LinkLogic import when terms are not otherwise specified 393 ms Invalid Interpretation Code [facility] Work Phone: Interpretation Sinus Rhythm -First degree A-V block Chidi = 238BORDERLINE RHYTHM Invalid Interpretation Code [facility] Work Phone: P [place] 47 deg Invalid Interpretation Code [facility] Work Phone: P wave axis, electrocardiogram 47 deg Invalid Interpretation Code [facility] Work Phone: LA Interval 238 ms Invalid Interpretation Code [facility] [employer] Work Phone: LA interval, electrocardiogram 238 ms Invalid Interpretation Code [facility] [employer] Work Phone: Pulse (Heart Rate) 86 /min Invalid Interpretation Code [facility] Work Phone: QRS axis, electrocardiogram 62 deg Invalid Interpretation Code [facility] Work Phone: QRS Duration 96 ms Invalid Interpretation Code [facility] Work Phone: QRS duration, electrocardiogram 96 ms Invalid Interpretation Code [facility] Work Phone: QT Interval new path ms Invalid Interpretation Code [facility] Work Phone: QT interval, electrocardiogram new path ms Invalid Interpretation Code [facility] Work Phone: QTc De Olive[place] 393 ms Invalid Interpretation Code [facility] Work Phone: T [place] 48 deg Invalid Interpretation Code [facility] Work Phone: T wave axis, electrocardiogram 48 deg Invalid Interpretation Code [facility] Work Phone: Lab Report: Lipid Profileon 09-16-2016 Cholesterol 121 mg/dL Invalid Interpretation Code 200 [facility] Work Phone: HDL Cholesterol 39 mg/dL Low [facility] Work Phone: LDL Cholesterol 64 mg/dL Invalid Interpretation Code 0-130 [facility] [employer] Work Phone: Triglyceride 90 mg/dL Invalid Interpretation Code [facility] [employer] Work Phone: very low density lipoproteins 18 mg/dL Invalid Interpretation Code 5-40 [facility] [employer] Work Phone: Lab Report: Liver Profileon 09-16-2016 Alanine aminotransferase (ALT) 34 U/L Invalid Interpretation Code 12-78 [facility] [employer] Work Phone: Albumin 3.7 g/dL Invalid Interpretation Code 3.4-5.0 [facility] [employer] Work Phone: Alkaline phosphatase (ALP) 59 U/L Invalid Interpretation Code 45-117 [facility] [employer] Work Phone: ALP enzyme act/vol (Bld) 59 U/L Invalid Interpretation Code 45-117 [facility] [employer] Work Phone: Aspartate aminotransferase (AST) 17 U/L Invalid Interpretation Code 15-37 [facility] [employer] Work Phone: Bilirubin (direct) 0.15 mg/dL Invalid Interpretation Code 0.00-0.30 [facility] [employer] Work Phone: Bilirubin (total) 0.80 mg/dL Invalid Interpretation Code 0.20-1.00 [facility] [employer] Work Phone: Globulin 3.9 g/dL High 2.3-3.5 [facility] [employer] Work Phone: Protein 7.6 g/dL Invalid Interpretation Code 6.4-8.2 [facility] [employer] Work Phone: Clinical Lists Update: Prelo investigator cash shortage 09-14-2016 Left ventricular Ejection fraction 60 % Invalid Interpretation Code [facility] [employer] Work Phone: Office Visiton 09-21-2014 cardiac risk group C Invalid Interpretation Code [facility] [employer] Work Phone: General cardiovascular disease 10Y risk [#] [place]D'Agost[place] o N/A Invalid Interpretation Code [facility] [employer] Work Phone: Replaced Document: Midmark E CG Observationson 09-22-2013 Pulse (Heart Rate) 389 ms Invalid Interpretation Code [facility] Work Phone: Vital Signs Date Time Vital Sign Value Performing Clinician Facility 03-29-2017 09:29-0400 BMI (Body Mass Index) 32.28 kg/m2 [facility] Work Phone: 03-29-2017 09:29-0400 BP Diastolic 80 mm[Hg] [facility] Work Phone: 03-29-2017 09:29-0400 BP Systolic 138 mm[Hg] [facility] Work Phone: 03-29-2017 09:29-0400 Height 180.34 cm [facility] Work Phone: 03-29-2017 09:29-0400 Pulse (Heart Rate) 84 /min [facility] Work Phone: 03-29-2017 09:29-0400 Respiratory Rate 18 /min [facility] Work Phone: 03-29-2017 09:29-0400 Weight 104.98 kg [facility] Work Phone: 03-09-2017 07:33-0400 BMI (Body Mass Index) 30.68 kg/m2 Ammon Cooper MD [facility] Work Phone: 03-09-2017 07:33-0400 BP Diastolic 79 mm[Hg] Ammon Cooper MD [facility] Work Phone: 03-09-2017 07:33-0400 BP Systolic 133 mm[Hg] Ammon Cooper MD [facility] Work Phone: 03-09-2017 07:33-0400 Height 180.34 cm Ammon Cooper MD [facility] Work Phone: 03-09-2017 07:33-0400 Pulse (Heart Rate) 85 /min Ammon Cooper MD [facility] Work Phone: 03-09-2017 07:33-0400 Respiratory Rate 18 /min Ammon Cooper MD [facility] [employer] Work Phone: 03-09-2017 07:33-0400 Weight 99.79 kg Ammon Cooper MD [facility] [employer] Work Phone: 09-18-2016 10:42-0400 Heart rate 86 /min Maryana Lorenzana PA-C [facility] [employer] Work Phone: 03-20-2016 08:54-0400 BSA (Body Surface Area) 2.26 m2 Ammon Cooper MD [facility] [employer] Work Phone: 09-22-2013 09:20-0400 Heart rate 389 ms Maryana Lorenzana PA-C [facility] [employer] Work Phone: Encounters Encounter Date Encounter Type Care Provider Facility Start: 01-08-2017 End: 01-08-2017 Ambulatory REINALDO HERNANDEZ [facility] Procedures Date Procedure Procedure Detail Performing Clinician Start: 03-29-2017 End: 04-13-2017 Echocardiography Nikos Márquez MD Start: 03-29-2017 End: 03-29-2017 Follow Up Appt 6 months Nikos Márquez MD Start: 03-29-2017 End: 03-29-2017 MMM Nikos Márquez MD Start: 03-18-2017 End: 03-18-2017 Dietary management education, guidance, and counseling Maryana Lorenzana PA-C Start: 03-14-2017 End: 03-26-2017 *Hepatic Function Panel Kate mccarthy PA-C Work Phone: Start: 03-14-2017 End: 03-26-2017 Lipid 1996 panel - Serum or Plasma Kate Sanchez PA-C Work Phone: Start: 09-18-2016 End: 09-18-2016 Ecg routine ecg w/least 12 lds w/i&r Kate Sanchez PA-C Work Phone: Start: 09-18-2016 End: 09-18-2016 Follow Up Appt 6 months Kate mccarthy PA-C Work Phone: Start: 09-18-2016 End: 09-18-2016 PFM Kate Sanchez PA-C Work Phone: Start: 09-18-2016 End: 09-18-2016 Electrocardiogram, complete Kate Wahl PA-C Work Phone: Start: 09-18-2016 End: 09-18-2016 Follow Up Appt 6 months Kate mccarthy PA-C Work Phone: Start: 09-18-2016 End: 09-18-2016 PFM Kate Sanchez PA-C Work Phone: Start: 09-16-2016 End: 09-16-2016 *Hepatic Function Panel Nikos Márquez MD Start: 09-16-2016 End: 09-16-2016 Lipid 1996 panel - Serum or Plasma Nikos Márquez MD Start: 09-16-2016 End: 09-16-2016 *Hepatic Function Panel Nikos Márquez MD Start: 09-16-2016 End: 09-16-2016 Lipid panel [AGGREGATE] Nikos Márquez MD Start: 03-20-2016 End: 03-20-2016 Follow Up Appt 1 year Sid A Nye [employer] MACHINE OPERATOR-C Start: 03-20-2016 End: 03-20-2016 Follow Up Appt 6 months Sid A Nye [employer] CUTTING MACHINE OPERATOR -C Start: 03-20-2016 End: 03-20-2016 MMM Sid A Nye [employer] C[employer]TING MACHINE OPERATOR-C Start: 03-20-2016 End: 03-20-2016 PFM Sid A Nye [employer] CUTTING MACHINE OPERATOR-C Start: 03-20-2016 End: 03-20-2016 Follow Up Appt 1 year Sid A Nye [employer] CUTTING MACHINE OPERATOR-C Start: 03-20-2016 End: 03-20-2016 Follow Up Appt 6 months Sid A Nye [employer] CUTTING MACHINE OPERATOR -C Start: 03-20-2016 End: 03-20-2016 MMM Sid Nye FL[employer] CUTTING MACHINE OPERATOR-C Start: 03-20-2016 End: 03-20-2016 PFM Sid Nye FL[employer] CUTTING MACHINE OPERATOR-C Start: 03-16-2016 End: 03-18-2016 *Hepatic Function Panel Nikos Márquez MD Start: 03-16-2016 End: 03-18-2016 Lipid 1996 panel - Serum or Plasma Nikos Márquez MD Start: 03-16-2016 End: 03-18-2016 *Hepatic Function Panel Nikos Márquez MD Start: 03-16-2016 End: 03-18-2016 Lipid panel [AGGREGATE] Nikos Márquez MD Start: 09-20-2015 End: 03-04-2016 *Hepatic Function Panel Nikos Márqeuz MD Start: 09-20-2015 End: 09-20-2015 Follow Up Appt 6 months Nikos Márquez MD Start: 09-20-2015 End: 03-04-2016 Lipid 1996 panel - Serum or Plasma Nikos Márquez MD Start: 09-20-2015 End: 09-20-2015 MMM Nikos Márquez MD Start: 09-20-2015 End: 03-04-2016 *Hepatic Function Panel Nikos Márquez MD Start: 09-20-2015 End: 09-20-2015 Follow Up Appt 6 months Nikos Márquez MD Start: 09-20-2015 End: 03-04-2016 Lipid panel [AGGREGATE] Nikos Márquez MD Start: 09-20-2015 End: 09-20-2015 MMM Nikos Márquez MD Start: 09-16-2015 End: 09-18-2015 *Hepatic Function Panel Nikos Márquez MD Start: 09-16-2015 End: 09-18-2015 Lipid 1996 panel - Serum or Plasma Nikos Márquez MD Start: 09-16-2015 End: 09-18-2015 *Hepatic Function Panel Nikos Márquez MD Start: 09-16-2015 End: 09-18-2015 Lipid panel [AGGREGATE] Nikos Márquez MD Start: 04-05-2015 End: 04-06-2015 Documentation of current medications Kate Sanchez PA-C Work Phone: Start: 04-05-2015 End: 03-04-2016 Follow Up Appt 6 months Kate mccarthy PA-C Work Phone: Start: 04-05-2015 End: 03-04-2016 PFM Kate Sanchez PA-C Work Phone: Start: 04-05-2015 End: 04-06-2015 Documentation of current medications Kate Sanchez PA-C Work Phone: Start: 04-05-2015 End: 03-04-2016 Follow Up Appt 6 months Kate mccarthy PA-C Work Phone: Start: 04-05-2015 End: 03-04-2016 PF Kate Sanchez PA-C Work Phone: Start: 03-14-2015 End: 03-15-2015 *Hepatic Function Panel Nikos Márquez MD Start: 03-14-2015 End: 03-15-2015 Lipid 1996 panel - Serum or Plasma Nikos Márquez MD Start: 03-14-2015 End: 03-15-2015 *Hepatic Function Panel Nikos Márquez MD Start: 03-14-2015 End: 03-15-2015 Lipid panel [AGGREGATE] Nikos Márquez MD Start: 09-21-2014 End: 03-15-2015 *Hepatic Function Panel Nikos Márquez MD Start: 09-21-2014 End: 09-22-2014 Documentation of current medications Nikos Márquez MD Start: 09-21-2014 End: 09-21-2014 Follow Up Appt 6 months Nikos Márquez MD Start: 09-21-2014 End: 03-15-2015 Lipid 1996 panel - Serum or Plasma Nikos Márquez MD Start: 09-21-2014 End: 09-21-2014 MMM Nikos Márquez MD Start: 09-21-2014 End: 03-15-2015 *Hepatic Function Panel Nikos Márquez MD Start: 09-21-2014 End: 09-22-2014 Documentation of current medications Nikos Márquez MD Start: 09-21-2014 End: 09-21-2014 Follow Up Appt 6 months Nikos Márquez MD Start: 09-21-2014 End: 03-15-2015 Lipid panel [AGGREGATE] Nikos Márquez MD Start: 09-21-2014 End: 09-21-2014 MMM Nikos Márquez MD Start: 09-14-2014 End: 09-20-2014 *Hepatic Function Panel Nikos Márquez MD Start: 09-14-2014 End: 09-20-2014 Lipid 1996 panel - Serum or Plasma Nikos Márquez MD Start: 09-14-2014 End: 09-20-2014 *Hepatic Function Panel Nikos Márquez MD Start: 09-14-2014 End: 09-20-2014 Lipid panel [AGGREGATE] Nikos Márquez MD Start: 03-23-2014 End: 03-23-2014 Follow Up Appt Other Kate jones PA-C Work Phone: Start: 03-23-2014 End: 03-23-2014 Follow Up Appt Other Kate jones PA-C Work Phone: Start: 09-22-2013 End: 03-16-2014 *Hepatic Function Panel Nikos Márquez MD Start: 09-22-2013 End: 09-22-2013 Ecg routine ecg w/least 12 lds w/i&r Nikos Márquez MD Start: 09-22-2013 End: 03-23-2014 Echocardiography Nikos Márquez MD Start: 09-22-2013 End: 03-16-2014 Lipid 1996 panel - Serum or Plasma Nikos Márquez MD Start: 09-22-2013 End: 09-22-2013 MMM Nikos Márquez MD Start: 09-22-2013 End: 03-16-2014 *Hepatic Function Panel Nikos Márquez MD Start: 09-22-2013 End: 03-23-2014 Echocardiography Nikos Márquez MD Start: 09-22-2013 End: 09-22-2013 Electrocardiogram, complete Nikos whitley MD Start: 09-22-2013 End: 03-16-2014 Lipid panel [AGGREGATE] Nikos Márquez MD Start: 09-22-2013 End: 09-22-2013 MMM Nikos Márquez MD Start: 05-14-2013 End: 09-18-2013 *Hepatic Function Panel Nikos Márquez MD Start: 05-14-2013 End: 09-18-2013 Lipid 1996 panel - Serum or Plasma Nikos Márquez MD Start: 05-14-2013 End: 09-18-2013 *Hepatic Function Panel Nikos Márquez MD Start: 05-14-2013 End: 09-18-2013 Lipid panel [AGGREGATE] Nikos Márquez MD Start: 02-17-2013 End: 03-23-2014 Echocardiography Nikos Márquez MD Start: 02-17-2013 End: 03-23-2014 PFM Nikos Márquez MD Start: 02-17-2013 End: 03-23-2014 Echocardiography Nikos Márquez MD Start: 02-17-2013 End: 03-23-2014 PFM Nikos Márquez MD Start: 11-30-2012 End: 12-07-2012 *Hepatic Function Panel Harjeet Best MD Start: 11-30-2012 End: 12-07-2012 Lipid 1996 panel - Serum or Plasma Harjeet Best MD Start: 11-30-2012 End: 12-07-2012 *Hepatic Function Panel Harjeet Best MD Start: 11-30-2012 End: 12-07-2012 Lipid panel [AGGREGATE] Harjeet Best MD Start: 08-12-2012 End: 08-12-2012 Follow Up Appt 6 months Harjeet Best MD Start: 08-12-2012 End: 08-12-2012 Follow Up Appt 6 months Harjeet Best MD Start: 02-26-2012 End: 03-08-2012 Echocardiography Harjeet Best MD Start: 02-26-2012 End: 02-26-2012 Follow Up Appt 6 months Harjeet Best MD Start: 02-26-2012 End: 03-08-2012 Echocardiography Harjeet Best MD Start: 02-26-2012 End: 02-26-2012 Follow Up Appt 6 months Harjeet Best MD Start: 02-17-2012 End: 02-19-2012 *Hepatic Function Panel Harjeet Best MD Start: 02-17-2012 End: 02-19-2012 Lipid 1996 panel - Serum or Plasma Harjeet Bset MD Start: 02-17-2012 End: 02-19-2012 *Hepatic Function Panel Harjeet Best MD Start: 02-17-2012 End: 02-19-2012 Lipid panel [AGGREGATE] Harjeet Best MD Start: 08-21-2011 End: 08-21-2011 Ecg routine ecg w/least 12 lds w/i&r Harjeet Best MD Start: 08-21-2011 End: 08-21-2011 Echocardiography Harjeet Best MD Start: 08-21-2011 End: 08-21-2011 Echocardiography Harjeet Bets MD Start: 08-21-2011 End: 08-21-2011 Electrocardiogram, complete Harjeet Best MD Plan of Treatment Date Care Activity Detail Author Start: 09-28-2017 End: 09-28-2017 Appointment Appointment [facility] Work Phone: Start: 09-23-2017 End: 03-26-2017 *Hepatic Function Panel *Hepatic Function Panel [facility] Work Phone: Start: 09-23-2017 End: 03-26-2017 Lipid panel [AGGREGATE] *Lipid Profile CC PCP [facility] Work Phone: Start: 04-09-2017 End: 09-18-2016 *Hepatic Function Panel *Hepatic Function Panel [facility] [employer] Work Phone: Start: 04-09-2017 End: 09-18-2016 Lipid panel [AGGREGATE] *Lipid Profile CC PCP [facility] [employer] Work Phone: Start: 04-09-2017 End: 09-18-2016 *Hepatic Function Panel *Hepatic Function Panel [facility] [employer] Work Phone: Start: 04-09-2017 End: 09-18-2016 Lipid panel [AGGREGATE] *Lipid Profile CC PCP [facility] [employer] Work Phone: Start: 03-29-2017 End: 03-29-2017 *Hepatic Function Panel *Hepatic Function Panel [facility] Work Phone: Start: 03-29-2017 End: 03-29-2017 Echocardiography Echocardiogram (complete) [facility] Work Phone: Start: 03-29-2017 End: 03-29-2017 Follow Up Appt 6 months Follow Up Appt 6 months [facility] Work Phone: Start: 03-29-2017 End: 03-29-2017 Lipid panel [AGGREGATE] *Lipid Profile CC PCP [facility] Work Phone: Start: 03-29-2017 End: 03-29-2017 MMM MMM [facility] Work Phone: Start: 03-29-2017 End: 03-29-2017 Appointment Appointment [facility] [employer] Work Phone: Start: 03-18-2017 End: 03-18-2017 Appointment Appointment [facility] [employer] Work Phone: Start: 03-14-2017 End: 03-26-2017 *Hepatic Function Panel *Hepatic Function Panel [facility] Work Phone: Start: 03-14-2017 End: 03-26-2017 Lipid panel [AGGREGATE] *Lipid Profile CC PCP [facility] Work Phone: Start: 03-09-2017 End: 03-09-2017 Exc b9 lesion mrgn xcp sk tg t/a/l 1.1-2.0 cm Excision Benign Lesion Trunk/Arm/Leg 1.1-2.0 cm [facility] [employer] Work Phone: Start: 03-09-2017 End: 03-09-2017 Appointment Appointment [facility] [employer] Work Phone: Start: 03-09-2017 End: 03-09-2017 Exc tr-ext b9+soraida 1.1-2 cm Excision Benign Lesion Trunk/Arm/Leg 1.1-2.0 cm [facility] [employer] Work Phone: Start: 09-18-2016 End: 09-18-2016 Ecg routine ecg w/least 12 lds w/i&r EKG (In office) [facility] [employer] Work Phone: Start: 09-18-2016 End: 09-18-2016 Follow Up Appt 6 months Follow Up Appt 6 months [facility] [employer] Work Phone: Start: 09-18-2016 End: 09-18-2016 PFM PFM [facility] [employer] Work Phone: Start: 09-18-2016 End: 09-18-2016 Electrocardiogram, complete EKG (In office) [facility] [employer] Work Phone: Start: 09-18-2016 End: 09-18-2016 Follow Up Appt 6 months Follow Up Appt 6 months [facility] [employer] Work Phone: Start: 09-18-2016 End: 09-18-2016 PFM PFM [facility] [employer] Work Phone: Start: 09-16-2016 End: 09-16-2016 *Hepatic Function Panel *Hepatic Function Panel [facility] [employer] Work Phone: Start: 09-16-2016 End: 09-16-2016 Lipid panel [AGGREGATE] *Lipid Profile CC PCP [facility] [employer] Work Phone: Start: 09-16-2016 End: 09-16-2016 *Hepatic Function Panel *Hepatic Function Panel [facility] [employer] Work Phone: Start: 09-16-2016 End: 09-16-2016 Lipid panel [AGGREGATE] *Lipid Profile CC PCP [facility] [employer] Work Phone: Start: 03-20-2016 End: 03-20-2016 Follow Up Appt 1 year Follow Up Appt 1 year [facility] Work Phone: Start: 03-20-2016 End: 03-20-2016 Follow Up Appt 6 months Follow Up Appt 6 months [facility] [employer] Work Phone: Start: 03-20-2016 End: 03-20-2016 MMM MMM [facility] Work Phone: Start: 03-20-2016 End: 03-20-2016 PFM PFM [facility] [employer] Work Phone: Start: 03-20-2016 End: 03-20-2016 Follow Up Appt 1 year Follow Up Appt 1 year [facility] [employer] Work Phone: Start: 03-20-2016 End: 03-20-2016 Follow Up Appt 6 months Follow Up Appt 6 months [facility] [employer] Work Phone: Start: 03-20-2016 End: 03-20-2016 MMM MMM [facility] [employer] Work Phone: Start: 03-20-2016 End: 03-20-2016 PFM PFM [facility] [employer] Work Phone: Start: 03-16-2016 End: 03-18-2016 *Hepatic Function Panel *Hepatic Function Panel [facility] [employer] Work Phone: Start: 03-16-2016 End: 03-18-2016 Lipid panel [AGGREGATE] *Lipid Profile CC PCP [facility] [employer] Work Phone: Start: 03-16-2016 End: 03-18-2016 *Hepatic Function Panel *Hepatic Function Panel [facility] [employer] Work Phone: Start: 03-16-2016 End: 03-18-2016 Lipid panel [AGGREGATE] *Lipid Profile CC PCP [facility] [employer] Work Phone: Start: 09-20-2015 End: 03-04-2016 *Hepatic Function Panel *Hepatic Function Panel [facility] [employer] Work Phone: Start: 09-20-2015 End: 09-20-2015 Follow Up Appt 6 months Follow Up Appt 6 months [facility] [employer] Work Phone: Start: 09-20-2015 End: 03-04-2016 Lipid panel [AGGREGATE] *Lipid Profile CC PCP [facility] [employer] Work Phone: Start: 09-20-2015 End: 09-20-2015 MMM MMM [facility] [employer] Work Phone: Start: 09-20-2015 End: 03-04-2016 *Hepatic Function Panel *Hepatic Function Panel [facility] [employer] Work Phone: Start: 09-20-2015 End: 09-20-2015 Follow Up Appt 6 months Follow Up Appt 6 months [facility] [employer] Work Phone: Start: 09-20-2015 End: 03-04-2016 Lipid panel [AGGREGATE] *Lipid Profile CC PCP [facility] [employer] Work Phone: Start: 09-20-2015 End: 09-20-2015 MMM MMM [facility] [employer] Work Phone: Start: 09-16-2015 End: 09-18-2015 *Hepatic Function Panel *Hepatic Function Panel [facility] [employer] Work Phone: Start: 09-16-2015 End: 09-18-2015 Lipid panel [AGGREGATE] *Lipid Profile CC PCP [facility] [employer] Work Phone: Start: 09-16-2015 End: 09-18-2015 *Hepatic Function Panel *Hepatic Function Panel [facility] [employer] Work Phone: Start: 09-16-2015 End: 09-18-2015 Lipid panel [AGGREGATE] *Lipid Profile CC PCP [facility] [employer] Work Phone: Start: 04-05-2015 End: 04-05-2015 Follow Up Appt 6 months Follow Up Appt 6 months [facility] [employer] Work Phone: Start: 04-05-2015 End: 03-04-2016 PFM PFM [facility] [employer] Work Phone: Start: 04-05-2015 End: 04-05-2015 Follow Up Appt 6 months Follow Up Appt 6 months [facility] Work Phone: Start: 04-05-2015 End: 03-04-2016 PFM PFM [facility] Work Phone: Start: 03-14-2015 End: 03-15-2015 *Hepatic Function Panel *Hepatic Function Panel [facility] [employer] Work Phone: Start: 03-14-2015 End: 03-15-2015 Lipid panel [AGGREGATE] *Lipid Profile CC PCP [facility] [employer] Work Phone: Start: 03-14-2015 End: 03-15-2015 *Hepatic Function Panel *Hepatic Function Panel [facility] [employer] Work Phone: Start: 03-14-2015 End: 03-15-2015 Lipid panel [AGGREGATE] *Lipid Profile CC PCP [facility] [employer] Work Phone: Start: 09-21-2014 End: 03-15-2015 *Hepatic Function Panel *Hepatic Function Panel [facility] [employer] Work Phone: Start: 09-21-2014 End: 09-21-2014 Follow Up Appt 6 months Follow Up Appt 6 months [facility] [employer] Work Phone: Start: 09-21-2014 End: 03-15-2015 Lipid panel [AGGREGATE] *Lipid Profile CC PCP [facility] [employer] Work Phone: Start: 09-21-2014 End: 09-21-2014 MMM MMM [facility] Work Phone: Start: 09-21-2014 End: 03-15-2015 *Hepatic Function Panel *Hepatic Function Panel [facility] [employer] Work Phone: Start: 09-21-2014 End: 09-21-2014 Follow Up Appt 6 months Follow Up Appt 6 months [facility] [employer] Work Phone: Start: 09-21-2014 End: 03-15-2015 Lipid panel [AGGREGATE] *Lipid Profile CC PCP [facility] [employer] Work Phone: Start: 09-21-2014 End: 09-21-2014 MMM MMM [facility] [employer] Work Phone: Start: 09-14-2014 End: 09-20-2014 *Hepatic Function Panel *Hepatic Function Panel [facility] [employer] Work Phone: Start: 09-14-2014 End: 09-20-2014 Lipid panel [AGGREGATE] *Lipid Profile CC PCP [facility] [employer] Work Phone: Start: 09-14-2014 End: 09-20-2014 *Hepatic Function Panel *Hepatic Function Panel [facility] [employer] Work Phone: Start: 09-14-2014 End: 09-20-2014 Lipid panel [AGGREGATE] *Lipid Profile CC PCP [facility] [employer] Work Phone: Start: 03-23-2014 End: 03-23-2014 Follow Up Appt Other Follow Up Appt Other [facility] [employer] Work Phone: Start: 03-23-2014 End: 03-23-2014 Follow Up Appt Other Follow Up Appt Other [facility] [employer] Work Phone: Start: 09-22-2013 End: 03-16-2014 *Hepatic Function Panel *Hepatic Function Panel [facility] [employer] Work Phone: Start: 09-22-2013 End: 09-22-2013 Ecg routine ecg w/least 12 lds w/i&r EKG (In office) [facility] [employer] Work Phone: Start: 09-22-2013 End: 09-22-2013 Echocardiography Echocardiogram (complete) [facility] [employer] Work Phone: Start: 09-22-2013 End: 09-22-2013 Follow Up Appt 6 months Follow Up Appt 6 months [facility] [employer] Work Phone: Start: 09-22-2013 End: 03-16-2014 Lipid panel [AGGREGATE] *Lipid Profile CC PCP [facility] [employer] Work Phone: Start: 09-22-2013 End: 09-22-2013 MMM MMM [facility] [employer] Work Phone: Start: 09-22-2013 End: 03-16-2014 *Hepatic Function Panel *Hepatic Function Panel [facility] [employer] Work Phone: Start: 09-22-2013 End: 09-22-2013 Echocardiography Echocardiogram (complete) [facility] [employer] Work Phone: Start: 09-22-2013 End: 09-22-2013 Electrocardiogram, complete EKG (In office) [facility] [employer] Work Phone: Start: 09-22-2013 End: 09-22-2013 Follow Up Appt 6 months Follow Up Appt 6 months [facility] [employer] Work Phone: Start: 09-22-2013 End: 03-16-2014 Lipid panel [AGGREGATE] *Lipid Profile CC PCP [facility] [employer] Work Phone: Start: 09-22-2013 End: 09-22-2013 MMM MMM [facility] [employer] Work Phone: Start: 05-14-2013 End: 09-18-2013 *Hepatic Function Panel *Hepatic Function Panel [facility] [employer] Work Phone: Start: 05-14-2013 End: 09-18-2013 Lipid panel [AGGREGATE] *Lipid Profile CC PCP [facility] [employer] Work Phone: Start: 05-14-2013 End: 09-18-2013 *Hepatic Function Panel *Hepatic Function Panel [facility] [employer] Work Phone: Start: 05-14-2013 End: 09-18-2013 Lipid panel [AGGREGATE] *Lipid Profile CC PCP [facility] [employer] Work Phone: Start: 02-17-2013 End: 02-17-2013 Echocardiography Echocardiogram (complete) [facility] [employer] Work Phone: Start: 02-17-2013 End: 03-23-2014 Follow Up Appt 6 months Follow Up Appt 6 months [facility] [employer] Work Phone: Start: 02-17-2013 End: 03-23-2014 PFM PFM [facility] [employer] Work Phone: Start: 02-17-2013 End: 02-17-2013 Echocardiography Echocardiogram (complete) [facility] [employer] Work Phone: Start: 02-17-2013 End: 03-23-2014 Follow Up Appt 6 months Follow Up Appt 6 months [facility] [employer] Work Phone: Start: 02-17-2013 End: 03-23-2014 PFM PFM [facility] [employer] Work Phone: Start: 11-30-2012 End: 12-07-2012 *Hepatic Function Panel *Hepatic Function Panel [facility] [employer] Work Phone: Start: 11-30-2012 End: 12-07-2012 Lipid panel [AGGREGATE] *Lipid Profile [facility] [employer] Work Phone: Start: 11-30-2012 End: 12-07-2012 *Hepatic Function Panel *Hepatic Function Panel [facility] [employer] Work Phone: Start: 11-30-2012 End: 12-07-2012 Lipid panel [AGGREGATE] *Lipid Profile [facility] [employer] Work Phone: Start: 08-12-2012 End: 08-12-2012 Follow Up Appt 6 months Follow Up Appt 6 months [facility] [employer] Work Phone: Start: 08-12-2012 End: 08-12-2012 Follow Up Appt 6 months Follow Up Appt 6 months [facility] [employer] Work Phone: Start: 02-26-2012 End: 02-26-2012 Echocardiography Echocardiogram (complete) [facility] [employer] Work Phone: Start: 02-26-2012 End: 02-26-2012 Follow Up Appt 6 months Follow Up Appt 6 months [facility] [employer] Work Phone: Start: 02-26-2012 End: 02-26-2012 Echocardiography Echocardiogram (complete) [facility] [employer] Work Phone: Start: 02-26-2012 End: 02-26-2012 Follow Up Appt 6 months Follow Up Appt 6 months [facility] [employer] Work Phone: Start: 02-17-2012 End: 02-19-2012 *Hepatic Function Panel *Hepatic Function Panel [facility] [employer] Work Phone: Start: 02-17-2012 End: 02-19-2012 Lipid panel [AGGREGATE] *Lipid Profile [facility] [employer] Work Phone: Start: 02-17-2012 End: 02-19-2012 *Hepatic Function Panel *Hepatic Function Panel [facility] [employer] Work Phone: Start: 02-17-2012 End: 02-19-2012 Lipid panel [AGGREGATE] *Lipid Profile [facility] [employer] Work Phone: Start: 08-21-2011 End: 08-21-2011 Ecg routine ecg w/least 12 lds w/i&r EKG (In office) [facility] [employer] Work Phone: Start: 08-21-2011 End: 08-21-2011 Follow Up Appt 6 months Follow Up Appt 6 months [facility] [employer] Work Phone: Start: 08-21-2011 End: 08-21-2011 Electrocardiogram, complete EKG (In office) [facility] [employer] Work Phone: Start: 08-21-2011 End: 08-21-2011 Follow Up Appt 6 months Follow Up Appt 6 months [facility] [employer] Work Phone: Patient Education [facility] Work Phone: Summary Purpose Family History No Family History Records Found Advance Directives No Advanced Directives Records Found Additional Source Comments (unrecognized sect ion and content) No Status Records Found INFORMATION SOURCE (unrecogn ized section and content) DATE CREATED AUTHOR 12/08/2017 [facility] FOR RECORDS PERTAINING TO PATIENTS WHO ARE OR HAVE BEEN ENROLLED IN A CHEMICAL DEPENDENCY/SUBSTANCEABUSE PROGRAM, SOME INFORMATION MAY BE OMITTED. This clinical summary was aggregated from multiple sources. Caution should be exercised in using it in the provision of clinical care. This summary normalizes information from multiple sources, and as a consequence, information in this document may materially change the coding, format and clinical context of patient data. In addition, data may be omitted in some cases. CLINICAL DECISIONS SHOULD BE BASED ON THE PRIMARY CLINICAL RECORDS. [employer] [facility] provides no warranty or guarantee of the accuracy or completeness of information in this document.
[2024-04-05 09:20] LABS: Absolute Lymphocyte Count 1.03 X10^3/uL (0.83-4.51); Absolute Neutrophil Count 3.8 X10^3/uL (2.0-7.7); Basophil# 0.06 X10^3/uL; Eosinophils% 5.2 % (0-5); Hematocrit 52.5 % (40-54); Hemoglobin 17.3 g/dL (13.0-16.5); Lymphocyte # 1.03 X10^3/ul (0.83-4.51); Lymphocyte % 17.9 % (19-41); Mean Corpuscular Hgb 31.7 pg (27.0-32.0); Mean Corpuscular Volume 96.2 fL (80-94); Monocyte# 0.59 X10^3/uL; Monocyte% 10.2 % (0-10); NRBC Flagged by Analyzer 0 % (0-5); Neutrophil # 3.76 X10^3/uL (2.7-7.7); Neutrophil % 65.4 % (47-70); Platelet Count 276 K/mm3 (150-450); RBC Distribution Width CV 11.6 % (11.6-14.6); Red Blood Count 5.46 M/mm3 (4.6-6.2); White Blood Count 5.8 K/mm3 (4.4-11.0)
[2024-04-05 09:22] LABS: Carboxyhemoglobin Frac (CO) 1.6 % (0.0-1.5)
[2024-04-05 09:46] LABS: Carboxyhemoglobin Order ORDER TUBE
[2024-04-05 09:47] LABS: ALB/GLOB Ratio 0.9 RATIO (0.9-2.4); AST(SGOT) 18 U/L (15-37); Alanine Aminotransfer ALT/SGPT 36 U/L (16-61); Albumin, Serum 3.6 g/dL (3.2-5.0); Alkaline Phosphatase 65 U/L (45-117); Anion Gap 7 (5-15); BUN 21 mg/dL (7-18); BUN/Creat Ratio 19.3 RATIO (10-20); Calcium,Total 9.4 mg/dL (8.5-10.1); Chloride 102 mmol/L (98-107); Cholesterol 128 mg/dL (200); Creatinine, Serum 1.09 mg/dL (0.70-1.30); EST Glomerular Filtration Rate 71 mL/min (>60); Est Glom Filt Rate - Afr Amer 86 mL/min (>60); Glucose 120 mg/dL (74-106); High Density Lipoprotein 42 mg/dL; PSA,Total - Annual Screen 1.43 ng/mL (0.00-4.00); Protein, Total 7.6 g/dL (6.4-8.2); Sodium Level 136 mmol/L (136-145); Triglycerides 67 mg/dL; Very Low Density Lipoprotein 13 mg/dL (5-40)
[2024-04-05 09:50] LABS: Microalbumin,Random Urine 16.7 mg/L (NO RANGE EST.)
== END | disposition home or self-care (01) ==
LOC: VSLAB 08:45
PROVIDERS: PCP Nurse Practitioner Family; Visit Provider Nurse Practitioner Family
DX: D75.1 Secondary polycythemia (principal); E11.9 Type 2 diabetes mellitus without complications; Z12.5 Encounter for screening for malignant neoplasm of prostate
CPT/HCPCS: 36415; 80053; 80061; 82043; 82375; 84153; 84443; 85025; G0103

== ENCOUNTER → 2025-04-11 | Outpatient (CLI) | payer MEDICARE, SELFPAY ==
[2025-04-11 12:27] LABS: Hematocrit 51.3 % (40-54); Hemoglobin 16.9 g/dL (13.0-16.5); Immature Granulocytes Count 0.030 X10^3/uL (0.0-0.0); Mean Corp Hgb Conc 32.9 g/dL (32-36); Mean Corpuscular Volume 97.0 fL (80-94); Mean Platelet Vol. 9.8 fl (6.2-12.0); NRBC Flagged by Analyzer 0 % (0-5); Platelet Count 271 K/mm3 (150-450); RBC Distribution Width CV 11.8 % (11.6-14.6); RBC Distribution Width SD 41.9 fl (35.1-43.9); Red Blood Count 5.29 M/mm3 (4.6-6.2); White Blood Count 5.5 K/mm3 (4.4-11.0)
[2025-04-11 13:09] LABS: AST(SGOT) 19 U/L (<=37); Alanine Aminotransfer ALT/SGPT 26 U/L (<=46); Albumin, Serum 4.2 g/dL (3.4-4.8); Alkaline Phosphatase 55 U/L (40-129); Anion Gap 11 (5-15); BUN 19 mg/dL (4-19); BUN/Creat Ratio 17.5 RATIO (10-20); Calcium,Total 9.9 mg/dL (7.6-11.0); Carbon Dioxide 26.6 mmol/L (21.0-32.0); Chloride 101 mmol/L (98-108); Globulin 2.9 g/dL (2.2-4.2); Glucose 127 mg/dL (70-99); PSA,Total- Diagnostic 1.51 ng/mL (0.00-4.00); Potassium 4.4 mmol/L (3.3-5.1); Vitamin B12 757 pg/mL (180-914); Vitamin D,25 Hydroxy 33.9 ng/mL (30-100)
[2025-04-12 14:08] LABS: Lyme Scn Total Ab w/Rflx Negative (Negative)
[2025-04-12 15:19] LABS: Cholesterol 132 mg/dL (<=200); Low Density Lipoprotein Calc. 78 mg/dL; Triglycerides 79 mg/dL; Very Low Density Lipoprotein 16 mg/dL (5-40); cholesterol:hdl ratio screen 3.41
== END | disposition home or self-care (01) ==
LOC: VSLAB 08:46
PROVIDERS: PCP Nurse Practitioner Family; Referring Provider Nurse Practitioner Family; Visit Provider Nurse Practitioner Family
DX: E11.9 Type 2 diabetes mellitus without complications (principal); E56.1 Deficiency of vitamin K; R54 Age-related physical debility
CPT/HCPCS: 36415; 80053; 80061; 82306; 82607; 83036; 84153; 84443; 85025; 86618